=== PATIENT | male | born 1970 | race Caucasian/White ===

== ENCOUNTER 2020-08-17 16:16 | Outpatient (REF) | payer OTHER, SELFPAY | END 2020-08-17 16:17 | disposition home or self-care (01) | LOC: HO.LAB 16:16 | PROVIDERS: Visit Provider Internal Medicine | DX: Z20.828 Contact with and (suspected) exposure to other viral communicable diseases (principal) | CPT/HCPCS: 87635 ==

== ENCOUNTER 2020-09-02 14:16 | Outpatient (REF) | payer OTHER, SELFPAY | END 2020-09-02 14:17 | disposition home or self-care (01) | LOC: HO.LAB 14:16 | PROVIDERS: PCP Nurse Practitioner Family; Visit Provider Internal Medicine | DX: Z20.828 Contact with and (suspected) exposure to other viral communicable diseases (principal) | CPT/HCPCS: C9803; U0003 ==

== ENCOUNTER 2020-09-06 09:31 | Outpatient (REF) | payer OTHER, SELFPAY ==
[2020-09-06 10:24] LABS: MANUAL DIFF FLAG NO
[2020-09-06 10:32] LABS: Basophils Percent Auto 0.3 % (0-2); Eosinophils Absolute Auto 0.1 X10*3/uL (0.0-0.4); Eosinophils Percent Auto 0.7 % (0-4); Hematocrit 49.7 % (42-52); Imm Gran Abs Auto 0.04 X10*3/uL (0.00-0.03); Imm Gran Pct Auto 0.6 % (0.0-0.4); Lymphocytes Absolute Auto 2.8 X10*3/uL (1.2-4.9); Lymphocytes Percent Auto 40.7 % (20-40); Mean Corpuscular HGB Conc 32.2 g/dl (31.0-36.0); Mean Corpuscular Hemoglobin 26.9 pg (27.0-33.0); Mean Corpuscular Volume 83.7 fL (80-98); Mean Platelet Volume 10.7 fL (9.4-12.4); Monocytes Absolute Auto 0.5 X10*3/uL (0.1-1.2); Monocytes Percent Auto 7.2 % (2-11); Neutrophils Absolute Auto 3.5 X10*3/uL (2.0-8.3); Neutrophils Percent Auto 50.5 % (45-73); Platelet Count 231 X10*3/uL (160-400); Red Blood Count 5.94 X10*6/uL (4.60-5.80)
[2020-09-06 10:50] LABS: Anion Gap 12 (12-20); Blood Urea Nitrogen 17 mg/dL (9-16); Carbon Dioxide 27 mmol/L (22-29); Chloride 104 mmol/L (96-108); Cholesterol 128 mg/dL; Estimated Glomerular Filt Rate > 60; Glucose Fasting 97 mg/dL (60-99); HDL Cholesterol 41 mg/dL; LDL Cholesterol Calculated 70 mg/dl; Potassium 4.8 mmol/l (3.3-5.1); Sodium 138 mmol/L (135-145); Triglycerides 88 mg/dL
== END 2020-09-06 09:32 | disposition home or self-care (01) ==
LOC: HO.LAB 09:31
PROVIDERS: Visit Provider Nurse Practitioner Family
DX: E78.00 Pure hypercholesterolemia, unspecified (principal); I10 Essential (primary) hypertension
CPT/HCPCS: 36415; 80048; 80061; 85025

== ENCOUNTER → 2021-10-10 14:40 | Outpatient (REF) | payer OTHER, SELFPAY ==
[2021-10-10 15:00] LABS: MANUAL DIFF FLAG NO
[2021-10-10 15:20] LABS: Basophils Percent Auto 0.3 % (0-2); Eosinophils Percent Auto 0.3 % (0-4); Hematocrit 49.8 % (42.0-52.0); Hemoglobin 16.2 g/dl (14.0-18.0); Imm Gran Abs Auto 0.02 X10*3/uL (0.00-0.03); Imm Gran Pct Auto 0.3 % (0.0-0.4); Lymphocytes Absolute Auto 2.4 X10*3/uL (1.2-4.9); Lymphocytes Percent Auto 38.7 % (20-40); Mean Corpuscular HGB Conc 32.5 g/dl (31.0-36.0); Mean Corpuscular Hemoglobin 26.9 pg (27.0-33.0); Mean Corpuscular Volume 82.7 fL (80.0-98.0); Mean Platelet Volume 10.7 fL (9.4-12.4); Monocytes Absolute Auto 0.4 X10*3/uL (0.1-1.2); Neutrophils Absolute Auto 3.3 x10*3/uL (2.0-8.3); Neutrophils Percent Auto 53.4 % (45-73); Platelet Count 222 X10*3/uL (160-400); Red Blood Count 6.02 X10*6/uL (4.60-5.80); Red Cell Distribution Width 13.4 % (11.0-16.0); White Blood Count 6.1 X10*3/uL (4.8-10.8)
[2021-10-10 15:42] LABS: Alanine Aminotransferase 47 U/L (0-40); Albumin Level 4.5 g/dL (3.5-5.0); Alkaline Phosphatase 96 U/L (39-117); Anion Gap 13 (12-20); Aspartate Amino Transferase 26 U/L (5-37); Bilirubin Total 0.8 mg/dL (0.0-1.0); Blood Urea Nitrogen 16 mg/dL (9-16); Calcium 9.7 mg/dL (8.4-10.2); Carbon Dioxide 25 mmol/L (22-29); Chloride 107 mmol/L (96-108); Cholesterol 209 mg/dL; Estimated Glomerular Filt Rate > 60; Glucose Fasting 95 mg/dL (60-99); HDL Cholesterol 39 mg/dL; LDL Cholesterol Calculated 148 mg/dl; Potassium 4.5 mmol/L (3.3-5.1); Sodium 140 mmol/L (135-145); Total Protein 7.3 g/dL (6.5-8.0); Triglycerides 112 mg/dL
== END ==
LOC: HO.SL 14:40
PROVIDERS: Absent Provider Nurse Practitioner Family; PCP Internal Medicine; Visit Provider Internal Medicine
DX: Z00.00 Encounter for general adult medical examination without abnormal findings (principal); E66.01 Morbid (severe) obesity due to excess calories; I10 Essential (primary) hypertension; E78.00 Pure hypercholesterolemia, unspecified; F31.9 Bipolar disorder, unspecified
CPT/HCPCS: 36415; 80053; 80061; 85025; 95806

== ENCOUNTER 2021-11-19 01:09 | Inpatient (IN) | payer OTHER, SELFPAY ==
[2021-11-19] VITALS (11 sets, daily range): BP systolic 137–172; BP diastolic 72–113; PULSE 76–97; RESP 14–18; TEMP 36.4–36.9; O2SAT 96–98; BMI 35.2
--- NOTE | ~2021-11-19 | CT_ITS ---
EXAMINATION: CT ABDOMEN AND PELVIS WITH CONTRAST CLINICAL INFORMATION: COMPARISON: None TECHNIQUE: Multidetector volumetric images were obtained from the superior aspect of the liver through the pubic symphysis following administration 85 mL of Omnipaque 350 intravenous contrast. Sagittal and coronal reformatted images were obtained on the technologist's workstation. Oral contrast: Yes This CT examination was performed using dose optimization techniques as appropriate, variously including the following: *Automated exposure control *Adjustment of mA and/or kV according to patient size (this includes techniques or standardized protocols for targeted exams where dose is matched to indication/reason for exam; i.e. extremities or head) *Use of iterative reconstruction technique DLP: 1519 mGy-cm FINDINGS: LUNG BASES: The visualized lung bases are unremarkable. LIVER, GALLBLADDER, AND BILIARY TREE: The liver is normal in size and shape. The liver is low in attenuation suggestive of fatty infiltration. No focal hepatic lesion or biliary ductal dilatation is present. The gallbladder is unremarkable with no evidence of radiopaque gallstones, gallbladder wall thickening, or obvious pericholecystic inflammatory changes. PANCREAS: Unremarkable. SPLEEN: Unremarkable. ADRENAL GLANDS: Unremarkable. KIDNEYS AND URETERS: The kidneys are normal in size, shape, and attenuation. No hydronephrosis, hydroureter, or calculi seen. No perinephric stranding. BLADDER: Unremarkable. GASTROINTESTINAL TRACT: The stomach is very dilated and fluid-filled. There are abnormal loops of proximal small bowel/jejunum. This demonstrates marked wall thickening and wall edema and dilatation. There are edematous changes of the small bowel mesentery. There is a small amount of ascites. There is a gradual transition to more normal caliber small bowel without transition zone to suggest mechanical obstruction. Small and large bowel is otherwise unremarkable. The appendix is unremarkable. ABDOMINAL WALL: Left inguinal hernia containing fat. LYMPH NODES: Normal. VASCULAR: There is stranding of the fat in the small bowel mesentery. The SMV appears enlarged. There is an apparent filling defect or under opacification of the distal SMV and SMV splenic vein portal splenic confluence for example coronal reconstructed image 64. Appearance is suggestive of SMV thrombus. The SMA is patent. Vascular structures are otherwise unremarkable. The splenic veins and renal veins are patent. PELVIC VISCERA: Unremarkable. OSSEOUS STRUCTURES: There are degenerative changes of the spine and hip joints. CT/CT abdomen pelvis w con IMPRESSION: Abnormal proximal small bowel/jejunum with wall thickening and wall edema, dilatation, stranding of the small bowel mesentery fat and small amount of ascites. There is a filling defect in the distal SMV/portal splenic confluence suggestive of a thrombus. Bowel changes may be due to ischemia. Dilated fluid-filled stomach. Fatty liver. Fleischner guidelines were followed. Findings will be communicated by the [place] work flow adult daycare coordinator Ruben Oakley.
[2021-11-19 01:30] LABS: Basophils Percent Auto 0.2 % (0-2); Eosinophils Percent Auto 0.2 % (0-4); Hematocrit 47.4 % (42.0-52.0); Hemoglobin 15.8 g/dl (14.0-18.0); Imm Gran Abs Auto 0.04 X10*3/uL (0.00-0.03); Imm Gran Pct Auto 0.4 % (0.0-0.4); Lymphocytes Absolute Auto 2.7 X10*3/uL (1.2-4.9); Lymphocytes Percent Auto 27.7 % (20-40); MANUAL DIFF FLAG NO; Mean Corpuscular HGB Conc 33.3 g/dl (31.0-36.0); Mean Corpuscular Hemoglobin 27.7 pg (27.0-33.0); Mean Corpuscular Volume 83.2 fL (80.0-98.0); Mean Platelet Volume 10.1 fL (9.4-12.4); Monocytes Absolute Auto 0.8 X10*3/uL (0.1-1.2); Monocytes Percent Auto 8.6 % (2-11); Neutrophils Percent Auto 62.9 % (45-73); Platelet Count 204 X10*3/uL (160-400); Red Cell Distribution Width 13.2 % (11.0-16.0); White Blood Count 9.6 X10*3/uL (4.8-10.8)
[2021-11-19 01:45] LABS: COVID-19 Test Negative (Negative); IDNOW Serial# 9DD0AD1C
[2021-11-19 01:48] LABS: Anion Gap 15 (12-20); Blood Urea Nitrogen 17 mg/dL (9-16); Calcium 9.7 mg/dL (8.4-10.2); Carbon Dioxide 28 mmol/L (22-29); Chloride 104 mmol/L (96-108); Creatinine Clr Calc Pharmacy 88.6; Estimated Glomerular Filt Rate 60; Glucose Random 134 mg/dL (60-115); Lipase 35 U/L (8-78); Potassium 4.3 mmol/L (3.3-5.1); Sodium 143 mmol/L (135-145)
--- NOTE | 2021-11-19 05:50 | ED_ITS ---
HPI - Abdominal Pain General Chief Complaint: Abdominal Pain Stated Complaint: abd pain x5 days Time Seen by Provider: 11/19/21 05:04 Source: patient Mode of arrival: ambulatory History of Present Illness HPI narrative: 51-year-old male who presents with history of hypertension and states that for months he has had abdominal discomfort but over the past 5 days it is significantly worsened and he states that when he coughs taken felt all the way from his left shoulder down into his abdomen. He states he has daily bowel movements denies any urinary pain/burning/frequency, denies any fevers, chills, shortness of breath, denies any chest pain/palpitations or unexplained weight loss. Patient does however describe early satiety, stating that when he eats his abdomen becomes much larger and that he requires tea to help ?things go down?. He denies any alcohol or drug use. Related Data Previous Rx's Medication Instructions Recorded atorvastatin 80 mg tablet 80 mg PO DAILY #90 cap 05/09/21 clopidogrel 75 mg tablet 75 mg PO DAILY #90 cap 05/09/21 lisinopril 10 mg tablet 10 mg PO DAILY #90 tab 05/09/21 olanzapine 2.5 mg tablet 2.5 mg PO DAILY #90 cap 05/09/21 sertraline 50 mg tablet 50 mg PO DAILY #90 cap 05/09/21 aspirin 81 mg tablet,delayed 81 mg PO DAILY #90 tab 06/11/21 release Allergies Allergy/AdvReac Type Severity Reaction Status Date / Time No Known Allergies Allergy Verified 11/15/21 15:10 [No Known Allergies*] Review of Systems Review of Systems Pertinent positives and negatives as stated in HPI 10 point review of systems is otherwise negative. Physical Exam Vital Signs: Vital Signs: Last Vital Signs Temp 97.6 F 11/19/21 06:13 Pulse 89 11/19/21 09:38 Resp 15 11/19/21 09:38 BP 153/90 H 11/19/21 09:38 Pulse Ox 97 11/19/21 09:38 BMI result Body Mass Index 35.2 VITAL SIGNS: Reviewed. GENERAL: Well developed, well nourished, in no acute distress. HEAD: Normocephalic/atraumatic EYES: PERRLA, EOMI EARS: Ext canals without abnormality, TMs non-bulging and non-erythematous NOSE: Nares patent bilateral OROPHARYNX: no oral lesions noted, posterior pharynx clear LUNGS: Normal breath sounds. No adventitious sounds or accessory muscle use. SpO2<96> CARDIOVASCULAR: Regular rate and rhythm without noted murmurs, no JVD or lower extremity edema. ABDOMEN: Obese, Soft, diffusely tender, distended with bowel sounds. MUSCULOSKELETAL: No tenderness, deformities, or effusions noted on gross inspection. EXTREMITIES: No cyanosis, clubbing or edema. SKIN: Inspection of the skin reveals no rashes NEUROLOGIC: Alert and oriented x 4. Strength and sensation to light touch were grossly intact x 4. Course Course Course Narrative: 51-year-old male with history and clinical presentation consistent with abdominal distension and pain without fevers or chills and no significant surgical history. Review of all lab work negative for acute findings although there is noted elevation of the alkaline phosphatase and ALT. Review of CT findings consistent with SMV/portal vein thrombosis with significant dilation and stranding around bowel. No mention of perforation. I discussed this case with Dr. Martínez, vascular surgery, who recommends initiating heparin drip, routine consult to General surgery, NPO with bowel rest. I discussed case with inpatient hospitalist who accepts admission. MDM - Abdominal Pain Lab Data Result diagrams: 11/19/21 09:15 11/19/21 01:23 Labs: Lab Results 11/19/21 11/19/21 11/19/21 Range/Units 01:19 01:23 01:23 WBC 9.6 (4.8-10.8) X10*3/uL RBC 5.70 (4.60-5.80) X10*6/uL Hgb 15.8 (14.0-18.0) g/dl Hct 47.4 (42.0-52.0) % MCV 83.2 (80.0-98.0) fL MCH 27.7 (27.0-33.0) pg MCHC 33.3 (31.0-36.0) g/dl RDW 13.2 (11.0-16.0) % Plt Count 204 (160-400) X10*3/uL MPV 10.1 (9.4-12.4) fL Immature Gran % (Auto) 0.4 (0.0-0.4) % Neut % (Auto) 62.9 (45-73) % Lymph % (Auto) 27.7 (20-40) % Stokes % (Auto) 8.6 (2-11) % Eos % (Auto) 0.2 (0-4) % Baso % (Auto) 0.2 (0-2) % Lymph # (Auto) 2.7 (1.2-4.9) X10*3/uL Stokes # (Auto) 0.8 (0.1-1.2) X10*3/uL Eos # (Auto) 0.0 (0.0-0.4) X10*3/uL Baso # (Auto) 0.0 (0.0-0.2) X10*3/uL Abs Immat Gran (auto) 0.04 H (0.00-0.03) X10*3/uL Absolute Neuts (auto) 6.0 (2.0-8.3) x10*3/uL Absolute Nucleated RBC 0.000 (0.0-0.012) X10*3/uL Nucleated RBC % (auto) 0.0 (0.0-0.2) /100WBC PT (9.9-13.0) SEC INR (0.9-1.1) APTT PTT (Heparin Protocol) (53-77.9) SEC D-Dimer High Sensitivty NG/ML Sodium 143 (135-145) mmol/L Potassium 4.3 (3.3-5.1) mmol/L Chloride 104 (96-108) mmol/L Carbon Dioxide 28 (22-29) mmol/L Anion Gap 15 (12-20) BUN 17 H (9-16) mg/dL Creatinine 1.27 (0.5-1.4) mg/dL Estim Creat Clear Calc 88.6 Estimated GFR 60 Random Glucose 134 H (60-115) mg/dL Lactic Acid (0.5-2.0) mmol/L Calcium 9.7 (8.4-10.2) mg/dL Total Bilirubin 0.2 (0.0-1.0) mg/dL Direct Bilirubin 0.2 (0.0-0.5) mg/dL AST 27 (5-37) U/L ALT 45 H (0-40) U/L Alkaline Phosphatase 129 H D (39-117) U/L Troponin I High Sens (<3.5-35.0) ng/L Total Protein 7.5 (6.5-8.0) g/dL Albumin 4.2 (3.5-5.0) g/dL Lipase 35 (8-78) U/L Urine Color Urine Appearance Urine pH (5.0-8.0) Ur Specific [place] (1.005-1.025) Urine Protein (NEG-TRACE) MG/DL Urine Glucose (UA) (NEG) MG/DL Urine Ketones (NEG) MG/DL Urine Blood (NEG) Urine Nitrite (NEG) Ur Leukocyte Esterase (NEG) COVID-19 (QUAN) Negative (Negative) COVID-19 Clin Com See Note 11/19/21 11/19/21 11/19/21 Range/Units 06:49 09:15 09:15 WBC (4.8-10.8) X10*3/uL RBC (4.60-5.80) X10*6/uL Hgb (14.0-18.0) g/dl Hct (42.0-52.0) % MCV (80.0-98.0) fL MCH (27.0-33.0) pg MCHC (31.0-36.0) g/dl RDW (11.0-16.0) % Plt Count (160-400) X10*3/uL MPV (9.4-12.4) fL Immature Gran % (Auto) (0.0-0.4) % Neut % (Auto) (45-73) % Lymph % (Auto) (20-40) % Stokes % (Auto) (2-11) % Eos % (Auto) (0-4) % Baso % (Auto) (0-2) % Lymph # (Auto) (1.2-4.9) X10*3/uL Stokes # (Auto) (0.1-1.2) X10*3/uL Eos # (Auto) (0.0-0.4) X10*3/uL Baso # (Auto) (0.0-0.2) X10*3/uL Abs Immat Gran (auto) (0.00-0.03) X10*3/uL Absolute Neuts (auto) (2.0-8.3) x10*3/uL Absolute Nucleated RBC (0.0-0.012) X10*3/uL Nucleated RBC % (auto) (0.0-0.2) /100WBC PT 12.1 (9.9-13.0) SEC INR 1.1 (0.9-1.1) APTT Cancelled PTT (Heparin Protocol) 31.4 L (53-77.9) SEC D-Dimer High Sensitivty 1824 NG/ML Sodium (135-145) mmol/L Potassium (3.3-5.1) mmol/L Chloride (96-108) mmol/L Carbon Dioxide (22-29) mmol/L Anion Gap (12-20) BUN (9-16) mg/dL Creatinine (0.5-1.4) mg/dL Estim Creat Clear Calc Estimated GFR Random Glucose (60-115) mg/dL Lactic Acid 1.5 (0.5-2.0) mmol/L Calcium (8.4-10.2) mg/dL Total Bilirubin (0.0-1.0) mg/dL Direct Bilirubin (0.0-0.5) mg/dL AST (5-37) U/L ALT (0-40) U/L Alkaline Phosphatase (39-117) U/L Troponin I High Sens (<3.5-35.0) ng/L Total Protein (6.5-8.0) g/dL Albumin (3.5-5.0) g/dL Lipase (8-78) U/L Urine Color YELLOW Urine Appearance CLEAR Urine pH 8.0 (5.0-8.0) Ur Specific [place] 1.015 (1.005-1.025) Urine Protein TRACE (NEG-TRACE) MG/DL Urine Glucose (UA) NEG (NEG) MG/DL Urine Ketones NEG (NEG) MG/DL Urine Blood NEG (NEG) Urine Nitrite NEG (NEG) Ur Leukocyte Esterase NEG (NEG) COVID-19 (QUAN) (Negative) COVID-19 Clin Com 11/19/21 11/19/21 Range/Units 09:15 09:15 WBC 10.4 (4.8-10.8) X10*3/uL RBC 5.80 (4.60-5.80) X10*6/uL Hgb 15.6 (14.0-18.0) g/dl Hct 48.2 (42.0-52.0) % MCV 83.1 (80.0-98.0) fL MCH 26.9 L (27.0-33.0) pg MCHC 32.4 (31.0-36.0) g/dl RDW 13.1 (11.0-16.0) % Plt Count 203 (160-400) X10*3/uL MPV 10.2 (9.4-12.4) fL Immature Gran % (Auto) (0.0-0.4) % Neut % (Auto) (45-73) % Lymph % (Auto) (20-40) % Stokes % (Auto) (2-11) % Eos % (Auto) (0-4) % Baso % (Auto) (0-2) % Lymph # (Auto) (1.2-4.9) X10*3/uL Stokes # (Auto) (0.1-1.2) X10*3/uL Eos # (Auto) (0.0-0.4) X10*3/uL Baso # (Auto) (0.0-0.2) X10*3/uL Abs Immat Gran (auto) (0.00-0.03) X10*3/uL Absolute Neuts (auto) (2.0-8.3) x10*3/uL Absolute Nucleated RBC 0.000 (0.0-0.012) X10*3/uL Nucleated RBC % (auto) 0.0 (0.0-0.2) /100WBC PT (9.9-13.0) SEC INR (0.9-1.1) APTT PTT (Heparin Protocol) (53-77.9) SEC D-Dimer High Sensitivty NG/ML Sodium (135-145) mmol/L Potassium (3.3-5.1) mmol/L Chloride (96-108) mmol/L Carbon Dioxide (22-29) mmol/L Anion Gap (12-20) BUN (9-16) mg/dL Creatinine (0.5-1.4) mg/dL Estim Creat Clear Calc Estimated GFR Random Glucose (60-115) mg/dL Lactic Acid (0.5-2.0) mmol/L Calcium (8.4-10.2) mg/dL Total Bilirubin (0.0-1.0) mg/dL Direct Bilirubin (0.0-0.5) mg/dL AST (5-37) U/L ALT (0-40) U/L Alkaline Phosphatase (39-117) U/L Troponin I High Sens 9.2 (<3.5-35.0) ng/L Total Protein (6.5-8.0) g/dL Albumin (3.5-5.0) g/dL Lipase (8-78) U/L Urine Color Urine Appearance Urine pH (5.0-8.0) Ur Specific Hayes (1.005-1.025) Urine Protein (NEG-TRACE) MG/DL Urine Glucose (UA) (NEG) MG/DL Urine Ketones (NEG) MG/DL Urine Blood (NEG) Urine Nitrite (NEG) Ur Leukocyte Esterase (NEG) COVID-19 (QUAN) (Negative) COVID-19 Clin Com ECG Data Attestation: I personally reviewed and interpreted this ECG as follows: Prior ECG tracings: available for review (07/27/2020) Interpretation: Normal sinus rhythm, HR-84, no STEMI, WA/QRS/QTC are within normal limits. Critical Care Time Critical Care Time Critical Care Time: Yes Total Critical Care Time: 30 Attestation: I personally attest to this time spent taking care of the patient. Discharge Plan Discharge Clinical Impression: HTN (hypertension), Bipolar illness, CAD (coronary artery disease), Superior mesenteric vein thrombosis Patient Disposition: Admitted As Inpatient [facility]LY [facility], [facility] Past Medical History Source: nursing notes reviewed Medical History Bipolar illness Class 2 severe obesity with body mass index (BMI) of 35 to 39.9 with serious comorbidity High cholesterol HTN (hypertension) Surgical History Status post excision of lipoma Family History Family History Father Cancer Mother No problems noted. Family/Other FH: mental illness Mental health disorder Brother No problems noted. Son In good health Daughter In good health Substance use disorder Social History Social History Housing: Apartment Alcohol intake: never Patient Tobacco Use Status: Never used Tobacco e-Cigarette/Vaping Use: Never Used Second Hand Smoke Exposure: No Use of substances other than those prescribed or required for medical reasons: No Advance Directives: No Advance Directives Information Provided: No service: No Current occupational status: disabled Cognitive needs: No Hearing needs: No Vision needs: No
--- NOTE | 2021-11-19 05:51 | ECG_ITS ---
Test Reason : ABD PAIN Blood Pressure : / mmHG Vent. Rate : 084 BPM Atrial Rate : 084 BPM P-R Int : 146 ms QRS Dur : 090 ms QT Int : 344 ms P-R-T Axes : 016 -32 056 degrees QTc Int : 406 ms Normal sinus rhythm Left axis deviation Minimal voltage criteria for LVH, may be normal variant ( R in aVL ) Inferior infarct (cited on or before 06-AUG-2018) Anterior infarct , age undetermined Abnormal ECG When compared with ECG of 27-JUL-2020 21:48, T wave inversion no longer evident in Inferior leads Referred By: Sharita Flood Electronically Signed By:Mike Jon
[2021-11-19 06:07] LABS: Alanine Aminotransferase 45 U/L (0-40); Albumin Level 4.2 g/dL (3.5-5.0); Alkaline Phosphatase 129 U/L (39-117); Aspartate Amino Transferase 27 U/L (5-37); Bilirubin Direct 0.2 mg/dL (0.0-0.5); Bilirubin Total 0.2 mg/dL (0.0-1.0); Total Protein 7.5 g/dL (6.5-8.0)
[2021-11-19 06:58] LABS: Appearance Urine CLEAR; Color Urine YELLOW; Glucose Urine UA NEG (NEG); Leukocyte Esterase Urine NEG (NEG); Nitrite Urine NEG (NEG); Specific Gravity - Urine 1.015 (1.005-1.025); Urine Blood NEG (NEG); Urine Ketones NEG (NEG); Urine Protein TRACE MG/DL (NEG-TRACE)
[2021-11-19] MEDS: iohexoL 350 MG/ML 100 ML INFUS..BTL IV (07:51)
[2021-11-19] MEDS: amLODIPine Besylate 10 MG TABLET PO (08:42)
[2021-11-19 09:23] LABS: Hematocrit 48.2 % (42.0-52.0); Hemoglobin 15.6 g/dl (14.0-18.0); Mean Corpuscular HGB Conc 32.4 g/dl (31.0-36.0); Mean Corpuscular Hemoglobin 26.9 pg (27.0-33.0); Mean Corpuscular Volume 83.1 fL (80.0-98.0); Mean Platelet Volume 10.2 fL (9.4-12.4); Platelet Count 203 X10*3/uL (160-400); Red Cell Distribution Width 13.1 % (11.0-16.0); White Blood Count 10.4 X10*3/uL (4.8-10.8)
[2021-11-19 09:33] LABS: INTERNATIONAL NORM RATIO 1.1 (0.9-1.1); Lactic Acid 1.5 mmol/L (0.5-2.0); Prothrombin Time 12.1 SEC (9.9-13.0)
[2021-11-19 09:35] LABS: D Dimer High Sensitivity 1824 NG/ML
[2021-11-19 09:36] LABS: PTT Heparin Drip 31.4 SEC (53-77.9)
[2021-11-19 09:45] LABS: Troponin-I High Sensitivity 9.2 ng/L (<3.5-35.0)
--- NOTE | 2021-11-19 10:25 | PHA.MEDREC ---
Pharmacy Consult ? Medication Reconciliation Pharmacy has completed the medication reconciliation. pt does not take any medications on a regular basis.
[2021-11-19] MEDS: Heparin Sodium,Porcine 5,000 UNIT/ML VIAL 9200 UNIT IVPUSH (11:01)
[2021-11-19] MEDS: Heparin Sodium,Porcine/1/2NS 25,000 UNIT/250 ML IV.SOLN 20.66 UNIT IVCONT (11:04)
--- NOTE | 2021-11-19 13:31 | P.HPHOSP_ITS ---
History of Present Illness Date of Service: 11/19/21 Chief Complaint: abd pain 51-year-old male with past medical history of coronary artery disease hypertension, obesity, hyperlipidemia, bipolar disorder, presents to the hospital with complaints of abdominal pain. Patient reports diffuse worsening abdominal pain for the past 5 days. Patient reports that the pain is worse with eating even drinking small amount of water. 10/10 constant, keeping him from sleep. non-radiating, distnded abdomen. He denies any nausea or vomiting, reports bowel movements but very small and mostly constipated. Denies having any urinary symptoms. No lower extremity edema. No shortness of breath or chest pain. No weakness numbness or tingling. Vitals reviewed show no significant abnormality except for an elevated blood pr essure, Labs reviewed generally unremarkable but show an increase creatinine of 1.27 with a baseline around 1.07, normal lactic acid. Abdominal CT showedAbnormal proximal small bowel/jejunum with wall thickening and wall edema, dilatation, stranding of the small bowel mesentery fat and small amount of ascites. There is a filling defect in the distal SMV/portal splenic confluence suggestive of a thrombus.? Review of Systems Review of Systems: Yes all other systems are reviewed and are negative [facility] Medical History Bipolar illness Class 2 severe obesity with body mass index (BMI) of 35 to 39.9 with serious comorbidity High cholesterol HTN (hypertension) Family History Father Cancer Mother No problems noted. Family/Other FH: mental illness Mental health disorder Brother No problems noted. Son In good health Daughter In good health Substance use disorder Surgical History Status post excision of lipoma Social History Housing: Apartment Alcohol intake: never Patient Tobacco Use Status: Never used Tobacco e-Cigarette/Vaping Use: Never Used Second Hand Smoke Exposure: No Use of substances other than those prescribed or required for medical reasons: No Advance Directives: No Advance Directives Information Provided: No service: No Current occupational status: disabled Cognitive needs: No Hearing needs: No Vision needs: No Meds Allergies Allergy/AdvReac Type Severity Reaction Status Date / Time No Known Allergies Allergy Verified 11/15/21 15:10 [No Known Allergies*] Active Medications: Current Medications Acetaminophen (Acetaminophen Supp 650 Mg Supp.Rect) 650 mg ND Q6H PRN PRN Reason: Pain, Mild (Pain Scale 1-3) Heparin Sodium (Porcine) (Heparin Sodium,Porcine 5,000 Unit/Ml Vial) 4,600 unit 40 unit/kg (4600 unit) IVPUSH PROTOCOL BOLUS PRN; Protocol PRN Reason: 40 unit/kg - Heparin Protocol Heparin Sodium (Porcine) (Heparin Sodium,Porcine 5,000 Unit/Ml Vial) 9,200 unit 80 unit/kg (9200 unit) IVPUSH PROTOCOL BOLUS PRN; Protocol PRN Reason: 80 unit/kg - Heparin Protocol Heparin Sodium (Porcine) (Heparin Sodium,Porcine 5,000 Unit/Ml Vial) 9,200 unit IVPUSH PROTOCOL BOLUS PRN; Protocol PRN Reason: 80 unit/kg - Heparin Protocol Heparin Sodium/Sodium Chloride () 25,000 unit in 250 mls @ 20.657 mls/hr IVCONT .Q12H7M NELSON; Protocol Last Admin: 11/19/21 11:04 Dose: 18 units/kg/hr, 20.66 mls/hr Documented by: Lactated Ringer's (Lr) 1,000 mls @ 100 mls/hr IVCONT .Q10H [facility] Morphine Sulfate (Morphine Sulfate 4 Mg/Ml Cartridge) 4 mg IVPUSH Q4H PRN; Protocol PRN Reason: Pain, Severe (Pain Scale 7-10) Ondansetron HCl (Ondansetron Hcl 4 Mg/2 Ml Vial) 4 mg IVPUSH Q8H PRN PRN Reason: Nausea and Vomiting Pharmacy Consult (Consult Rx Perform Med Rec) 1 each MISCELLANE ONCE PRN PRN Reason: Consult order Sodium Chloride (0.9 % Sodium Chloride Flush 3 Ml Syringe) 3 ml IVFLUSH QSHIFT [facility] Home Medications Medication Instructions Recorded Confirmed Last Taken Type No Known Home Meds 11/19/21 11/19/21 Unknown History Physical Exam Vital Signs and Narrative: Vital Signs: Last Vital Signs Temp 97.6 F 11/19/21 06:13 Pulse 78 11/19/21 12:04 Resp 14 11/19/21 12:04 BP 158/72 H 11/19/21 12:04 Pulse Ox 97 11/19/21 12:04 BMI result Body Mass Index 35.2 Const: General: cooperative and no acute distress Orientation/consciousness: patient oriented x3 Eyes: General: appearance normal, both eyes and all related structures Pupils: Equal, round and reactive pupils present Resp: Effort & Inspection: normal respiratory effort Auscultation: clear to auscultation bilaterally Cardio: Rate: regular rate Rhythm: regular rhythm GI: Other: obese abdomine, tender to minimal palpation Skin: General skin exam: no rashes or lesions noted Neuro: General: patient oriented x3 Cranial nerves: Yes Equal, round and reactive pupils present Cognition (Neuro): normal cognition Extrem: General: Yes normal to inspection and Yes no pedal edema Results Labs CBC and Chem 7: 11/19/21 09:15 11/19/21 01:23 Labs: Laboratory Results - last 24 hr 11/19/21 11/19/21 11/19/21 01:19 01:23 01:23 MCV 83.2 MCH 27.7 MCHC 33.3 RDW 13.2 Plt Count 204 MPV 10.1 Immature Gran % (Auto) 0.4 Neut % (Auto) 62.9 Lymph % (Auto) 27.7 [place] % (Auto) 8.6 Eos % (Auto) 0.2 Baso % (Auto) 0.2 Lymph # (Auto) 2.7 [place] # (Auto) 0.8 Eos # (Auto) 0.0 Baso # (Auto) 0.0 Abs Immat Gran (auto) 0.04 H Absolute Neuts (auto) 6.0 Absolute Nucleated RBC 0.000 Nucleated RBC % (auto) 0.0 PT INR APTT PTT (Heparin Protocol) D-Dimer High Sensitivty Anion Gap 15 Creatinine 1.27 Estim Creat Clear Calc 88.6 Estimated GFR 60 Random Glucose 134 H Lactic Acid Calcium 9.7 Total Bilirubin 0.2 Direct Bilirubin 0.2 AST 27 ALT 45 H Alkaline Phosphatase 129 H D Troponin I High Sens Total Protein 7.5 Albumin 4.2 Lipase 35 Urine Color Urine Appearance Urine pH Ur Specific [place] Urine Protein Urine Glucose (UA) Urine Ketones Urine Blood Urine Nitrite Ur Leukocyte Esterase COVID-19 (QUAN) Negative COVID-19 Clin Com See Note 11/19/21 11/19/21 11/19/21 06:49 09:15 09:15 MCV MCH MCHC RDW Plt Count MPV Immature Gran % (Auto) Neut % (Auto) Lymph % (Auto) [place] % (Auto) Eos % (Auto) Baso % (Auto) Lymph # (Auto) [place] # (Auto) Eos # (Auto) Baso # (Auto) Abs Immat Gran (auto) Absolute Neuts (auto) Absolute Nucleated RBC Nucleated RBC % (auto) PT 12.1 INR 1.1 APTT Cancelled PTT (Heparin Protocol) 31.4 L D-Dimer High Sensitivty 1824 Anion Gap Creatinine Estim Creat Clear Calc Estimated GFR Random Glucose Lactic Acid 1.5 Calcium Total Bilirubin Direct Bilirubin AST ALT Alkaline Phosphatase Troponin I High Sens Total Protein Albumin Lipase Urine Color YELLOW Urine Appearance CLEAR Urine pH 8.0 Ur Specific [place] 1.015 Urine Protein TRACE Urine Glucose (UA) NEG Urine Ketones NEG Urine Blood NEG Urine Nitrite NEG Ur Leukocyte Esterase NEG COVID-19 (QUAN) COVID-19 [place] 11/19/21 11/19/21 09:15 09:15 MCV 83.1 MCH 26.9 L MCHC 32.4 RDW 13.1 Plt Count 203 MPV 10.2 Immature Gran % (Auto) Neut % (Auto) Lymph % (Auto) [place] % (Auto) Eos % (Auto) Baso % (Auto) Lymph # (Auto) [place] # (Auto) Eos # (Auto) Baso # (Auto) Abs Immat Gran (auto) Absolute Neuts (auto) Absolute Nucleated RBC 0.000 Nucleated RBC % (auto) 0.0 PT INR APTT PTT (Heparin Protocol) D-Dimer High Sensitivty Anion Gap Creatinine Estim Creat Clear Calc Estimated GFR Random Glucose Lactic Acid Calcium Total Bilirubin Direct Bilirubin AST ALT Alkaline Phosphatase Troponin I High Sens 9.2 Total Protein Albumin Lipase Urine Color Urine Appearance Urine pH Ur Specific [place] Urine Protein Urine Glucose (UA) Urine Ketones Urine Blood Urine Nitrite Ur Leukocyte Esterase COVID-19 (QUAN) COVID-19 Clin Com Imaging Radiologist's Impressions: Impressions Abdomen/Pelvis CT 11/19/21 08:04 IMPRESSION: Abnormal proximal small bowel/jejunum with wall thickening and wall edema, dilatation, stranding of the small bowel mesentery fat and small amount of ascites. There is a filling defect in the distal SMV/portal splenic confluence suggestive of a thrombus. Bowel changes may be due to ischemia. Dilated fluid-filled stomach. Fatty liver. Fleischner guidelines were followed. Findings will be communicated by the [place] work flow milking worker Ruben Oakley. Assessment and Plan (1) Superior mesenteric vein thrombosis: Status: Acute This is a 51-year-old male with past medical history of hypertension hyperlipidemia, bipolar disorder, coronary artery disease as well as obesity p resents to the hospital with complaints of abdominal pain found to have superior mesenteric vein thrombosis/portal vein thrombosis # SMV/portal vein thrombosis - no history of arrhythmia/AFib or a flutter - lactic acid normal - vascular surgery consult by ED recommended NPO, bowel rest and heparin GGT, - morphine for pain control - vascular to evaluate patient in a.m. # history of coronary artery disease - no chest pain - not compliant with medications - will need follow-up outpatient with battery container inspector # hypertension - stable - noncompliant with meds - if continues to be hypertensive will consider starting him on p.o. medication while in the ED once above resolves DVT prophylaxis: Heparin ggt Quality Stroke Does the patient have a stroke diagnosis?: No VTE Prior VTE?: No VTE Risk Level:: Medical - moderate - high VTE Device Contraindication: Treatment Not Indicated VTE Drug Contraindication: N/A - Med Ordered
[2021-11-19] MEDS: Lactated Ringers 1,000 ML 100 ML IVCONT (15:05)
[2021-11-19 15:59] LABS: PTT Heparin Drip 152.8 SEC (53-77.9)
[2021-11-19 17:34] LABS: PTT Heparin Drip 62.9 SEC (53-77.9)
[2021-11-19] MEDS: Morphine Sulfate 4 MG/ML CARTRIDGE IVPUSH (20:43)
[2021-11-20 00:36] LABS: PTT Heparin Drip 61.2 SEC (53-77.9)
[2021-11-20] MEDS: Lactated Ringers 1,000 ML 100 ML IVCONT ×3 (03:43→23:29)
[2021-11-20 04:00] VITALS: BP 125/84; PULSE 77; RESP 17; TEMP 36.8; O2SAT 98
[2021-11-20] MEDS: Heparin Sodium,Porcine/1/2NS 25,000 UNIT/250 ML IV.SOLN 16.08 UNIT IVCONT ×2 (04:51→23:23)
[2021-11-20 05:42] LABS: MANUAL DIFF FLAG NO
[2021-11-20 05:46] LABS: Basophils Percent Auto 0.2 % (0-2); Eosinophils Percent Auto 0.3 % (0-4); Hematocrit 45.2 % (42.0-52.0); Hemoglobin 14.5 g/dl (14.0-18.0); Imm Gran Abs Auto 0.03 X10*3/uL (0.00-0.03); Imm Gran Pct Auto 0.3 % (0.0-0.4); Lymphocytes Absolute Auto 2.6 X10*3/uL (1.2-4.9); Lymphocytes Percent Auto 28.3 % (20-40); Mean Corpuscular HGB Conc 32.1 g/dl (31.0-36.0); Mean Corpuscular Hemoglobin 27.2 pg (27.0-33.0); Mean Corpuscular Volume 84.6 fL (80.0-98.0); Mean Platelet Volume 10.4 fL (9.4-12.4); Monocytes Absolute Auto 0.6 X10*3/uL (0.1-1.2); Monocytes Percent Auto 6.9 % (2-11); Neutrophils Absolute Auto 5.8 x10*3/uL (2.0-8.3); Platelet Count 167 X10*3/uL (160-400); Red Blood Count 5.34 X10*6/uL (4.60-5.80); Red Cell Distribution Width 13.1 % (11.0-16.0)
[2021-11-20 05:54] LABS: INTERNATIONAL NORM RATIO 1.1 (0.9-1.1)
[2021-11-20 06:02] LABS: Anion Gap 13 (12-20); Blood Urea Nitrogen 11 mg/dL (9-16); Calcium 9.2 mg/dL (8.4-10.2); Carbon Dioxide 25 mmol/L (22-29); Chloride 104 mmol/L (96-108); Creatinine Clr Calc Pharmacy 127.9; Estimated Glomerular Filt Rate > 60; Glucose Random 103 mg/dL (60-115); Potassium 4.4 mmol/L (3.3-5.1); Sodium 138 mmol/L (135-145)
[2021-11-20] MEDS: Morphine Sulfate 4 MG/ML CARTRIDGE IVPUSH ×4 (07:25→20:48)
[2021-11-20 08:00] VITALS: BP 129/78; PULSE 88; RESP 20; TEMP 36.9; O2SAT 97
--- NOTE | 2021-11-20 08:38 | MHC.CM.PN ---
CM met with Patient at bedside and addressed IMM, providing him with the original and placing a copy on the chart. Patient lives alone in his apartment and he uses no DME to assist with mobility. Patient's goal is to return home and CM has initiated and will follow for dc planning. PCP is Dr.Kartik Porter.
--- NOTE | 2021-11-20 09:48 | MHC.CM.PN ---
CM received a message from [facility] RN that a [facility] Worker,Britany @ [phone], has requested a new referral to [facility] for Med Management; referrals have been made and CM will follow.
--- NOTE | 2021-11-20 11:16 | P.PNIM_ITS ---
Subjective Subjective Date of Service: 11/20/21 Interval History: Complaining of lower abdominal pain no nausea no vomiting, no other acute issues overnight. Review of Systems Review of Systems: Yes all other systems are reviewed and are negative Physical Exam Vital Signs: Vital Signs: Last Vital Signs Temp 98.4 F 11/20/21 08:00 Pulse 88 11/20/21 08:00 Resp 20 11/20/21 08:00 BP 129/78 11/20/21 08:00 Pulse Ox 97 11/20/21 08:00 BMI result Body Mass Index 35.2 Const: Other: General resting comfortably,no acute distress. Neck supple no JVD. CVS regular rate rhythm, Respiratory lungs clear to auscultation, diminished at bases, no respiratory distress, no wheeze, no rhonchi. Gastrointestinal abdomen soft, lower abdominal tenderness with palpation, obese, guarding , no rigidity. Extremities no edema. Neuro nonfocal , speech clear. Skin no rash Objective Data Active Medications Acetaminophen (Acetaminophen Supp 650 Mg Supp.Rect) 650 mg CO Q6H PRN PRN Reason: Pain, Mild (Pain Scale 1-3) Heparin Sodium (Porcine) (Heparin Sodium,Porcine 5,000 Unit/Ml Vial) 4,600 unit 40 unit/kg (4600 unit) IVPUSH PROTOCOL BOLUS PRN; Protocol PRN Reason: 40 unit/kg - Heparin Protocol Heparin Sodium (Porcine) (Heparin Sodium,Porcine 5,000 Unit/Ml Vial) 9,200 unit 80 unit/kg (9200 unit) IVPUSH PROTOCOL BOLUS PRN; Protocol PRN Reason: 80 unit/kg - Heparin Protocol Heparin Sodium (Porcine) (Heparin Sodium,Porcine 5,000 Unit/Ml Vial) 9,200 unit IVPUSH PROTOCOL BOLUS PRN; Protocol PRN Reason: 80 unit/kg - Heparin Protocol Heparin Sodium/Sodium Chloride () 25,000 unit in 250 mls @ 20.657 mls/hr IVCONT .Q12H7M [facility]; Protocol Last Admin: 11/20/21 07:32 Dose: Not Given Documented by: DANTE Non-Admin Reason: IV Running Lactated Ringer's (Lr) 1,000 mls @ 100 mls/hr IVCONT .Q10H [facility] Last Admin: 11/20/21 07:33 Dose: Not Given Documented by: DANTE Non-Admin Reason: IV Running Morphine Sulfate (Morphine Sulfate 4 Mg/Ml Cartridge) 4 mg IVPUSH Q4H PRN; Protocol PRN Reason: Pain, Severe (Pain Scale 7-10) Last Admin: 11/20/21 07:25 Dose: 4 mg Documented by: DANTE Ondansetron HCl (Ondansetron Hcl 4 Mg/2 Ml Vial) 4 mg IVPUSH Q8H PRN PRN Reason: Nausea and Vomiting Pharmacy Consult (Consult Rx Perform Med Rec) 1 each MISCELLANE ONCE PRN PRN Reason: Consult order Sodium Chloride (0.9 % Sodium Chloride Flush 3 Ml Syringe) 3 ml IVFLUSH QSHIFT [facility] Last Admin: 11/20/21 07:31 Dose: Not Given Documented by: DANTE Non-Admin Reason: IV Running Labs CBC & Chem 7: 11/20/21 05:23 11/20/21 05:23 Labs: Laboratory Results - last 24 hr 11/19/21 11/19/21 11/20/21 15:32 17:15 00:20 MCV MCH MCHC RDW Plt Count MPV Immature Gran % (Auto) Neut % (Auto) Lymph % (Auto) [place] % (Auto) Eos % (Auto) Baso % (Auto) Lymph # (Auto) [place] # (Auto) Eos # (Auto) Baso # (Auto) Abs Immat Gran (auto) Absolute Neuts (auto) Absolute Nucleated RBC Nucleated RBC % (auto) PT INR PTT (Heparin Protocol) 152.8 H* D 62.9 D 61.2 Anion Gap Estim Creat Clear Calc Estimated GFR Random Glucose Calcium 11/20/21 11/20/21 11/20/21 05:23 05:23 05:23 MCV 84.6 MCH 27.2 MCHC 32.1 RDW 13.1 Plt Count 167 MPV 10.4 Immature Gran % (Auto) 0.3 Neut % (Auto) 64.0 Lymph % (Auto) 28.3 [place] % (Auto) 6.9 Eos % (Auto) 0.3 Baso % (Auto) 0.2 Lymph # (Auto) 2.6 [place] # (Auto) 0.6 Eos # (Auto) 0.0 Baso # (Auto) 0.0 Abs Immat Gran (auto) 0.03 Absolute Neuts (auto) 5.8 Absolute Nucleated RBC 0.000 Nucleated RBC % (auto) 0.0 PT 13.0 INR 1.1 PTT (Heparin Protocol) Anion Gap 13 Estim Creat Clear Calc 127.9 Estimated GFR > 60 Random Glucose 103 Calcium 9.2 Assessment and Plan (1) Superior mesenteric vein thrombosis: Status: Acute (2) Bipolar illness: Status: Acute (3) HTN (hypertension): Status: Acute (4) High cholesterol: Status: Acute Assessment and Plan: 51-year-old male with past medical history of hypertension hyperlipidemia, bipolar disorder, coronary artery disease as well as obesity presents to the hospital with complaints of abdominal pain found to have superior mesenteric vein thrombosis/portal vein thrombosis # SMV/portal vein thrombosis - no history of arrhythmia/AFib or a flutter, lactic acid normal - case discussed with Dr. Martínez he recommend to continue IV heparin and start oral anticoagulant Will start clear liquid diet and advance as tolerated, when able to take by mouth will start NOAC Continue morphine for pain control, monitor PTT Will discharge home with [facility] service # history of coronary artery disease - no chest pain - not compliant with medications - outpatient follow-up with gravity flow irrigator # hypertension - stable - noncompliant with meds - noted to have elevated blood pressure in the emergency room likely due to pain, current blood pressure is stable continue to follow BP # obesity recommend low-calorie diet DVT prophylaxis: Heparin ggt Quality Stroke Does the patient have a stroke diagnosis?: No VTE Prior VTE?: No VTE Risk Level:: Medical - moderate - high VTE Device Contraindication: Treatment Not Indicated VTE Drug Contraindication: N/A - Med Ordered
[2021-11-20 12:00] VITALS: BP 145/90; PULSE 81; RESP 20; TEMP 37.2
--- NOTE | 2021-11-20 13:33 | P.CONGS_ITS ---
History of Present Illness Consult details Consult date: 11/20/21 Reason for consult: abdominal pain Narrative: 51-year-old gentleman presents for evaluation regarding abdominal pain. This began several days ago and he has had a continuous lower abdominal pain. In general he has been tolerating a diet. He developed this lower abdominal pain over the weekend. He subsequently obtain a CT scan. He was discovered to have SMV thrombosis. He denies any history of alcohol abuse. He has a nondiabetic. When discussing his smoking history he says he is a nonsmok er when asked when he quit he said that is between me in God. He reports no bloody bowel movements. In general his only complaint is of some abdominal bloating and some diffuse discomfort. Review of Systems Review of Systems: Yes all other systems are reviewed and are negative Constitutional: Constitutional: Reports no additional constitutional complaints ENT: Reports Normal hearing present Cardiovascular: Cardiovascular: Denies chest pain, Denies chest pain at rest, Denies chest pain with activity and Denies pedal edema Respiratory: Respiratory: Denies cough Gastrointestinal: Gastrointestinal: Reports abdominal pain and Reports bloating Musculoskeletal: Musculoskeletal: Denies abnormal gait, Denies muscle cramps and Denies radiating pain into limb Integumentary/Breasts: Skin/Breast: Denies skin ulcer and Denies wounds Neurologic: Reports Normal hearing present and Denies abnormal gait Psychiatric: Psychiatric: Reports no additional psychiatric complaints PMFSH Past Medical History Medical History Bipolar illness Class 2 severe obesity with body mass index (BMI) of 35 to 39.9 with serious comorbidity High cholesterol HTN (hypertension) Family History Family History Father Cancer Mother No problems noted. Family/Other FH: mental illness Mental health disorder Brother No problems noted. Son In good health Daughter In good health Substance use disorder Surgical History Surgical History Status post excision of lipoma Social History Social History Household Members: Significant Other Housing: House Do you presently have visiting nurse or other home services: No Alcohol intake: never Patient Tobacco Use Status: Never used Tobacco e-Cigarette/Vaping Use: Never Used Second Hand Smoke Exposure: No service: No Current occupational status: disabled Cognitive needs: No Hearing needs: No Vision needs: No Meds Allergies Allergy/AdvReac Type Severity Reaction Status Date / Time No Known Allergies Allergy Verified 11/15/21 15:10 [No Known Allergies*] Active Medications: Current Medications Acetaminophen (Acetaminophen Supp 650 Mg Supp.Rect) [address] Q6H PRN PRN Reason: Pain, Mild (Pain Scale 1-3) Heparin Sodium (Porcine) (Heparin Sodium,Porcine 5,000 Unit/Ml Vial) 4,600 unit 40 unit/kg (4600 unit) IVPUSH PROTOCOL BOLUS PRN; Protocol PRN Reason: 40 unit/kg - Heparin Protocol Heparin Sodium (Porcine) (Heparin Sodium,Porcine 5,000 Unit/Ml Vial) 9,200 unit 80 unit/kg (9200 unit) IVPUSH PROTOCOL BOLUS PRN; Protocol PRN Reason: 80 unit/kg - Heparin Protocol Heparin Sodium (Porcine) (Heparin Sodium,Porcine 5,000 Unit/Ml Vial) 9,200 unit IVPUSH PROTOCOL BOLUS PRN; Protocol PRN Reason: 80 unit/kg - Heparin Protocol Heparin Sodium/Sodium Chloride () 25,000 unit in 250 mls @ 20.657 mls/hr IVCONT .Q12H7M [facility]; Protocol Last Admin: 11/20/21 07:32 Dose: Not Given Documented by: Lactated Ringer's (Lr) 1,000 mls @ 100 mls/hr IVCONT .Q10H [facility] Last Admin: 11/20/21 07:33 Dose: Not Given Documented by: Morphine Sulfate (Morphine Sulfate 4 Mg/Ml Cartridge) 4 mg IVPUSH Q4H PRN; Protocol PRN Reason: Pain, Severe (Pain Scale 7-10) Last Admin: 11/20/21 11:54 Dose: 4 mg Documented by: Ondansetron HCl (Ondansetron Hcl 4 Mg/2 Ml Vial) 4 mg IVPUSH Q8H PRN PRN Reason: Nausea and Vomiting Pharmacy Consult (Consult Rx Perform Med Rec) 1 each MISCELLANE ONCE PRN PRN Reason: Consult order Sodium Chloride (0.9 % Sodium Chloride Flush 3 Ml Syringe) [facility] Last Admin: 11/20/21 07:31 Dose: Not Given Documented by: Home Medications Medication Instructions Recorded Confirmed Last Taken Type No Known Home Meds 11/19/21 11/19/21 Unknown History Physical Exam Vital Signs: Vital Signs: Last Vital Signs Temp 98.9 F 11/20/21 12:00 Pulse 81 11/20/21 12:00 Resp 20 11/20/21 12:00 BP 145/90 H 11/20/21 12:00 Pulse Ox 97 11/20/21 08:00 BMI result Body Mass Index 35.2 Const: General: cooperative, healthy appearing and comfortable Orientation/consciousness: oriented to person, oriented to place and oriented to time HENMT: Head: Yes normal to inspection Neck: Neck: Yes normal visual inspection Carotids: no bruits Chest: Chest palpation & inspection: normal inspection of the chest Resp: Effort & Inspection: normal respiratory effort and able to speak in complete sentences Auscultation: clear to auscultation bilaterally, no crackles, no rales, no rhonchi and no wheezes Cardio: Rate: regular rate Rhythm: regular rhythm Heart sounds: S1 normal heart sound present and S2 normal heart sound present Bruits: no carotid bruits Peripheral pulses: Peripheral pulses 2+ throughout GI: Inspection: Yes normal to inspection Palpation (GI): Firmness to palpation present (GI), no guarding and No Rebound tenderness present Auscultation: normal bowel sounds Skin: Wounds: no wounds Hair: normal Neuro: General: oriented to person, oriented to place and oriented to time Cranial nerves: Yes CN's II-XII intact bilaterally and Yes Normal hearing present Cognition (Neuro): normal cognition Motor exam (neuro): 5/5 motor strength present throughout Extrem: Other: venous exam: No significant superficial varicosities or spider telangiectasias, minimal edema General: No clubbing, No cyanosis and No edema Psych: Appearance: grossly normal Mental Status: mental status grossly normal Speech and movement: Normal speech and movement present Results Labs Result diagrams: 11/20/21 05:23 11/20/21 05:23 Labs: Abnormal lab results 11/19/21 Range/Units 15:32 PTT (Heparin Protocol) 152.8 H* D (53-77.9) SEC Short CBC 11/20/21 Range/Units 05:23 WBC 9.0 (4.8-10.8) X10*3/uL Hgb 14.5 (14.0-18.0) g/dl Hct 45.2 (42.0-52.0) % Plt Count 167 (160-400) X10*3/uL BMP 11/20/21 05:23 Sodium 138 Potassium 4.4 Chloride 104 Carbon Dioxide 25 BUN 11 Creatinine 0.88 Calcium 9.2 Urine 11/19/21 Range/Units 06:49 Urine Color YELLOW Urine Appearance CLEAR Urine pH 8.0 (5.0-8.0) Ur Specific [place] 1.015 (1.005-1.025) Urine Protein TRACE (NEG-TRACE) MG/DL Urine Glucose (UA) NEG (NEG) MG/DL All other labs normal. Assessment and Plan (1) Superior mesenteric vein thrombosis: Status: Acute In short patient has superior mesenteric vein thrombosis. Unclear etiology of this. Denies any family history thrombosis. In general appears to be doing relatively well. He is being maintained on a heparin drip. I would advance his diet slowly. If he is tolerating a regular diet would switch him over to p.o. anticoagulant and subsequently discharged him. Upon discharge he may benefit from a hematology in [facility] [place] [facility] evaluation as an outpatient. Thank you for allowing us to assist in his care. If there are any questions or concerns please do not hesitate to contact us. Procedures Date of Service Date of Service: 11/20/21
--- NOTE | 2021-11-20 14:32 | CA_ITS ---
Transthoracic Echocardiogram Patient (Last, First, Middle): Yomi Ponce E Gender: Male Date of : 1970 Age: 51 Procedure Date: 11/20/2021 Procedure Type: Transthoracic Echocardiogram Location: S3W Height: 180.34 cm Weight: 114.76 kg BSA: 2.33 m2 Heart Rate: bpm BP: 125 / 84 mmHg Emr Trainer: DUONG Nava MD: Cinthia Julian MD Production Expediter: Glen Brewer MD Symptoms: portal thrombus Study Quality: Fair ECG Rhythm: Sinus Conclusions: - 1. Normal LV systolic function with moderate LVH with LVEF of 60-65% with grade 1 diastolic dysfunction 2. Normal cardiac valvular Doppler 3. Normal RV systolic pressure 4. No pericardial effusion Findings Left Ventricle Normal left ventricular size and systolic function. There is moderately increased left ventricular wall thickness. The visually estimated ejection fraction is between 60-65%. Spectral Doppler is indicative of an impaired relaxation filling pattern. E/E prime ratio is <8, consistent with normal filling pressures. Wall Motion Rest Echo Findings The basal inferior and basal inferolateral segments are akinetic. All other scored wall segments showed normal motion. Right Ventricle Normal right ventricular cavity size and systolic function. Atria The left atrium is likely dilated. Interatrial shunt cannot be excluded. The right atrium is normal in size. Aortic Valve Normal aortic valve structure and function. There is no aortic valve stenosis. There is no aortic valve regurgitation. Mitral Valve Normal mitral valve structure and function. There is mild mitral annular calcification. There is trace mitral valve regurgitation. There is no mitral valve stenosis. Pulmonic Valve The pulmonic valve was not well visualized. Tricuspid Valve Likely normal tricuspid valve structure and function. There is trace tricuspid valve regurgitation. The right ventricular systolic pressure is normal. The right ventricular systolic pressure is 11 mmHg. Normal right atrial pressure. There is no evidence of pulmonary hypertension. Great Vessels All visible segments of the aorta are normal in size. The pulmonary artery was not well visualized. Venous The inferior vena cava is normal in size and collapses greater than 50% with inspiration. Pericardium/Pleural There is no evidence of pericardial effusion. Prior Study Comparison Changes noted compared to prior study dated: 03/04/2019. LVH is not as prominent Measurements 2D Linear Measurements IVSd: 1.48 0.6-0.9/0.6-1.0 cm LVIDd: 5.24 3.9-5.3/4.2-5.9 cm LVIDd Index: 2.25 2.4-3.2/2.2-3.1 cm/m2 LVIDs: 3.89 2.0-3.6 cm LVPWd: 1.22 0.7-1.1 cm Ao Root: 3.60 2.1-3.5 cm LA Diam: 4.30 2.7-3.8/3.0-4.0 cm LAIDs Index: 1.85 1.5-2.3 cm/m2 LV Mass: 370.96 67-162/88-224 g LV Mass Index: 159.21 43-95/49-115 g/m2 LVOT Diam: 2.10 3.0+(-)1.3 cm 2D Systolic Function EF 4C: 65.00 >55% EF 2C: 63.80 >55% EF BiP: 64.30 >55% Mitral Valve MV Pk E: 0.90 MV PK A: 1.11 MV Decel Time: 204.00 E/A: 0.80 E'Lateral: 7.40 E'Medial: 6.42 E/E' Med: 14.00 E/E' Lat: 12.10 PHT: 60.00 MVA PHT: 3.67 Decel [place]: 4.39 Aortic Valve AoV Pk Elmer: 1.31 AoV Mn Elmer: 0.96 AoV VTI: 0.24 AoV Pk Grad: 7.00 Aov Mn Grad: 4.00 MARTELL Cont.VTI: 2.56 LVOT LVOT Pk Elmer: 0.95 LVOT Mn Elmer: 0.67 LVOT VTI: 0.18 LVOT Pk Grad: 4.00 LVOT Mn Grad: 2.00 LVOT Diam: 2.10 LVOT Area: 3.46 Diastolic Function MV Pk E: 0.90 MV Pk A: 1.11 E/A: 0.80 E'Medial: 6.42 E/E' Med: 14.00 E' Laterial: 7.40 E/E' Lat: 12.10 Right Ventricle TAPSE (mm): 2.19 TVS' [place]: 13.50 Tricuspid Valve TR Pk Elmer: 1.38 TR Pk Grad: 8.00 RA Press: 3.00 RVSP: 11.00 Great Vessels Aorta Ao Root-2D: 3.60 2.0-3.7 cm Ao Asc: 3.60 2.1-3.4 cm Ao Arch: 3.20 Updated in Other Vendor System with Status of Final Glen Brewer MD electronically signed on 11/20/2021 4:40:13 PM with status of Final
[2021-11-20 15:26] VITALS: BP 124/85; PULSE 75; RESP 18; TEMP 36.9; O2SAT 96
[2021-11-20 16:09] VITALS: RESP 18
[2021-11-20 19:58] VITALS: BP 126/91; PULSE 76; RESP 18; TEMP 36.6; O2SAT 97
[2021-11-21] VITALS (10 sets, daily range): BP systolic 131–167; BP diastolic 82–93; PULSE 53–87; RESP 16–18; TEMP 36.6–37.1; O2SAT 96–98
[2021-11-21] MEDS: Morphine Sulfate 4 MG/ML CARTRIDGE IVPUSH ×5 (01:08→20:57)
--- NOTE | 2021-11-21 08:41 | P.PNVS_ITS ---
Subjective Subjective Date of Service: 11/21/21 Patient reports: no new complaints and feels better Interval history: 51-year-old gentleman with abdominal pain. Reports that he did tolerate some clears yesterday. He was able to usually takedown broth and warm liquids. He reports intermittent abdominal pain but not severe. He is doing relatively well. At the time of my exam he was relatively comfortable up in a chair. He now is for routine postprocedure follow-up. Physical Exam Vital Signs: Vital Signs: Last Vital Signs Temp 98.8 F 11/21/21 07:27 Pulse 86 11/21/21 07:27 Resp 18 11/21/21 07:27 BP 146/90 H 11/21/21 07:27 Pulse Ox 98 11/21/21 07:27 BMI result Body Mass Index 35.2 Const: General: cooperative, healthy appearing and no acute distress Orientation/consciousness: oriented to person, oriented to place and oriented to time HENMT: Head: Yes normal to inspection Neck: Carotids: no bruits Chest: Chest palpation & inspection: normal inspection of the chest Resp: Effort & Inspection: normal respiratory effort and able to speak in complete sentences Auscultation: clear to auscultation bilaterally Cardio: Rate: regular rate Heart sounds: S1 normal heart sound present and S2 normal heart sound present GI: Inspection: Yes normal to inspection Skin: General skin exam: no rashes or lesions noted Wounds: no wounds Neuro: General: oriented to person, oriented to place, oriented to time and CN's II-XI intact bilaterally Extrem: General: Yes normal to inspection, Yes full ROM and Yes no clubbing, cyanosis or edema Psych: Appearance: grossly normal and well kempt Speech and movement: Normal speech and movement present Affect: normal affect Progress Note: A&P Assessment and plan (1) Superior mesenteric vein thrombosis: Status: Acute Assessment and Plan: Doing well. Tolerating liquid p.o.. Advance as tolerated. If stable would transition to oral anticoagulants. Stable from my perspective. We will monitor with you. Thank you for allowing us to participate in his care. Fall Risk Details Current Medications: Current Medications Acetaminophen (Acetaminophen Supp 650 Mg Supp.Rect) 650 mg [place] Q6H PRN PRN Reason: Pain, Mild (Pain Scale 1-3) Heparin Sodium (Porcine) (Heparin Sodium,Porcine 5,000 Unit/Ml Vial) 4,600 unit 40 unit/kg (4600 unit) IVPUSH PROTOCOL BOLUS PRN; Protocol PRN Reason: 40 unit/kg - Heparin Protocol Heparin Sodium (Porcine) (Heparin Sodium,Porcine 5,000 Unit/Ml Vial) 9,200 unit 80 unit/kg (9200 unit) IVPUSH PROTOCOL BOLUS PRN; Protocol PRN Reason: 80 unit/kg - Heparin Protocol Heparin Sodium (Porcine) (Heparin Sodium,Porcine 5,000 Unit/Ml Vial) 9,200 unit IVPUSH PROTOCOL BOLUS PRN; Protocol PRN Reason: 80 unit/kg - Heparin Protocol Heparin Sodium/Sodium Chloride () 25,000 unit in 250 mls @ 20.657 mls/hr IVCONT .Q12H7M [facility]; Protocol Last Admin: 11/20/21 23:23 Dose: 14.01 units/kg/hr, 16.08 mls/hr Documented by: Lactated Ringer's (Lr) 1,000 mls @ 100 mls/hr IVCONT .Q10H [facility] Last Admin: 11/20/21 23:29 Dose: 100 mls/hr Documented by: Morphine Sulfate (Morphine Sulfate 4 Mg/Ml Cartridge) 4 mg IVPUSH Q4H PRN; Protocol PRN Reason: Pain, Severe (Pain Scale 7-10) Last Admin: 11/21/21 07:18 Dose: 4 mg Documented by: Ondansetron HCl (Ondansetron Hcl 4 Mg/2 Ml Vial) 4 mg IVPUSH Q8H PRN PRN Reason: Nausea and Vomiting Pharmacy Consult (Consult Rx Perform Med Rec) 1 each MISCELLANE ONCE PRN PRN Reason: Consult order Sodium Chloride (0.9 % Sodium Chloride Flush 3 Ml Syringe) [address] [facility] Last Admin: 11/21/21 07:08 Dose: Not Given Documented by: Time Spent With Patient Time: Total time spent is greater than 50% in coordination of care (as documented) at patient's floor/unit and/or counseling patient: Time with patient: 15 - 24 minutes Procedures Date of Service Date of Service: 11/21/21 Quality Stroke Does the patient have a stroke diagnosis?: No VTE Prior VTE?: No VTE Risk Level:: Medical - moderate - high VTE Device Contraindication: Treatment Not Indicated VTE Drug Contraindication: N/A - Med Ordered
[2021-11-21] MEDS: Heparin Sodium,Porcine 5,000 UNIT/ML VIAL 4600 UNIT IVPUSH (09:11)
[2021-11-21] MEDS: Lactated Ringers 1,000 ML 100 ML IVCONT (09:35)
[2021-11-21] MEDS: Heparin Sodium,Porcine/1/2NS 25,000 UNIT/250 ML IV.SOLN 18.37 UNIT IVCONT (14:10)
--- NOTE | 2021-11-21 14:55 | P.PNIM_ITS ---
Subjective Subjective Date of Service: 11/21/21 Interval History: Complaining of lower abdominal pain, tolerating diet no nausea, no vomiting, no diarrhea, has been ambulating in hallways, no acute events overnight. Review of Systems Review of Systems: Yes all other systems are reviewed and are negative Physical Exam Vital Signs: Vital Signs: Last Vital Signs Temp 98.3 F 11/21/21 11:10 Pulse 82 11/21/21 11:10 Resp 17 11/21/21 11:34 BP 167/93 H 11/21/21 11:10 Pulse Ox 98 11/21/21 11:10 BMI result Body Mass Index 35.2 Const: Other: General resting comfortably,no acute distress.? Neck? supple no JVD. CVS? regular rate rhythm, Respiratory lungs clear to auscultation, diminished at bases, no respiratory distress, no wheeze, no rhonchi. Gastrointestinal abdomen soft, no abdominal tenderness with palpation, obese,?no guarding , no rigidity. Extremities no edema. Neuro nonfocal , speech clear. Skin no rash Objective Data Active Medications Acetaminophen (Acetaminophen Supp 650 Mg Supp.Rect) 650 mg [place] Q6H PRN PRN Reason: Pain, Mild (Pain Scale 1-3) Heparin Sodium (Porcine) (Heparin Sodium,Porcine 5,000 Unit/Ml Vial) 4,600 unit 40 unit/kg (4600 unit) IVPUSH PROTOCOL BOLUS PRN; Protocol PRN Reason: 40 unit/kg - Heparin Protocol Last Admin: 11/21/21 09:11 Dose: 4,600 unit Documented by: ORVILLE Heparin Sodium (Porcine) (Heparin Sodium,Porcine 5,000 Unit/Ml Vial) 9,200 unit 80 unit/kg (9200 unit) IVPUSH PROTOCOL BOLUS PRN; Protocol PRN Reason: 80 unit/kg - Heparin Protocol Heparin Sodium (Porcine) (Heparin Sodium,Porcine 5,000 Unit/Ml Vial) 9,200 unit IVPUSH PROTOCOL BOLUS PRN; Protocol PRN Reason: 80 unit/kg - Heparin Protocol Heparin Sodium/Sodium Chloride () 25,000 unit in 250 mls @ 20.657 mls/hr IVCONT .Q12H7M [facility]; Protocol Last Admin: 11/21/21 14:10 Dose: 16.01 units/kg/hr, 18.37 mls/hr Documented by: HO.COTEMA Cosigned by: OMAR Morphine Sulfate (Morphine Sulfate 4 Mg/Ml Cartridge) 4 mg IVPUSH Q4H PRN; Protocol PRN Reason: Pain, Severe (Pain Scale 7-10) Last Admin: 11/21/21 11:34 Dose: 4 mg Documented by: ORVILLE Ondansetron HCl (Ondansetron Hcl 4 Mg/2 Ml Vial) 4 mg IVPUSH Q8H PRN PRN Reason: Nausea and Vomiting Pharmacy Consult (Consult Rx Perform Med Rec) 1 each MISCELLANE ONCE PRN PRN Reason: Consult order Sodium Chloride (0.9 % Sodium Chloride Flush 3 Ml Syringe) 3 ml IVFLUSH QSHIFT NELSON Last Admin: 11/21/21 14:12 Dose: Not Given Documented by: ORVILLE Non-Admin Reason: IV Running Labs CBC & Chem 7: 11/20/21 05:23 11/20/21 05:23 Labs: Laboratory Results - last 24 hr 11/21/21 08:17 PTT (Heparin Protocol) 44.0 L D Assessment and Plan (1) Superior mesenteric vein thrombosis: Status: Acute (2) Bipolar illness: Status: Acute (3) HTN (hypertension): Status: Acute (4) High cholesterol: Status: Acute Assessment and Plan: 51-year-old male with past medical history of hypertension hyperlipidemia, bipolar disorder, coronary artery disease as well as obesity presents to the hospital with complaints of abdominal pain found to have superior mesenteric vein thrombosis/portal vein thrombosis # SMV/portal vein thrombosis - no history of arrhythmia/AFib or a flutter, lactic acid normal Complaining of abdominal pain although no tenderness on palpation tolerating diet, will advance diet to full liquid - case discussed with Dr. 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
[2021-11-21] MEDS: Apixaban 5 MG TABLET 10 MG PO (20:55)
[2021-11-21] MEDS: 0.9 % Sodium Chloride Flush 3 ML SYRINGE IVFLUSH (21:01)
[2021-11-22 03:20] VITALS: BP 139/89; PULSE 83; RESP 18; TEMP 36.7; O2SAT 97
[2021-11-22] MEDS: Morphine Sulfate 4 MG/ML CARTRIDGE IVPUSH ×3 (03:34→20:28)
[2021-11-22 08:00] VITALS: BP 129/85; PULSE 81; RESP 18; TEMP 36.2; O2SAT 98
[2021-11-22] MEDS: Apixaban 5 MG TABLET 10 MG PO ×2 (09:24→20:27)
[2021-11-22] MEDS: 0.9 % Sodium Chloride Flush 3 ML SYRINGE IVFLUSH ×3 (09:24→20:28)
[2021-11-22 12:00] VITALS: BP 117/67; PULSE 97; RESP 20; TEMP 36.2; O2SAT 98
--- NOTE | 2021-11-22 13:30 | P.PNIM_ITS ---
Subjective Subjective Date of Service: 11/22/21 Interval History: complaining of abdominal pain, passing flatus no bowel movement yet, denies nausea vomiting, unable to describe if pain is worse after eating low residue diet. no acute events of fever chills or shortness of breath overnight . Review of Systems Review of Systems: Yes all other systems are reviewed and are negative Physical Exam Verdana 4l Vital Signs: Verdana 4d Verdana 4d Vital Signs: Verdana 4d Verdana 4Bd Last Vital Signs Verdana 4d Wood Milling Machine Operator New 4d Wood Milling Machine Operator New 4d Temp 97.2 F 11/22/21 12:00 Wood Milling Machine Operator New 4d Pulse 97 11/22/21 12:00 Wood Milling Machine Operator New 4d Resp 20 11/22/21 12:00 BP 117/67 11/22/21 12:00 Pulse Ox 98 11/22/21 12:00 BMI result Body Mass Index 35.2 General resting comfortably,no acute distress.? Neck? supple no JVD. CVS? regular rate rhythm, Respiratory lungs clear to auscultation, diminished at bases, no respiratory distress, no wheeze, no rhonchi. Gastrointestinal abdomen soft, Mild lower abdominal tenderness with palpation, obese,?no guarding , no rigidity. Extremities no edema. Neuro nonfocal , speech clear. Skin no rash Objective Data Active Medications Acetaminophen (Acetaminophen 325 Mg Tablet) 650 mg PO Q6H PRN PRN Reason: Pain, Mild (Pain Scale 1-3) Apixaban (Apixaban 5 Mg Tablet) 10 mg PO BID [facility] Stop: 11/28/21 09:01 Last Admin: 11/22/21 09:24 Dose: 10 mg Documented by: ANNE Morphine Sulfate (Morphine Sulfate 4 Mg/Ml Cartridge) 4 mg IVPUSH Q6H PRN; Protocol PRN Reason: Pain, Severe (Pain Scale 7-10) Ondansetron HCl (Ondansetron Hcl 4 Mg/2 Ml Vial) 4 mg IVPUSH Q8H PRN PRN Reason: Nausea and Vomiting Pharmacy Consult (Consult Rx Perform Med Rec) 1 each MISCELLANE ONCE PRN PRN Reason: Consult order Sodium Chloride (0.9 % Sodium Chloride Flush 3 Ml Syringe) [address] [facility] Last Admin: 11/22/21 09:24 Dose: 3 ml Documented by: HO.WILLISK Labs CBC & Chem 7: 11/20/21 05:23 11/20/21 05:23 Assessment and Plan (1) Superior mesenteric vein thrombosis: Status: Acute (2) Bipolar illness: Status: Acute (3) HTN (hypertension): Status: Acute (4) High cholesterol: Status: Acute Plan 51-year-old male with past medical history of hypertension hyperlipidemia, bipolar disorder, coronary artery disease as well as obesity presents to the hospital with complaints of abdominal pain found to have superior mesenteric vein thrombosis/portal vein thrombosis # SMV/portal vein thrombosis - no history of arrhythmia/AFib or a flutter, lactic acid normal Complaining of lower abdominal pain , passing flatus, no bowel movement, no nausea no vomiting,although tolerating diet,if pain continues will change back to full liquid diet - case discussed with Dr. Martínez he recommend to follow clinical course if patient has a normal bowel movement then he can be discharged, he recommend no further imaging studies s/p heparin, continue Eliquis 10 mg b.i.d. 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
[2021-11-22] MEDS: Milk of Magnesia 30 ML ORAL.SUSP PO (13:48)
[2021-11-22 15:12] VITALS: BP 126/75; PULSE 90; RESP 16; TEMP 36.2; O2SAT 96
--- NOTE | 2021-11-22 15:34 | MHC.CM.PN ---
CM MET W/PT PER HIS REQUEST ASKING TO COMPLETE A HCP, PT NAMED HIS S.O. NATHAN GREY [phone] HIS HEALTH CARE AGENT W/NO ALTERNATE AT THIS TIME, PT GIVEN EDUCATIONAL INFORMATION, ORIGINAL AND 2 COPIES, COPY UPLOADED TO Copier How To AND PLACED IN CHART. PT HAS HAD NO BM AT TIME OF THIS NOTE, ONCE BOWEL FX RETURNS PT IS OKAYED FOR D/C. D/C PLAN: HOME W/[facility] FOR MED MANAGEMENT, PT'S S.O. FOR TRANSPORT
[2021-11-22 19:14] VITALS: BP 147/80; PULSE 75; RESP 18; TEMP 36.7; O2SAT 98
[2021-11-22] MEDS: polyethylene glycoL 3350 17 GM POWD.PACK PO (20:27)
[2021-11-23] VITALS: BP 138/86; PULSE 83; RESP 18; TEMP 36.3; O2SAT 99
[2021-11-23] MEDS: Morphine Sulfate 4 MG/ML CARTRIDGE IVPUSH (03:56)
[2021-11-23 03:57] VITALS: BP 126/83; PULSE 94; RESP 18; TEMP 36.4; O2SAT 99
[2021-11-23 07:16] VITALS: BP 147/84; PULSE 80; RESP 18; TEMP 36.3; O2SAT 100
[2021-11-23] MEDS: Apixaban 5 MG TABLET 10 MG PO (09:09)
[2021-11-23] MEDS: 0.9 % Sodium Chloride Flush 3 ML SYRINGE IVFLUSH (09:10)
[2021-11-23] MEDS: polyethylene glycoL 3350 17 GM POWD.PACK PO (09:11)
[2021-11-23] MEDS: Milk of Magnesia 30 ML ORAL.SUSP PO (10:50)
[2021-11-23 11:35] VITALS: BP 140/88; PULSE 74; RESP 18; TEMP 36.4; O2SAT 98
--- NOTE | 2021-11-23 12:10 | MHC.CM.PN ---
PT DISCHARGING HOME TODAY W/[facility] FOR MED MANAGEMENT, [facility] [place] 2:[place]PM
--- NOTE | 2021-11-23 12:29 | P.DS_ITS ---
DS: Providers Provider Date of Service: 11/23/21 Date of admission: 11/19/21 13:28 Primary care physician: Unknown Physician Consults: 11/19/21 13:27 Consult to Vascular Surgery Routine Consulting Provider: Jovani Martínez Reason for consultation: SMV /portal vein thrombus Has provider been notified: No DS: Diagnosis Discharge Diagnosis (1) Superior mesenteric vein thrombosis: Status: Acute (2) Bipolar illness: Status: Acute (3) HTN (hypertension): Status: Acute (4) High cholesterol: Status: Acute DS: Summary Hospital Course Hospital Course: Chief Complaint: abd pain 51-year-old male with past medical history of coronary artery disease hypertension, obesity, hyperlipidemia, bipolar disorder, presents to the hospital with complaints of abdominal pain.? Patient reports diffuse worsening abdominal pain for the past 5 days.? Patient reports that the pain is worse with eating even drinking small amount of water. 10/10 constant, keeping him from sleep. non-radiating, distnded abdomen.? He denies any nausea or vomiting, reports bowel movements but very small and mostly constipated.? Denies having any urinary symptoms.? No lower extremity edema.? No shortness of breath or chest pain.? No weakness numbness or tingling. Vitals reviewed show no significant abnormality except for an elevated blood pressure, Labs reviewed generally unremarkable but show an increase creatinine of 1.27 with a baseline around 1.07, normal lactic acid.? Abdominal CT showedAbnormal proximal small bowel/jejunum with wall thickening and wall edema, dilatation, stranding of the small bowel mesentery fat and small amount of ascites. There is a filling defect in the distal SMV/portal splenic confluence suggestive of a thrombus.? Hospital course 51-year-old male with past medical history of hypertension hyperlipidemia, bipolar disorder, coronary artery disease as well as obesity presents to the hospital with complaints of abdominal pain found to have superior mesenteric vein thrombosis/portal vein thrombosis, with no prior history of arrhythmia/AFib or flutter, lactic acid normal, patient treated with IV heparin drip subsequently seen by Dr. Martínez from vascular surgery he recommend no surgical intervention, therefore will transition to Eliquis 10 mg b.i.d. for total 7 days followed by 5 mg by mouth b.i.d., patient is tolerating low residue diet, abdominal pain has improved, he had a bowel movement, his recommended to take Tylenol for pain control and MiraLax for constipation he has been discharged home with VNA services for medication management. ? In regard to history of coronary artery disease and hypertension patient is not on home medication he has recommended close outpatient follow-up with Cardiology. Time Spent with Patient Time attestation: Total time spent providing and/or coordinating discharge services: Discharge coordination time: Greater than 30 minutes Quality: Stroke Does the patient have a stroke diagnosis?: No Physical Exam Verdana 4l Vital Signs: Verdana 4d Verdana 4d Vital Signs: Verdana 4d Verdana 4Bd Last Vital Signs Verdana 4d Child And Family Counselor New 4d Child And Family Counselor New 4d Temp 97.5 F 11/23/21 11:35 Child And Family Counselor New 4d Pulse 74 11/23/21 11:35 Child And Family Counselor New 4d Resp 18 11/23/21 11:35 BP 140/88 H 11/23/21 11:35 Pulse Ox 98 11/23/21 11:35 BMI result Body Mass Index 35.2 Const: Other: General resting comfortably,no acute distress.? Neck? supple no JVD. CVS? regular rate rhythm, Respiratory lungs clear to auscultation, no respiratory distress, no wheeze, no rhonchi. Gastrointestinal abdomen soft, no abdominal tenderness ,obese,?no guarding , no rigidity. Extremities no edema. Neuro nonfocal , speech clear. Skin no rash Discharge Plan Discharge Patient Disposition: Home Health Service Discharge Diagnosis: superior mesenteric vein thrombosis portal vein thrombosis abdominal pain Referrals: [facility] [Outside] - 1 Day (JAIL, PLEASE CALL [phone] IF YOU HAVE NOT HEARD FROM A NURSE BY NOON THE DAY AFTER YOU ARE DISCHARGE. ) Physician,Unknown J [Primary Care Provider] - 1 Week Discharge Medications: New Eliquis 5 mg tablet 5 mg PO BID Qty: 90 0RF Rx Instructions: Take Eliquis 10 mg (two 5 mg tablets) twice daily for 4 more days then Take Eliquis 5 mg 1 tablet twice daily acetaminophen 325 mg Tablet 650 mg PO Q6H PRN (Reason: Pain, Mild (Pain Scale 1-3)) Qty: 30 0RF polyethylene glycol 3350 17 gram Powder In Packet 17 g PO DAILY Qty: 30 0RF Discharge Orders: Discharge Order (Routine); Ordered 11/23/21 Ordered By: Temi Samano Diet: low fat, low cholesterol Activity on Discharge: As tolerated Stand Alone Forms: Patient Portal Discharge page Care Plan Goals: portal vein and superior mesenteric vein thrombosis, abdominal pain likely due to bowel ischemia improved, follow low residue diet take Eliquis 10 mg twice daily followed by Eliquis 5 mg by mouth twice daily, drink fluids ambulate use Tylenol for pain It is important for you to take Eliquis twice daily as recommended Health Concerns: Hypertension / coronary artery disease/ hyperlipidemia / bipolar disorder, not on home medication, strongly recommend to follow up with primary care physician Plan of Treatment: outpatient follow-up with primary care physician and with vascular surgery Dr. Martínez in next 1-2 weeks call to make an appointment with Dr. Martínez Assessment: per discharge summary
[2021-11-23] MEDS: Acetaminophen 325 MG TABLET 650 MG PO (13:41)
== END 2021-11-23 14:30 | disposition home health service (06) | DRG 441 ==
LOC: HO.ED 09:31 → HO.EDOVER 14:14 → HO.S3 16:24
PROVIDERS: Admitting Provider Internal Medicine; Emergency Provider Student in an Organized Health Care Education/Training Program; Visit Provider Hospitalist
DX: I81 Portal vein thrombosis (principal); K55.059 Acute (reversible) ischemia of intestine, part and extent unspecified; I25.10 Atherosclerotic heart disease of native coronary artery without angina pectoris; I10 Essential (primary) hypertension; F31.9 Bipolar disorder, unspecified; E66.9 Obesity, unspecified; Z68.35 Body mass index [BMI] 35.0-35.9, adult; E78.5 Hyperlipidemia, unspecified; Z91.14 Patient's other noncompliance with medication regimen; Z20.822 Contact with and (suspected) exposure to COVID-19; Z79.899 Other long term (current) drug therapy
CPT/HCPCS: 36415; 74177; 80048; 80076; 81003; 83605; 83690; 84484; 85025; 85027; 85379; 85610; 85730; 87635; 93005; 93306; 96365; 96366; 96375; 99285; J2270; Q9967

== ENCOUNTER → 2021-12-07 13:50 | Outpatient (BNVA) | payer OTHER, SELFPAY | PROVIDERS: PCP Internal Medicine; Visit Provider Surgery Vascular Surgery | DX: K55.069 Acute infarction of intestine, part and extent unspecified (principal) | CPT/HCPCS: 99212 ==

== ENCOUNTER 2022-01-07 19:20 | Emergency (ER) | payer OTHER, SELFPAY ==
--- NOTE | ~2022-01-07 | XR_ITS ---
EXAMINATION: XR ABDOMEN KUB CLINICAL INDICATION: Abdominal pain. Constipation. COMPARISON: None TECHNIQUE: Frontal views of the abdomen. FINDINGS: Stool and air seen throughout colon to the rectum. No significant small bowel dilatation. No obstructive changes. No acute bony abnormality. Probable bone island overlying the left iliac crest. XR/XR KUB IMPRESSION: Unremarkable bowel gas pattern.
[2022-01-07 19:42] VITALS: BP 142/82; PULSE 77; RESP 20; TEMP 36.8; O2SAT 98; BMI 33.5
--- NOTE | 2022-01-07 20:37 | ED_ITS ---
HPI - Abdominal Pain General Chief Complaint: Abdominal Pain Stated Complaint: ABD PAIN,CONSTIPATION Source: patient Mode of arrival: ambulatory Limitations: no limitations History of Present Illness HPI narrative: 51-year-old male presents with lower abdominal pain that started earlier today. States to be constipated and has a history of a blood clot and is on anticoagulation. MD elicited complaint: abdominal pain Pertinent past history: constipation Onset (ago): hour(s) (Twelve) Pain Consistency: constant Location: LLQ Severity: moderate Pain scale (0-10): 6 Quality: aching and fullness Radiation: none Migration to: no migration Exacerbating factors: movement Relieving factors: nothing Associated symptoms: denies other symptoms Related Data Previous Rx's Medication Instructions Recorded acetaminophen 325 mg tablet 650 mg PO Q6H PRN #30 tab 11/23/21 polyethylene glycol 3350 17 gram 17 g PO DAILY #30 ea 11/23/21 oral powder packet apixaban 5 mg tablet (Eliquis) 5 mg PO BID #90 tab 01/02/22 polyethylene glycol 3350 17 17 g PO BID PRN #850 g 01/07/22 gram/dose oral powder (Miralax) Allergies Allergy/AdvReac Type Severity Reaction Status Date / Time No Known Allergies Allergy Verified 12/07/21 13:53 [No Known Allergies*] Review of Systems Review of Systems Constitutional: No Fever, No Chills ENT/Mouth: No Ear Pain, No Hoarseness, No sore throat Eyes: No Eye Pain, No Swelling, No Redness, No Foreign Body Cardiovascular: No Chest Pain, No SOB Respiratory: No Cough, No Dyspnea Gastrointestinal: No Nausea, No Vomiting, No Diarrhea, positive abdominal Pain, positive constipation Genitourinary: No Dysuria, No Hematuria Musculoskeletal: No joint pain, No Myalgias, No Joint Swelling Skin: No Skin lacerations, No rash Neuro: No Weakness, No Numbness, No Paresthesias, No Loss of Consciousness, No Dizziness, No Headache Psych: No Anxiety/Panic, No Depression Heme/Lymph: no easy bruising, no Lymphadenopathy Endocrine: No Polyuria, No Polydipsia Yes all other systems are reviewed and are negative [facility] Past Medical History Attestation statement: The following information was validated with the patient. Source: old records reviewed Medical History Bipolar illness CAD (coronary artery disease) Class 2 severe obesity with body mass index (BMI) of 35 to 39.9 with serious co morbidity High cholesterol HTN (hypertension) Surgical History Status post excision of lipoma Family History Family History Father Cancer Mother No problems noted. Family/Other FH: mental illness Mental health disorder Brother No problems noted. Son In good health Daughter In good health Substance use disorder Social History Social History Household Members: Significant Other Housing: House Do you presently have visiting nurse or other home services: No Alcohol intake: never Patient Tobacco Use Status: Never used Tobacco e-Cigarette/Vaping Use: Never Used Second Hand Smoke Exposure: No Advance Directives: No Advance Directives Information Provided: Yes service: No Current occupational status: disabled Cognitive needs: No Hearing needs: No Vision needs: No Physical Exam ED Vital Signs: Vital Signs - 24 hr 01/07/22 19:42 01/07/22 21:03 01/07/22 23:48 Temperature 98.3 F 98.4 F 98.4 F Pulse Rate 77 82 80 Respiratory Rate 20 18 18 Blood Pressure 142/82 H 140/85 H 136/72 Pulse Oximetry 98 96 98 BMI result Body Mass Index 33.5 Appearance: Alert. Oriented X3. No acute distress. Eyes: Pupils equal, round and reactive to light. ENT: Pharynx normal. Neck: Normal inspection. Neck supple. CVS: Normal heart rate and rhythm. Pulses normal. Respiratory: No respiratory distress. Breath sounds normal. Abdomen: Soft and nontender. Obese. Skin: Skin warm and dry. Normal skin color. Normal skin turgor. Extremities: No lower extremity edema. Gait well-balanced will coordinate. Neuro: No motor deficit. No sensory deficit. Cranial nerves 2-12 intact. Course Course Course Narrative: 51-year-old male presents with a few hours of abdominal pain and constipation. Patient is afebrile, appears nontoxic, vital signs are stable and within normal limits. Physical exam is negative for acute findings. No abdominal tenderness, rebound or rigidity. Will order KUB. KUB shows some moderate stool burden. Will order Fleet. Fleet ineffective. Order for soapsuds enema. Patient produce large bowel movement. Plan of care is to discharge home, patient was encouraged to take the MiraLax twice a day. Pain is 2/10 from 10. Patient verbalized understanding of and agrees to plan of care to discharge home. Verbalized understanding of signs and symptoms indicating need for emergent intervention MDM - Abdominal Pain Differential Diagnosis Differential diagnosis: Likely abdominal pain and constipation Medical Records Attestation: I reviewed the patient's medical records. Lab Data Attestation: I reviewed the patient's lab results. Result diagrams: 01/07/22 21:09 01/07/22 21:09 Labs: Lab Results 01/07/22 01/07/22 01/07/22 Range/Units 21:09 21:09 21:09 WBC 8.6 (4.8-10.8) X10*3/uL RBC 5.59 (4.60-5.80) X10*6/uL Hgb 15.0 (14.0-18.0) g/dl Hct 46.9 (42.0-52.0) % MCV 83.9 (80.0-98.0) fL MCH 26.8 L (27.0-33.0) pg MCHC 32.0 (31.0-36.0) g/dl RDW 14.0 (11.0-16.0) % Plt Count 169 (160-400) X10*3/uL MPV 11.1 (9.4-12.4) fL Immature Gran % (Auto) 0.3 (0.0-0.4) % Neut % (Auto) 88.6 H (45-73) % Lymph % (Auto) 6.6 L (20-40) % Victoria % (Auto) 4.3 (2-11) % Eos % (Auto) 0.1 (0-4) % Baso % (Auto) 0.1 (0-2) % Lymph # (Auto) 0.6 L (1.2-4.9) X10*3/uL Victoria # (Auto) 0.4 (0.1-1.2) X10*3/uL Eos # (Auto) 0.0 (0.0-0.4) X10*3/uL Baso # (Auto) 0.0 (0.0-0.2) X10*3/uL Abs Immat Gran (auto) 0.03 (0.00-0.03) X10*3/uL Absolute Neuts (auto) 7.6 (2.0-8.3) x10*3/uL Absolute Nucleated RBC 0.000 (0.0-0.012) X10*3/uL Nucleated RBC % (auto) 0.0 (0.0-0.2) /100WBC PT 14.0 H (9.9-13.0) SEC INR 1.2 H (0.9-1.1) Sodium (135-145) mmol/L Potassium (3.3-5.1) mmol/L Chloride (96-108) mmol/L Carbon Dioxide (22-29) mmol/L Anion Gap (12-20) BUN (9-16) mg/dL Creatinine (0.5-1.4) mg/dL Estim Creat Clear Calc Estimated GFR Random Glucose (60-115) mg/dL Calcium (8.4-10.2) mg/dL Total Bilirubin 0.6 (0.0-1.0) mg/dL Direct Bilirubin 0.3 (0.0-0.5) mg/dL AST 26 (5-37) U/L ALT 47 H (0-40) U/L Alkaline Phosphatase 102 D (39-117) U/L Total Protein 6.7 (6.5-8.0) g/dL Albumin 4.0 (3.5-5.0) g/dL Lipase 26 (8-78) U/L Urine Color Urine Appearance Urine pH (5.0-8.0) Ur Specific [place] (1.005-1.025) Urine Protein (NEG-TRACE) MG/DL Urine Glucose (UA) (NEG) MG/DL Urine Ketones (NEG) MG/DL Urine Blood (NEG) Urine Nitrite (NEG) Ur Leukocyte Esterase (NEG) 01/07/22 01/07/22 Range/Units 21:09 21:09 WBC (4.8-10.8) X10*3/uL RBC (4.60-5.80) X10*6/uL Hgb (14.0-18.0) g/dl Hct (42.0-52.0) % MCV (80.0-98.0) fL MCH (27.0-33.0) pg MCHC (31.0-36.0) g/dl RDW (11.0-16.0) % Plt Count (160-400) X10*3/uL MPV (9.4-12.4) fL Immature Gran % (Auto) (0.0-0.4) % Neut % (Auto) (45-73) % Lymph % (Auto) (20-40) % Victoria % (Auto) (2-11) % Eos % (Auto) (0-4) % Baso % (Auto) (0-2) % Lymph # (Auto) (1.2-4.9) X10*3/uL Victoria # (Auto) (0.1-1.2) X10*3/uL Eos # (Auto) (0.0-0.4) X10*3/uL Baso # (Auto) (0.0-0.2) X10*3/uL Abs Immat Gran (auto) (0.00-0.03) X10*3/uL Absolute Neuts (auto) (2.0-8.3) x10*3/uL Absolute Nucleated RBC (0.0-0.012) X10*3/uL Nucleated RBC % (auto) (0.0-0.2) /100WBC PT (9.9-13.0) SEC INR (0.9-1.1) Sodium 139 (135-145) mmol/L Potassium 4.3 (3.3-5.1) mmol/L Chloride 106 (96-108) mmol/L Carbon Dioxide 24 (22-29) mmol/L Anion Gap 13 (12-20) BUN 17 H D (9-16) mg/dL Creatinine 0.97 (0.5-1.4) mg/dL Estim Creat Clear Calc 113.0 Estimated GFR > 60 Random Glucose 120 H (60-115) mg/dL Calcium 9.2 (8.4-10.2) mg/dL Total Bilirubin 0.6 (0.0-1.0) mg/dL Direct Bilirubin (0.0-0.5) mg/dL AST 24 (5-37) U/L ALT 47 H (0-40) U/L Alkaline Phosphatase 100 (39-117) U/L Total Protein 6.7 (6.5-8.0) g/dL Albumin 4.0 (3.5-5.0) g/dL Lipase (8-78) U/L Urine Color YELLOW Urine Appearance CLEAR Urine pH 6.0 (5.0-8.0) Ur Specific [place] >= 1.030 H (1.005-1.025) Urine Protein NEG (NEG-TRACE) MG/DL Urine Glucose (UA) NEG (NEG) MG/DL Urine Ketones NEG (NEG) MG/DL Urine Blood NEG (NEG) Urine Nitrite NEG (NEG) Ur Leukocyte Esterase NEG (NEG) Imaging Data kub: Attestation: I personally reviewed and interpreted this imaging study as follows: Radiologist's impression: EXAMINATION: XR ABDOMEN KUB CLINICAL INDICATION: Abdominal pain. Constipation.? COMPARISON: None? TECHNIQUE: Frontal views of the abdomen. FINDINGS: Stool and air seen throughout colon to the rectum. No significant small bowel dilatation. No obstructive changes. No acute bony abnormality. Probable bone island overlying the left iliac crest. XR/XR KUB IMPRESSION: Unremarkable bowel gas pattern. ? Discharge Plan Discharge Clinical Impression: Abdominal pain, Constipation Patient Disposition: Home, Self-Care Instructions: Constipation (ED), Abdominal Pain (ED) Additional Instructions: You were evaluated for abdominal pain with reports constipation. We gave you a soapsuds enema with large results. Please use MiraLax daily. Follow-up with primary care physician as you may need a gastroenterology referral for constipation. Thank you for choosing this emergency department for evaluation. Please follow-up with primary care physician as needed. Return to the emergency department for any new, concerning, or worsening symptoms. Prescriptions: New polyethylene glycol 3350 [Miralax] 17 gram/dose powder 17 g PO BID PRN (Reason: constipation) Qty: 850 0RF No Action Eliquis 5 mg tablet 5 mg PO BID Qty: 90 1RF Rx Instructions: Take Eliquis 10 mg (two 5 mg tablets) twice daily for 4 more days then Take Eliquis 5 mg 1 tablet twice daily acetaminophen 325 mg Tablet 650 mg PO Q6H PRN (Reason: Pain, Mild (Pain Scale 1-3)) Qty: 30 0RF polyethylene glycol 3350 17 gram Powder In Packet 17 g PO DAILY Qty: 30 0RF Interventions: ED Discharge Assessment Last Done: 01/07/22 23:47 Discharge Date/Time: 01/07/22 23:49
[2022-01-07 21:03] VITALS: BP 140/85; PULSE 82; RESP 18; TEMP 36.9; O2SAT 96
[2022-01-07 21:18] LABS: MANUAL DIFF FLAG NO
[2022-01-07 21:20] LABS: Appearance Urine CLEAR; Basophils Percent Auto 0.1 % (0-2); Color Urine YELLOW; Eosinophils Percent Auto 0.1 % (0-4); Glucose Urine UA NEG (NEG); Hematocrit 46.9 % (42.0-52.0); Imm Gran Abs Auto 0.03 X10*3/uL (0.00-0.03); Imm Gran Pct Auto 0.3 % (0.0-0.4); Leukocyte Esterase Urine NEG (NEG); Lymphocytes Absolute Auto 0.6 X10*3/uL (1.2-4.9); Lymphocytes Percent Auto 6.6 % (20-40); Mean Corpuscular Hemoglobin 26.8 pg (27.0-33.0); Mean Corpuscular Volume 83.9 fL (80.0-98.0); Mean Platelet Volume 11.1 fL (9.4-12.4); Monocytes Absolute Auto 0.4 X10*3/uL (0.1-1.2); Monocytes Percent Auto 4.3 % (2-11); Neutrophils Absolute Auto 7.6 x10*3/uL (2.0-8.3); Neutrophils Percent Auto 88.6 % (45-73); Nitrite Urine NEG (NEG); Platelet Count 169 X10*3/uL (160-400); Red Blood Count 5.59 X10*6/uL (4.60-5.80); Specific Gravity - Urine >= 1.030 (1.005-1.025); Urine Blood NEG (NEG); Urine Ketones NEG (NEG); Urine Protein NEG (NEG-TRACE); White Blood Count 8.6 X10*3/uL (4.8-10.8)
[2022-01-07 21:27] LABS: INTERNATIONAL NORM RATIO 1.2 (0.9-1.1)
[2022-01-07 21:36] LABS: Alanine Aminotransferase 47 U/L (0-40); Alkaline Phosphatase 100 U/L (39-117); Anion Gap 13 (12-20); Aspartate Amino Transferase 24 U/L (5-37); Bilirubin Total 0.6 mg/dL (0.0-1.0); Blood Urea Nitrogen 17 mg/dL (9-16); Calcium 9.2 mg/dL (8.4-10.2); Carbon Dioxide 24 mmol/L (22-29); Chloride 106 mmol/L (96-108); Estimated Glomerular Filt Rate > 60; Glucose Random 120 mg/dL (60-115); Potassium 4.3 mmol/L (3.3-5.1); Sodium 139 mmol/L (135-145); Total Protein 6.7 g/dL (6.5-8.0)
[2022-01-07] MEDS: Sodium Phosphate,Mono-Dibasic 133 ML ENEMA PR (21:40)
[2022-01-07 21:46] LABS: Alanine Aminotransferase 47 U/L (0-40); Alkaline Phosphatase 102 U/L (39-117); Aspartate Amino Transferase 26 U/L (5-37); Bilirubin Direct 0.3 mg/dL (0.0-0.5); Bilirubin Total 0.6 mg/dL (0.0-1.0); Lipase 26 U/L (8-78); Total Protein 6.7 g/dL (6.5-8.0)
--- NOTE | 2022-01-07 23:08 | PC.NURSE ---
Pt received fleet enema, reports having small marble sized BM. Per [employer] orders pt received soap suds enema at this time and tolerated well. Will continue to monitor.
[2022-01-07 23:48] VITALS: BP 136/72; PULSE 80; RESP 18; TEMP 36.9; O2SAT 98
== END 2022-01-07 23:49 | disposition home or self-care (01) ==
PROVIDERS: Nurse Practitioner Family; Emergency Provider Emergency Medicine Emergency Medical Services
DX: K59.00 Constipation, unspecified (principal); R10.32 Left lower quadrant pain; Z79.899 Other long term (current) drug therapy
CPT/HCPCS: 36415; 74018; 80053; 80076; 81003; 82248; 83690; 85025; 85610; 99284

== ENCOUNTER → 2022-02-20 13:49 | Outpatient (BNVA) | payer OTHER, SELFPAY | PROVIDERS: PCP Internal Medicine; Referring Provider Internal Medicine; Visit Provider Physician Assistant | DX: Z12.11 Encounter for screening for malignant neoplasm of colon (principal); Z79.01 Long term (current) use of anticoagulants; Z78.9 Other specified health status | CPT/HCPCS: 99202 ==

== ENCOUNTER 2022-03-12 08:47 | Outpatient (REF) | payer OTHER, SELFPAY ==
--- NOTE | ~2022-03-12 | CT_ITS ---
EXAMINATION: CT ANGIOGRAM ABDOMEN AND PELVIS CLINICAL INFORMATION: Acute infarction of intestine. COMPARISON: CT abdomen 04/19/2022. TECHNIQUE: Multiple axial images were obtained through the abdomen and pelvis following the administration of 80 mL of Omnipaque 350 intravenous contrast. 3D POSTPROCESSING: Multiple 3-D angiographic images were processed from the initial data set by the instrument technologist at the modality workstation under concurrent physician supervision. This CT examination was performed using dose optimization techniques as appropriate, variously including the following: *Automated exposure control *Adjustment of mA and/or kV according to patient size (this includes techniques or standardized protocols for targeted exams where dose is matched to indication/reason for exam; i.e. extremities or head) *Use of iterative reconstruction technique DLP: 346 mGy-cm FINDINGS: The abdominal aorta is normal in caliber. No significant atherosclerotic disease. The celiac artery is patent. The superior mesenteric artery is patent. The inferior mesenteric artery is patent. The single right renal artery is patent. The single left renal artery is patent. The exam was performed in the arterial phase. The portal vein is not evaluable for intraluminal thrombus. The previously seen stranding around the portal vein has resolved and the vein appears normal in caliber. There are prominent collateral vessels in the greater omentum which raises the possibility of persistent thrombosis or stenosis of the portal vein. The lung bases are clear. The liver is normal in the arterial phase. Gallbladder is normal. The spleen is normal. The adrenal glands and kidneys are unremarkable. The urinary bladder is decompressed. The prostate is mildly enlarged measuring 4.9 x 4.2 cm. The stomach is unremarkable. The small bowel is normal in caliber. No evidence of obstruction. The appendix is normal. There is mild diverticulosis of the colon. No adenopathy degenerative changes are seen in the spine, most severe at L5-S1. No suspicious osseous lesions. CT/CT angio abdomen pelvis IMPRESSION: The exam was performed in the arterial phase which limits evaluation of the portal vein. Cannot exclude intraluminal thrombus or stenosis. There are prominent collateral vessels in the greater omentum which raises the possibility of persistent thrombus or stenosis in the portal vein. The spleen is not enlarged. Consider further evaluation with MRI of the abdomen without and with contrast and/or duplex abdominal ultrasound. The abdominal aorta and visceral arteries appear normal.
[2022-03-12 09:40] LABS: Blood Urea Nitrogen 14 mg/dL (9-16); Estimated Glomerular Filt Rate > 60
[2022-03-12] MEDS: iohexoL 350 MG/ML 100 ML INFUS..BTL 80 ML IV (10:15)
== END 2022-03-12 08:48 | disposition home or self-care (01) ==
LOC: HO.CT 08:47
PROVIDERS: Visit Provider Surgery Vascular Surgery
DX: K55.069 Acute infarction of intestine, part and extent unspecified (principal)
CPT/HCPCS: 36415; 74174; 82565; 84520; Q9967

== ENCOUNTER → 2022-03-20 10:52 | Outpatient (BNVA) | payer OTHER, SELFPAY | PROVIDERS: PCP Family Medicine; Visit Provider Surgery Vascular Surgery | DX: K55.069 Acute infarction of intestine, part and extent unspecified (principal) | CPT/HCPCS: 99212 ==

== ENCOUNTER → 2022-07-17 08:23 | Outpatient (BNVA) | payer OTHER, SELFPAY | PROVIDERS: PCP Internal Medicine; Referring Provider Internal Medicine; Visit Provider Internal Medicine | DX: R74.01 Elevation of levels of liver transaminase levels (principal); K55.069 Acute infarction of intestine, part and extent unspecified; F19.11 Other psychoactive substance abuse, in remission | CPT/HCPCS: 99212 ==

== ENCOUNTER 2022-08-07 11:30 | Outpatient (REF) | payer OTHER, SELFPAY ==
[2022-08-07 12:46] LABS: Estimated Average Glucose 108 mg/dL; Hemoglobin A1C 151.7393 umol/L; Hemoglobin A1c % 5.4 %
[2022-08-07 12:51] LABS: Alanine Aminotransferase 37 U/L (0-40); Albumin Level 4.4 g/dL (3.5-5.0); Alkaline Phosphatase 98 U/L (39-117); Aspartate Amino Transferase 22 U/L (5-37); Bilirubin Direct 0.2 mg/dL (0.0-0.5); Bilirubin Total 0.5 mg/dL (0.0-1.0); Cholesterol 159 mg/dL; HDL Cholesterol 47 mg/dL; LDL Cholesterol Calculated 96 mg/dl; Total Protein 7.1 g/dL (6.5-8.0); Triglycerides 81 mg/dL
[2022-08-08 04:40] LABS: Hepatitis A Antibody IgG REACTIVE (Nonreactive); ~Hepatitis A Antibody IgG 11.66 S/CO (0.00-0.99)
[2022-08-08 04:47] LABS: HBS Num1 2.05 mIU/mL (0-7.99); HBc Num1 0.06 S/CO (0.00-0.79); HBsAGNum1 0.19 S/CO (0.00-0.99); Hepatitis B Core Antibody Nonreactive (Nonreactive); Hepatitis B Surface Antigen Negative (Negative); ~HepC Num1 0.06 S/CO (0.00-0.79); ~Hepatitis B Surface Antibody NONREACTIVE (Nonreactive); ~Hepatitis C Antibody Nonreactive (Nonreactive)
[2022-08-10 00:07] LABS: TS Negative Control Passed; TS Panel A 0; TS Panel B 0; TS Positive Control Passed; TSpotTB Negative (Negative)
== END 2022-08-07 11:31 | disposition home or self-care (01) ==
LOC: HO.LAB 11:30
PROVIDERS: Internal Medicine; PCP Internal Medicine; Visit Provider Internal Medicine
DX: Z11.9 Encounter for screening for infectious and parasitic diseases, unspecified (principal); E78.00 Pure hypercholesterolemia, unspecified; R74.01 Elevation of levels of liver transaminase levels; F19.11 Other psychoactive substance abuse, in remission
CPT/HCPCS: 36415; 80061; 80076; 83036; 86481; 86704; 86706; 86708; 86803; 87340

== ENCOUNTER → 2022-08-28 08:05 | Outpatient (BNVA) | payer OTHER, SELFPAY | PROVIDERS: PCP Internal Medicine; Visit Provider Nurse Practitioner Family | DX: G47.30 Sleep apnea, unspecified (principal); R06.83 Snoring; R40.0 Somnolence; E66.01 Morbid (severe) obesity due to excess calories; Z68.36 Body mass index [BMI] 36.0-36.9, adult | CPT/HCPCS: 99202 ==

== ENCOUNTER → 2022-10-02 10:00 | Outpatient (REF) | payer OTHER, SELFPAY | LOC: HO.SL 10:00 | PROVIDERS: PCP Internal Medicine; Visit Provider Nurse Practitioner Family | DX: G47.33 Obstructive sleep apnea (adult) (pediatric) (principal); R06.83 Snoring; R40.0 Somnolence | CPT/HCPCS: 95806 ==

== ENCOUNTER 2023-04-19 09:52 | Outpatient (REF) | payer OTHER, SELFPAY ==
[2023-04-22 13:09] LABS: TS Negative Control Passed; TS Panel A 0; TS Panel B 1; TS Positive Control Passed; TSpotTB Negative (Negative)
== END 2023-04-19 09:53 | disposition home or self-care (01) ==
LOC: HO.LAB 09:52
PROVIDERS: PCP Internal Medicine; Visit Provider Internal Medicine
DX: Z11.1 Encounter for screening for respiratory tuberculosis (principal)
CPT/HCPCS: 36415; 86481

== ENCOUNTER 2023-07-23 14:44 | Outpatient (AMB) | payer OTHER, SELFPAY ==
[2023-07-23 14:47] VITALS: BP 122/86; PULSE 74; O2SAT 100; BMI 37.7
--- NOTE | 2023-07-23 14:47 | A.OFFPC_ITS ---
Vital Signs 07/23/23 14:47 Height 5 ft 10 in Weight 263 lb BMI 37.7 BP 122/86 Blood Pressure Location Lt brachial Position Sitting Pulse 74 Pulse Source Pulse Oximeter Temp Source Skin Pulse Oximetry (%) 100 Oxygen Delivery Method Room Air Intake Visit Reasons: PE Intake Note: Patient is here today for a physical. Allergies No Known Allergies [No Known Allergies*] Allergy (Verified 07/23/23 14:59) Medication List - Last Reconciled 07/23/23 by OPAL Orellana acetaminophen 650 mg (2 x 325 mg) PO Q6H PRN apixaban (Eliquis) 5 mg PO BID aspirin 81 mg PO DAILY atorvastatin 80 mg PO DAILY docusate sodium 100 mg PO DAILY olanzapine 2.5 mg PO DAILY polyethylene glycol 3350 (Miralax) 17 grams PO BID PRN sertraline 50 mg PO DAILY Tobacco use date assessed: 07/23/23 Dental Screening Dental Screen Date: 07/23/23 Did you have a dental visit in the last 12 months?: No Did you have a dental problem in the last 6 months where you did not have access to dental care?: No HPI PE HPI Details Patient is a 53-year-old male who presents today for physical exam. Patient of Dr. Porter. Medical history significant for obesity, history of superior mesenteric vein thrombosis-patient reports that he has stop taking Eliquis long time ago-he has referral to see Hematology-will follow-up on this, poor historian, noncompliance, hypercholesterolemia, and history of nicotine dependence-patient reports that he quit couple months ago-will refer for low- dose chest CT scan. We also discussed patient's need for colon cancer screening. Patient denies shortness of breath or chest pain. Reports intermittent dizziness sensation. Up-to-date with immunizations. Patient is due for blood work. Will refer for eye exam. Discussed patient's need for colon cancer screening. [facility] Medical History CAD (coronary artery disease) Class 2 severe obesity with body mass index (BMI) of 35 to 39.9 with serious comorbidity Bipolar illness High cholesterol HTN (hypertension) Surgical History Hx of heart artery stent Status post excision of lipoma Family History Father Cancer Mother No problems noted. Family/Other FH: mental illness Mental health disorder Brother No problems noted. Son In good health Daughter In good health Substance use disorder Social History Household Members: Significant Other Housing: House Do you presently have visiting nurse or other home services: No Alcohol intake: never Patient Tobacco Use Status: Never used Tobacco e-Cigarette/Vaping Use: Never Used Second Hand Smoke Exposure: No service: No Current occupational status: disabled Cognitive needs: No Hearing needs: No Vision needs: No Questionnaire PHQ-9 Over the last 2 weeks, how often have you been bothered by any of the following problems? 1. Little interest or pleasure in doing things: several days 2. Feeling down, depressed, or hopeless: several days 3. Trouble falling or staying asleep, or sleeping too much: not at all 4. Feeling tired or having little energy: not at all 5. Poor appetite or overeating: more than half the days (over eating ) 6. Feeling bad about yourself - or that you are a failure or have let yourself or your family down: several days 7. Trouble concentrating on things, such as reading the newspaper or watching television: nearly every day 8. Moving or speaking so slowly that other people could have noticed. Or the opposite - being so fidgety or restless that you have been moving around a lot more than usual: not at all 9. Thoughts that you would be better off or of hurting yourself in some way: not at all Total score: 8 Depression Screening Interpretation: Negative 31824 - PHQ-9 Billing: Yes Source: Developed by Drs. Blair Mercado, Melissa Driscoll, Jackson Heart and colleagues, with an educational bill from [employer]. Thrive Questionnaire Date Thrive assessed: 07/23/23 I am a: Patient What is your living situation today?: I have a steady place to live Within the past 12 months, did the food you bought not last and you didn't have the money to get more?: Never true Within the past 12 months, did you worry whether your food would run out before you got money to buy more?: Never true Do you have trouble paying for medicines?: No Do you have trouble getting transportation to medical appointments?: No Do you have trouble paying your heating and electricity bill?: No Do you have trouble taking care of your child, family member or friend?: No Do you have trouble with day-to-day activities such as bathing, preparing meals, shopping, managing finances, etc.?: No Are you currently unemployed and looking for a job?: No Are you interested in more education?: No Currently or been in a relationship where the following occur: no concerns reported AUDIT C Alcohol Use Questionnaire (AUDIT-C) 1. How often do you have a drink containing alcohol?: Never Total Score: 0 Score Reviewed/Action Taken: No TANO-7 AMB Questionnaire TANO-7 Date TANO - 7 assessed: 07/23/23 Feeling nervous, anxious, or on edge: 0 = Not at all Not being able to stop or control worryin = Not at all Worrying too much about different things: 0 = Not at all Trouble relaxin = Not at all Being so restless that it is hard to sit still: 0 = Not at all Becoming easily annoyed or irritable: 0 = Not at all Feeling afraid as if something awful might happen: 0 = Not at all Total TANO-7 score (0-4 normal; 5-9 mild; 10-14 moderate; 15-21 severe): 0 Source: Developed by Drs. Blair Mercado, Melissa Driscoll, Jackson [employer] and colleagues, with an educational bill from [employer]. TANO-7 Assessment Billing ATNO-7 Assessment Tool: TANO-7 Assessment 77496 Review of Systems Const Denies body aches, Denies chills, Denies fever(s) and Denies headache(s) Eyes Denies change in vision ENT Reports dizziness (Intermittent), Denies otalgia, Denies headache(s), Denies nasal discharge, Denies sinus pain and Denies sore throat Card Denies chest pain, Denies edema, Denies lightheadedness and Denies dyspnea Resp Denies cough, Denies dyspnea and Denies wheezing GI Denies constipation, Denies diarrhea, Denies nausea and Denies vomiting Denies dysuria Musc Denies myalgias Skin/Breast Denies rash Neuro Reports dizziness (Intermittent) and Denies headache(s) Aller/Immun Denies wheezing Physical exam (Primary Care) Vital Signs: Last Vital Signs Pulse 74 07/23/23 14:47 BP 122/86 07/23/23 14:47 Pulse Ox 100 07/23/23 14:47 Oxygen Delivery Method Room Air 07/23/23 14:47 BMI result Body Mass Index 37.7 Tobacco/Smoking Status: Tobacco use Status Tobacco use date assessed 07/23/23 07/23/23 14:49 Patient Tobacco Use Status Never used Tobacco 07/23/23 14:49 e-Cigarette/Vaping Use Never Used 07/23/23 14:49 PHQ-9: PHQ-9 Score PHQ-9: Total score 8 07/23/23 14:58 Depression Screening Interpretation: Negative Thrive Assessment: Date of Thrive Assessment Date Thrive assessed 07/23/23 07/23/23 14:49 Currently or been in a relationship where the following occur: no concerns reported Const General: cooperative and no acute distress Orientation/consciousness: patient oriented x3 HENMT Head: Yes normocephalic and Yes atraumatic Ears: TM's normal bilaterally Face and sinus: Yes sinuses nontender Mouth: oropharynx normal and moist mucous membranes Throat: Yes posterior oropharynx normal Eyes General: appearance normal, both eyes and all related structures Pupils: Equal, round and reactive pupils present EOM: EOMs intact bilaterally Neck Neck: Yes normal visual inspection, Yes full ROM and Yes no lymphadenopathy Thyroid: Thyroid normal Resp Effort & Inspection: normal respiratory effort and able to speak in complete sentences Auscultation: clear to auscultation bilaterally, no crackles, no rales, no rhonchi and no wheezes Cardio Rate: regular rate Rhythm: regular rhythm Heart sounds: S1 normal heart sound present, S2 normal heart sound present and no murmurs GI Palpation (GI): Soft to palpation, not firm, nontender, no guarding, not rigid and no hepatosplenomegaly Auscultation: normal bowel sounds Skin General skin exam: no rashes or lesions noted Neuro General: patient oriented x3 Cranial nerves: Yes Equal, round and reactive pupils present Gait exam (Neuro): Normal gait present Extrem General: Yes full ROM and No edema Assessment and Plan Assessment & Plan (1) History of nicotine dependence: Code(s): Z87.891 - Personal history of nicotine dependence Plan: Will refer for low-dose chest CT scan (2) Screening for prostate cancer: Code(s): Z12.5 - Encounter for screening for malignant neoplasm of prostate (3) Eye exam, routine: Code(s): Z01.00 - Encounter for examination of eyes and vision without abnormal findings (4) Screening for colon cancer: Code(s): Z12.11 - Encounter for screening for malignant neoplasm of colon (5) Hypercholesterolemia: Code(s): E78.00 - Pure hypercholesterolemia, unspecified Plan: Continue atorvastatin Low-cholesterol diet and weight loss (6) Superior mesenteric vein thrombosis: Code(s): K55.069 - Acute infarction of intestine, part and extent unspecified Plan: Will follow-up on hematology referral Patient reports his stopped taking Eliquis long time ago (7) Annual physical exam: Code(s): Z00.00 - Encounter for general adult medical examination without abnormal findings (8) Class 2 severe obesity with body mass index (BMI) of 35 to 39.9 with serious comorbidity: Code(s): E66.01 - Morbid (severe) obesity due to excess calories Plan: Healthy food choices and exercise as tolerated (9) Bipolar illness: Code(s): F31.9 - Bipolar disorder, unspecified Plan: Continue current treatment Continue to follow-up with counseling Plan Follow-up with PCP in 4 months or sooner as needed Orders: Orders Lipid Panel Today E78.00 - Pure hypercholesterolemia, unspecified Complete Blood Count Auto Diff Today E78.00 - Pure hypercholesterolemia, unspecified Prostate Specific Antigen Today Z12.5 - Encounter for screening for malignant neoplasm of prostate TSH reflex Free T4 Today E78.00 - Pure hypercholesterolemia, unspecified Comprehensive [place]. Panel Fast Today E78.00 - Pure hypercholesterolemia, unspecified Referrals Gastroenterology Referral Z12.11 - Encounter for screening for malignant neoplasm of colon Ophthalmology Referral Z01.00 - Encounter for examination of eyes and vision without abnormal findings Thoracic Surgery Referral Z87.891 - Personal history of nicotine dependence Medications: Refilled sertraline 50 mg PO DAILY 90 tabs 1RF olanzapine 2.5 mg PO DAILY 90 tabs 1RF Coding Level of Care Code Est Pt Prev Care 40-64y(50371) Diagnoses History of nicotine dependence Z87.891 Screening for prostate cancer Z12.5 Eye exam, routine Z01.00 Screening for colon cancer Z12.11 Hypercholesterolemia E78.00 Superior mesenteric vein thrombosis K55.069 Annual physical exam Z00.00 Class 2 severe obesity with body mass index (BMI) of 35 to 39.9 with serious comorbidity E66.01 Bipolar illness F31.9 Additional Codes TANO-7 Assessment Billing - TANO-7 Assessment Tool: TANO-7 Assessment [id number] ([id number])
== END 2023-07-23 15:17 | disposition home or self-care (01) ==
PROVIDERS: PCP Internal Medicine; Visit Provider Nurse Practitioner Family
DX: Z00.00 Encounter for general adult medical examination without abnormal findings (principal); Z87.891 Personal history of nicotine dependence; E66.01 Morbid (severe) obesity due to excess calories; Z68.37 Body mass index [BMI] 37.0-37.9, adult; K55.069 Acute infarction of intestine, part and extent unspecified; F31.9 Bipolar disorder, unspecified; E78.00 Pure hypercholesterolemia, unspecified
CPT/HCPCS: 99396

== ENCOUNTER 2024-03-11 15:06 | Outpatient (AMB) | payer OTHER, SELFPAY ==
--- NOTE | 2024-03-11 15:07 | A.OFFPC_ITS ---
Vital Signs 03/11/24 15:10 Height 5 ft 10 in Weight 264 lb BMI 37.9 BP 130/84 Blood Pressure Location Lt brachial Position Sitting Pulse 77 Pulse Source Pulse Oximeter Pulse Oximetry (%) 97 Oxygen Delivery Method Room Air Intake Visit Reasons: Transfer of care from [facility] Note: Patient is here to follow up on JAME from [facility] Informatics Consultant Required: No Administrative Technician: Not Required per policy Accompanied by: Self / Same As Patient Allergies No Known Allergies [No Known Allergies*] Allergy (Verified 03/11/24 16:20) Medication List - Last Reconciled 03/11/24 by Ray Porter MD acetaminophen 650 mg (2 x 325 mg) PO Q6H PRN apixaban (Eliquis) 5 mg PO BID aspirin 81 mg PO DAILY atorvastatin 80 mg PO DAILY docusate sodium 100 mg PO DAILY olanzapine 2.5 mg PO DAILY polyethylene glycol 3350 (Miralax) 17 grams PO BID PRN sertraline 50 mg PO DAILY Tobacco use date assessed: 03/11/24 Dental Screening Dental Screen Date: 03/11/24 Did you have a dental visit in the last 12 months?: Yes Did you have a dental problem in the last 6 months where you did not have access to dental care?: No Was dental information given to patient?: Patient has dentist [facility] Transfer of care from [facility] HPI Details 53 yr old presents to the office to disc uss his medical issues. I am assuming his care as his provider has left the practice. Patient would like his prescriptions for mental health/anxiety filled. Patient has bipolar illness for which he is on Olanzapine and Zoloft. He does not have a psychiatrist currently, has a therapist. He comes to the office alone. Does not know his medications. He lives alone in an apt. He has no services. Has a learning disablility and cannot read or write. Does not drive. Goes to the grocery and cooks for himself. Able to handle his own finances, but does not write a check. Patient is not sure if he is taking his anticoagulants. He was diagnosed with Mesentric Vein Thrombosis. According to the medication list, he should be on Apixaban. He cannot recall if he is taking medications [facility] Medical History CAD (coronary artery disease) Class 2 severe obesity with body mass index (BMI) of 35 to 39.9 with serious comorbidity Bipolar illness High cholesterol HTN (hypertension) Surgical History Hx of heart artery stent Status post excision of lipoma Family History Father Cancer Mother No problems noted. Family/Other FH: mental illness Mental health disorder Brother No problems noted. Son In good health Daughter In good health Substance use disorder Social History Household Members: Significant Other Housing: House Do you presently have visiting nurse or other home services: No Alcohol intake: never Patient Tobacco Use Status: Never used Tobacco e-Cigarette/Vaping Use: Never Used Second Hand Smoke Exposure: No service: No Current occupational status: disabled Cognitive needs: No Hearing needs: No Vision needs: No Questionnaire PHQ-9 Over the last 2 weeks, how often have you been bothered by any of the following problems? 1. Little interest or pleasure in doing things: several days 2. Feeling down, depressed, or hopeless: more than half the days 3. Trouble falling or staying asleep, or sleeping too much: more than half the days 4. Feeling tired or having little energy: not at all 5. Poor appetite or overeating: more than half the days 6. Feeling bad about yourself - or that you are a failure or have let yourself or your family down: not at all 7. Trouble concentrating on things, such as reading the newspaper or watching television: not at all 8. Moving or speaking so slowly that other people could have noticed. Or the opposite - being so fidgety or restless that you have been moving around a lot more than usual: not at all 9. Thoughts that you would be better off or of hurting yourself in some way: not at all Total score: 7 Depression Screening Interpretation: Positive Depression Screening Done: Yes Source: Developed by Drs. Blair Mercado, Melissa Driscoll, Jackson Heart and colleagues, with an educational bill from [employer]. Thrive Questionnaire Date Thrive assessed: 03/11/24 I am a: Patient What is your living situation today?: I have a steady place to live Within the past 12 months, did the food you bought not last and you didn't have the money to get more?: Never true Within the past 12 months, did you worry whether your food would run out before you got money to buy more?: Never true Do you have trouble paying for medicines?: No Do you have trouble getting transportation to medical appointments?: No Do you have trouble paying your heating and electricity bill?: No Do you have trouble taking care of your child, family member or friend?: No Do you have trouble with day-to-day activities such as bathing, preparing meals, shopping, managing finances, etc.?: No Are you currently unemployed and looking for a job?: No Are you interested in more education?: No Currently or been in a relationship where the following occur: no concerns reported THRIVE Score: 0 AUDIT C Alcohol Use Questionnaire (AUDIT-C) 1. How often do you have a drink containing alcohol?: Never Total Score: 0 TANO-7 AMB Questionnaire TANO-7 Date TANO - 7 assessed: 03/11/24 Feeling nervous, anxious, or on edge: 2 = More than half the days Not being able to stop or control worryin = More than half the days Worrying too much about different things: 2 = More than half the days Trouble relaxin = Nearly every day Being so restless that it is hard to sit still: 3 = Nearly every day Becoming easily annoyed or irritable: 2 = More than half the days Feeling afraid as if something awful might happen: 3 = Nearly every day Total TANO-7 score (0-4 normal; 5-9 mild; 10-14 moderate; 15-21 severe): 17 Source: Developed by Drs. Blair Mercado, Melissa Driscoll, [employer] and colleagues, with an educational bill from [employer]. Physical exam (Primary Care) Vital Signs: Last Vital Signs Pulse 77 03/11/24 15:10 BP 130/84 03/11/24 15:10 Pulse Ox 97 03/11/24 15:10 Oxygen Delivery Method Room Air 03/11/24 15:10 Care Plan Goal for BP management: BP in range. BMI result Body Mass Index 37.9 BMI Assessment/Plan discussion: High (One pound per week weight loss suggested.) BMI High, discussed plan: lifestyle, weight reduction, dietary and physical activity Tobacco/Smoking Status: Tobacco use Status Tobacco use date assessed 03/11/24 03/11/24 15:21 Patient Tobacco Use Status Never used Tobacco 03/11/24 15:21 e-Cigarette/Vaping Use Never Used 03/11/24 15:21 PHQ-9: PHQ-9 Score PHQ-9: Total score 7 03/11/24 15:21 Depression Screening Interpretation: Positive Thrive Assessment: Date of Thrive Assessment Date Thrive assessed 03/11/24 03/11/24 15:21 Currently or been in a relationship where the following occur: no concerns reported Const General: cooperative and healthy appearing Nutritional Appearance: well nourished Orientation/consciousness: patient oriented x3 Limitations: no limitations HENMT Head: Yes normal to inspection Eyes General: appearance normal, both eyes and all related structures Neck Neck: Yes normal visual inspection Chest Chest palpation & inspection: normal palpation of entire chest wall Resp Effort & Inspection: normal respiratory effort Neuro General: patient oriented x3 Assessment and Plan Assessment & Plan (1) Class 2 severe obesity with body mass index (BMI) of 35 to 39.9 with serious comorbidity: Code(s): E66.01 - Morbid (severe) obesity due to excess calories (2) Superior mesenteric vein thrombosis: Code(s): K55.069 - Acute infarction of intestine, part and extent unspecified Plan: Note from Vascular surgeon from 2021 revd. He had stopped Eliquis then and it w as not suggested to restart. Patient reports he has had no symptoms. As of now, his Eliquis has been stopped. A discussion will be had with household manager to determine if patient needs to be resume his anticoagulation. A formal consult will be placed if necessary. (3) Bipolar illness: Code(s): F31.9 - Bipolar disorder, unspecified Plan: His medications will be restarted. Orders: Orders Basic Metabolic Panel Today E66.01 - Morbid (severe) obesity due to excess calories, K55.069 - Acute infarction of intestine, part and extent unspecified Complete Blood Count no Diff Today E66.01 - Morbid (severe) obesity due to excess calories, K55.069 - Acute infarction of intestine, part and extent unspecified Lipid Panel Today E66.01 - Morbid (severe) obesity due to excess calories, K55.069 - Acute infarction of intestine, part and extent unspecified Liver Panel Today E66.01 - Morbid (severe) obesity due to excess calories, K55.069 - Acute infarction of intestine, part and extent unspecified Thyroid Stimulating Hormone Today E66.01 - Morbid (severe) obesity due to excess calories, K55.069 - Acute infarction of intestine, part and extent unspecified UA and rflx microscopic Today E66.01 - Morbid (severe) obesity due to excess calories, K55.069 - Acute infarction of intestine, part and extent unspecified T Spot TB Today Z11.9 - Encounter for screening for infectious and parasitic diseases, unspecified Referrals Podiatry Referral 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 Medications: Refilled sertraline 50 mg PO DAILY 90 tabs 1RF polyethylene glycol 3350 (Miralax) 17 grams PO BID PRN 850 grams 2RF constipation olanzapine 2.5 mg PO DAILY 90 tabs 1RF apixaban (Eliquis) Take Eliquis 10 mg (two 5 mg tablets) twice daily for 4 more days then Take Eliquis 5 mg 1 tablet twice daily 5 mg PO BID 90 tabs 1RF acetaminophen 650 mg (2 x 325 mg) PO Q6H PRN 30 tabs 0RF Pain, Mild (Pain Scale 1-3) atorvastatin 80 mg PO DAILY 90 tabs 1RF aspirin 81 mg PO DAILY 90 tabs 0RF docusate sodium 100 mg PO DAILY 30 tabs 0RF Coding Level of Care Code Est Pt Level 4 (20283) Diagnoses Class 2 severe obesity with body mass index (BMI) of 35 to 39.9 with serious comorbidity E66.01 Superior mesenteric vein thrombosis K55.069 Bipolar illness F31.9
[2024-03-11 15:10] VITALS: BP 130/84; PULSE 77; O2SAT 97; BMI 37.9
== END 2024-03-11 15:44 | disposition home or self-care (01) ==
PROVIDERS: PCP Nurse Practitioner Family; Visit Provider Internal Medicine
DX: K55.069 Acute infarction of intestine, part and extent unspecified (principal); E66.01 Morbid (severe) obesity due to excess calories; F31.9 Bipolar disorder, unspecified; Z68.37 Body mass index [BMI] 37.0-37.9, adult
CPT/HCPCS: 99214

== ENCOUNTER 2024-03-11 15:50 | Outpatient (REF) | payer OTHER, SELFPAY ==
[2024-03-11 16:16] LABS: Hematocrit 49.4 % (42.0-52.0); Hemoglobin 16.4 g/dl (14.0-18.0); Mean Corpuscular HGB Conc 33.2 g/dl (31.0-36.0); Mean Corpuscular Hemoglobin 27.3 pg (27.0-33.0); Mean Corpuscular Volume 82.3 fL (80.0-98.0); Mean Platelet Volume 10.4 fL (9.4-12.4); Platelet Count 208 X10*3/uL (160-400); Red Cell Distribution Width 13.5 % (11.0-16.0); White Blood Count 7.6 X10*3/uL (4.8-10.8)
[2024-03-11 17:44] LABS: Alanine Aminotransferase 37 U/L (0-40); Albumin Level 4.3 g/dL (3.5-5.0); Alkaline Phosphatase 113 U/L (39-117); Anion Gap 14 (12-20); Aspartate Amino Transferase 26 U/L (5-37); Bilirubin Direct 0.1 mg/dL (0.0-0.5); Bilirubin Total 0.4 mg/dL (0.0-1.0); Blood Urea Nitrogen 17 mg/dL (9-16); Calcium 9.7 mg/dL (8.4-10.2); Carbon Dioxide 27 mmol/L (22-29); Chloride 106 mmol/L (96-108); Cholesterol 192 mg/dL (<200); Estimated Glomerular Filt Rate > 60; Glucose Random 79 mg/dL (60-115); HDL Cholesterol 45 mg/dL (>40); LDL Cholesterol Calculated 88 mg/dL (<100); Potassium 4.3 mmol/L (3.3-5.1); Sodium 143 mmol/L (135-145); Total Protein 7.4 g/dL (6.5-8.0); Triglycerides 297 mg/dL (<150)
[2024-03-11 17:51] LABS: Appearance Urine Clear; Color Urine Yellow; Glucose Urine UA Negative (Negative); Leukocyte Esterase Urine Negative (Negative); Nitrite Urine Negative (Negative); PH 5.5 (5.0-9.0); Urine Blood Negative (Negative); Urine Ketones Trace mg/dL (Negative); Urine Protein Negative (Neg-Trace)
[2024-03-11 17:58] LABS: Thyroid Stimulating Hormone 1.44 uIU/mL (0.32-4.0)
[2024-03-14 07:24] LABS: TS Negative Control Passed; TS Panel A 0; TS Panel B 0; TS Positive Control Passed; TSpotTB Negative (Negative)
== END 2024-03-11 15:51 | disposition home or self-care (01) ==
LOC: HO.LAB 15:50
PROVIDERS: PCP Internal Medicine; Visit Provider Internal Medicine
DX: E66.01 Morbid (severe) obesity due to excess calories (principal); K55.069 Acute infarction of intestine, part and extent unspecified; Z11.9 Encounter for screening for infectious and parasitic diseases, unspecified
CPT/HCPCS: 36415; 80048; 80061; 80076; 81003; 84443; 85027; 86481

== ENCOUNTER 2024-06-25 13:56 | Outpatient (AMB) | payer OTHER, SELFPAY ==
--- NOTE | 2024-06-25 13:58 | A.OFFPC_ITS ---
Vital Signs 06/25/24 13:59 Height 5 ft 10 in Weight 269 lb 4 oz BMI 38.6 BP 120/76 Blood Pressure Location Lt brachial Position Sitting Pulse 79 Pulse Source Pulse Oximeter Pulse Oximetry (%) 96 Oxygen Delivery Method Room Air Intake Visit Reasons: 3mth f/u Intake Note: Patient is here to follow up on Hypercholesterolemia, Sleep Apnea. Complaint of right back of leg pain on going for a month, complaint of abdominal pain on and off. Implementation Advisor Required: No [employer]worker [employer]: Present Accompanied by: Spouse Allergies No Known Allergies [No Known Allergies*] Allergy (Verified 06/25/24 15:02) Medication List - Last Reconciled 06/25/24 by Ray Porter MD acetaminophen 650 mg (2 x 325 mg) PO Q6H PRN apixaban (Eliquis) 5 mg PO BID aspirin 81 mg PO DAILY atorvastatin 80 mg PO DAILY docusate sodium 100 mg PO DAILY olanzapine 2.5 mg PO DAILY polyethylene glycol 3350 (Miralax) 17 grams PO BID PRN sertraline 50 mg PO DAILY Tobacco use date assessed: 06/25/24 Dental Screening Dental Screen Date: 03/11/24 HPI 3mth f/u HPI Details 54-year-old male presents to the office to discuss his chronic medical conditions. For the 1st time today he is accompanied by his . They live in separate apartments. Patient admits that he can not read. He stopped taking all his mental health medications. He stopped taking his anticoagulants. He feels that there is no need for those medications anymore. He now agrees to get a screening colonoscopy done. Patient is complaining of twinges of pain in his lower abdomen and right hip. The last for a few minutes at a time and subside. No associated nausea or vom iting. Able to function and do activities of daily living. Agrees now to get routine blood work done. [facility] Medical History CAD (coronary artery disease) Class 2 severe obesity with body mass index (BMI) of 35 to 39.9 with serious comorbidity Bipolar illness High cholesterol HTN (hypertension) Surgical History Hx of heart artery stent Status post excision of lipoma Family History Father Cancer Mother No problems noted. Family/Other FH: mental illness Mental health disorder Brother No problems noted. Son In good health Daughter In good health Substance use disorder Social History Household Members: Significant Other Housing: House Do you presently have visiting nurse or other home services: No Alcohol intake: never Patient Tobacco Use Status: Never used Tobacco e-Cigarette/Vaping Use: Never Used Second Hand Smoke Exposure: No service: No Current occupational status: disabled Cognitive needs: No Hearing needs: No Vision needs: No Questionnaire Thrive Questionnaire Date Thrive assessed: 03/11/24 TANO-7 AMB Questionnaire TANO-7 Date TANO - 7 assessed: 03/11/24 Source: Developed by Drs. Blair Mercado, Melissa Driscoll, [facility] and colleagues, with an educational bill from [employer]. Physical exam (Primary Care) Vital Signs: Last Vital Signs Pulse 79 06/25/24 13:59 BP 120/76 06/25/24 13:59 Pulse Ox 96 06/25/24 13:59 Oxygen Delivery Method Room Air 06/25/24 13:59 BMI result Body Mass Index 38.6 Tobacco/Smoking Status: Tobacco use Status Tobacco use date assessed 06/25/24 06/25/24 14:04 Patient Tobacco Use Status Never used Tobacco 06/25/24 14:04 e-Cigarette/Vaping Use Never Used 06/25/24 14:04 Thrive Assessment: Date of Thrive Assessment Date Thrive assessed 03/11/24 06/25/24 14:04 Const General: cooperative and healthy appearing Nutritional Appearance: well nourished Orientation/consciousness: patient oriented x3 Limitations: no limitations HENMT Head: Yes normal to inspection Eyes General: appearance normal, both eyes and all related structures Neck Neck: Yes normal visual inspection Chest Chest palpation & inspection: normal palpation of entire chest wall Resp Effort & Inspection: normal respiratory effort Neuro General: patient oriented x3 Assessment and Plan Assessment & Plan (1) Hypercholesterolemia: Code(s): E78.00 - Pure hypercholesterolemia, unspecified Plan: Patient was encouraged to get fasting blood work done. (2) Bipolar illness: Code(s): F31.9 - Bipolar disorder, unspecified Plan: I encouraged him to restart medications. Counseled on the dangers of not taking medications. (3) Superior mesenteric vein thrombosis: Code(s): K55.069 - Acute infarction of intestine, part and extent unspecified Plan: He has stopped taking anticoagulants. An appointment with machine cutter will be requested to determine if he can discontinue these anticoagulants permanently. (4) Right hip pain: Code(s): M25.551 - Pain in right hip Plan: Physical therapy appointment will be ordered. Orders: Orders Complete Blood Count no Diff Today E78.00 - Pure hypercholesterolemia, unspecified Liver Panel Today E78.00 - Pure hypercholesterolemia, unspecified Basic Metabolic Panel Today E78.00 - Pure hypercholesterolemia, unspecified Lipid Panel Today E78.00 - Pure hypercholesterolemia, unspecified UA and rflx microscopic Today E78.00 - Pure hypercholesterolemia, unspecified Thyroid Stimulating Hormone Today E78.00 - Pure hypercholesterolemia, unspecified Referrals Gastroenterology Referral Z12.11 - Encounter for screening for malignant neoplasm of colon Coding Level of Care Code Est Pt Level 4 (47712) Complex EM visit Add On G2211 Diagnoses Hypercholesterolemia E78.00 Bipolar illness F31.9 Superior mesenteric vein thrombosis K55.069 Right hip pain M25.551
[2024-06-25 13:59] VITALS: BP 120/76; PULSE 79; O2SAT 96; BMI 38.6
== END 2024-06-25 14:41 | disposition home or self-care (01) ==
PROVIDERS: PCP Internal Medicine; Visit Provider Internal Medicine
DX: E78.00 Pure hypercholesterolemia, unspecified (principal); F31.9 Bipolar disorder, unspecified; K55.069 Acute infarction of intestine, part and extent unspecified; M25.551 Pain in right hip
CPT/HCPCS: 99214; G2211

== ENCOUNTER 2024-09-14 14:32 | Outpatient (AMB) | payer OTHER, SELFPAY ==
[2024-09-14 14:33] VITALS: BP 138/88; PULSE 74; O2SAT 96; BMI 39.3
--- NOTE | 2024-09-14 14:33 | MHC.PC.OV ---
Vital Signs 09/14/24 14:33 Height 5 ft 10 in Weight 274 lb BMI 39.3 BP 138/88 Blood Pressure Location Lt brachial Position Sitting Pulse 74 Pulse Source Pulse Oximeter Pulse Oximetry (%) 96 Oxygen Delivery Method Room Air Intake Visit Reasons: 3 month f/u Correspondence Analyst Required: No Allergies No Known Allergies [No Known Allergies*] Allergy (Verified 09/24/24 17:13) Medication List - Last Reconciled 09/24/24 by Ray Porter MD acetaminophen 650 mg (2 x 325 mg) PO Q6H PRN apixaban (Eliquis) 5 mg PO BID aspirin 81 mg PO DAILY atorvastatin 80 mg PO DAILY docusate sodium 100 mg PO DAILY olanzapine 2.5 mg PO DAILY polyethylene glycol 3350 (Miralax) 17 grams PO BID PRN sertraline 50 mg PO DAILY Tobacco use date assessed: 06/25/24 Dental Screening Dental Screen Date: 03/11/24 HPI 3 month f/u HPI Details 54-year-old male presents to the office for a follow-up visit. Patient is complaining of discomfort over his right knee. Pain is worse on sitting and is relieved on standing or walking. No history of recent fall or injury. Patient would like to see a psychiatrist to restart his medications for bipolar illness. He has not been taking the medications for the past few months. He only has a therapist. Patient was on olanzapine and sertraline.. Patient believes he is beginning to feel anxious. He is also requesting an EKG to assess his heart. At times he gets nonspecific chest pains. No shortness a breath or palpitations. [facility] Medical History CAD (coronary artery disease) Class 2 severe obesity with body mass index (BMI) of 35 to 39.9 with serious comorbidity Bipolar illness High cholesterol HTN (hypertension) Surgical History Hx of heart artery stent Status post excision of lipoma Family History Father Cancer Mother No problems noted. Family/Other FH: mental illness Mental health disorder Brother No problems noted. Son In good health Daughter In good health Substance use disorder Social History Household Members: Significant Other Housing: House Do you presently have visiting nurse or other home services: No Alcohol intake: never Patient Tobacco Use Status: Never used Tobacco e-Cigarette/Vaping Use: Never Used Second Hand Smoke Exposure: No service: No Current occupational status: disabled Cognitive needs: No Hearing needs: No Vision needs: No Questionnaire Thrive Questionnaire Date Thrive assessed: 03/11/24 AUDIT C Alcohol Use Questionnaire (AUDIT-C) 1. How often do you have a drink containing alcohol?: Never 3. How often do you have six or more drinks on one occasion?: Never Total Score: 0 TANO-7 AMB Questionnaire TANO-7 Date TANO - 7 assessed: 03/11/24 Source: Developed by Drs. Blair Mercado, Melissa Driscoll, [facility] and colleagues, with an educational bill from [employer]. Physical exam (Primary Care) Vital Signs: Last Vital Signs Pulse 74 09/14/24 14:33 BP 138/88 09/14/24 14:33 Pulse Ox 96 09/14/24 14:33 Oxygen Delivery Method Room Air 09/14/24 14:33 BMI result Body Mass Index 39.3 BMI Assessment/Plan discussion: High Tobacco/Smoking Status: Tobacco use Status Tobacco use date assessed 06/25/24 09/14/24 14:34 Patient Tobacco Use Status Never used Tobacco 09/14/24 14:34 e-Cigarette/Vaping Use Never Used 09/14/24 14:34 Thrive Assessment: Date of Thrive Assessment Date Thrive assessed 03/11/24 09/14/24 14:34 Const General: cooperative and healthy appearing Nutritional Appearance: well nourished Orientation/consciousness: patient oriented x3 Limitations: no limitations HENMT Head: Yes normal to inspection Eyes General: appearance normal, both eyes and all related structures Neck Neck: Yes normal visual inspection Chest Chest palpation & inspection: normal palpation of entire chest wall Resp Effort & Inspection: normal respiratory effort Neuro General: patient oriented x3 Office Procedures EKG Details: Normal sinus rhythm. 60276-Hfmxqrwtmccfjhhsn, Complete Coding Level of Care Code Est Pt Level 4 (28683) Complex EM visit Add On G2211 Diagnoses Chest pain R07.9 Bipolar illness F31.9 Knee sprain S83.90XA Hypercholesterolemia E78.00 Superior mesenteric vein thrombosis K55.069 Class 2 severe obesity with body mass index (BMI) of 35 to 39.9 with serious comorbidity E66.01 CPT Codes EKG - CPT: 89461-Zvnalbgpuhpkafiok, Complete ([id number]) Assessment & Plan Assessment & Plan (1) Chest pain: Code(s): R07.9 - Chest pain, unspecified Plan: EKG has been ordered and reviewed. (2) Bipolar illness: Code(s): F31.9 - Bipolar disorder, unspecified Category: Medical Plan: Olanzapine and Seroquel have been restarted. An appointment with the psychiatrist has been requested. (3) Knee sprain: Code(s): S83.90XA - Sprain of unspecified site of unspecified knee, initial encounter Plan: Left knee pain is probably minor. Reassurance. (4) Hypercholesterolemia: Code(s): E78.00 - Pure hypercholesterolemia, unspecified Category: Medical Plan: Continue the statins. Patient has been told to get blood work time on multiple occasions. (5) Superior mesenteric vein thrombosis: Code(s): K55.069 - Acute infarction of intestine, part and extent unspecified Category: Medical Plan: Patient has stopped all oral anticoagulation. He did not see the player development executive as requested. (6) Class 2 severe obesity with body mass index (BMI) of 35 to 39.9 with serious comorbidity: Code(s): E66.01 - Morbid (severe) obesity due to excess calories Category: Medical Plan: Counseling on the importance of diet and exercise done Orders: Orders AMB EKG-In Office 09/14/24 R07.9 - Chest pain, unspecified Referrals Psychiatry Outpatient Consultation Service F31.9 - Bipolar disorder, unspecified Medications: Refilled sertraline 50 mg PO DAILY 90 tabs 1RF olanzapine 2.5 mg PO DAILY 90 tabs 1RF atorvastatin 80 mg PO DAILY 90 tabs 1RF
== END 2024-09-14 16:03 | disposition home or self-care (01) ==
PROVIDERS: PCP Internal Medicine; Visit Provider Internal Medicine
DX: R07.9 Chest pain, unspecified (principal); F31.9 Bipolar disorder, unspecified; K55.069 Acute infarction of intestine, part and extent unspecified; E66.01 Morbid (severe) obesity due to excess calories; S83.91XA Sprain of unspecified site of right knee, initial encounter; E78.00 Pure hypercholesterolemia, unspecified; Z68.39 Body mass index [BMI] 39.0-39.9, adult

== ENCOUNTER → 2024-09-14 14:32 | Outpatient (BNVA) | payer OTHER, SELFPAY | PROVIDERS: PCP Internal Medicine; Visit Provider Internal Medicine | DX: R07.9 Chest pain, unspecified (principal); F31.9 Bipolar disorder, unspecified; S83.90XA Sprain of unspecified site of unspecified knee, initial encounter; E78.00 Pure hypercholesterolemia, unspecified; K55.069 Acute infarction of intestine, part and extent unspecified; E66.01 Morbid (severe) obesity due to excess calories; Z68.39 Body mass index [BMI] 39.0-39.9, adult; Z71.3 Dietary counseling and surveillance | CPT/HCPCS: 93005; 99212 ==

== ENCOUNTER 2024-12-24 15:21 | Outpatient (AMB) | payer OTHER, SELFPAY ==
[2024-12-24 16:10] VITALS: BP 158/100; PULSE 76; TEMP 36.8; O2SAT 99; BMI 39.3
--- NOTE | 2024-12-24 16:10 | A.OFFPC_ITS ---
Vital Signs 12/24/24 16:10 Height 5 ft 10 in Weight 274 lb 2 oz BMI 39.3 BP 158/100 H Blood Pressure Location Lt brachial Position Sitting Pulse 76 Pulse Source Pulse Oximeter Temp 98.2 F Temp Source Temporal Artery Scan Pulse Oximetry (%) 99 Oxygen Delivery Method Room Air Intake Visit Reasons: 3mth f/u Paraffin Machine Operator Required: No Accompanied by: Self / Same As Patient Allergies No Known Allergies [No Known Allergies*] Allergy (Verified 12/25/24 18:44) Medication List - Last Reconciled 12/25/24 by Ray Porter MD acetaminophen 650 mg (2 x 325 mg) PO Q6H PRN apixaban (Eliquis) 5 mg PO BID aspirin 81 mg PO DAILY atorvastatin 80 mg PO DAILY docusate sodium 100 mg PO DAILY olanzapine 2.5 mg PO DAILY polyethylene glycol 3350 (Miralax) 17 grams PO BID PRN sertraline 50 mg PO DAILY Tobacco use date assessed: 12/24/24 Dental Screening Dental Screen Date: 12/24/24 Did you have a dental visit in the last 12 months?: Yes Did you have a dental problem in the last 6 months where you did not have access to dental care?: No Was dental information given to patient?: Patient has dentist HPI 3mth f/u HPI Details 54 yr old male presents to the office to discuss his medical conditions. Reports no new symptoms. Very silent. Alone in the room. Mumbles that he is compliant with medications REPLACED BY [facility] Medical History (Updated 12/25/24 @ 18:51 by Ray Porter MD) CAD (coronary artery disease) Class 2 severe obesity with body mass index (BMI) of 35 to 39.9 with serious comorbidity Bipolar illness High cholesterol HTN (hypertension) Surgical History Hx of heart artery stent Status post excision of lipoma Family History Father Cancer Mother No problems noted. Family/Other FH: mental illness Mental health disorder Brother No problems noted. Son In good health Daughter In good health Substance use disorder Social History Household Members: Significant Other Housing: House Do you presently have visiting nurse or other home services: No Alcohol intake: never Patient Tobacco Use Status: Never used Tobacco e-Cigarette/Vaping Use: Never Used Second Hand Smoke Exposure: No service: No Current occupational status: disabled Cognitive needs: No Hearing needs: No Vision needs: No Questionnaire PHQ-9 Over the last 2 weeks, how often have you been bothered by any of the following problems? 1. Little interest or pleasure in doing things: nearly every day 2. Feeling down, depressed, or hopeless: more than half the days 3. Trouble falling or staying asleep, or sleeping too much: not at all 4. Feeling tired or having little energy: not at all 5. Poor appetite or overeating: nearly every day 6. Feeling bad about yourself - or that you are a failure or have let yourself or your family down: not at all 7. Trouble concentrating on things, such as reading the newspaper or watching television: more than half the days 8. Moving or speaking so slowly that other people could have noticed. Or the opposite - being so fidgety or restless that you have been moving around a lot more than usual: nearly every day 9. Thoughts that you would be better off or of hurting yourself in some way: not at all Total score: 13 40125 - PHQ-9 Billing: Yes Source: Developed by Drs. Blair Mercado, Melissa Driscoll, Jackson [employer] and colleagues, with an educational bill from [employer]. Thrive Questionnaire Date Thrive assessed: 12/24/24 I am a: Patient What is your living situation today?: I have a steady place to live Within the past 12 months, did the food you bought not last and you didn't have the money to get more?: Never true Within the past 12 months, did you worry whether your food would run out before you got money to buy more?: Never true Do you have trouble paying for medicines?: No Do you have trouble getting transportation to medical appointments?: No Do you have trouble paying your heating and electricity bill?: No Do you have trouble taking care of your child, family member or friend?: No Do you have trouble with day-to-day activities such as bathing, preparing meals, shopping, managing finances, etc.?: No Are you currently unemployed and looking for a job?: No Are you interested in more education?: No Please select the resources that you would like help with: None Currently or been in a relationship where the following occur: No concerns reported THRIVE Score: 0 AUDIT C Alcohol Use Questionnaire (AUDIT-C) 1. How often do you have a drink containing alcohol?: Never 3. How often do you have six or more drinks on one occasion?: Never Total Score: 0 TANO-7 AMB Questionnaire TANO-7 Date TANO - 7 assessed: 12/24/24 Feeling nervous, anxious, or on edge: 2 = More than half the days Not being able to stop or control worryin = Nearly every day Worrying too much about different things: 3 = Nearly every day Trouble relaxin = More than half the days Being so restless that it is hard to sit still: 3 = Nearly every day Becoming easily annoyed or irritable: 2 = More than half the days Feeling afraid as if something awful might happen: 0 = Not at all Total TANO-7 score (0-4 normal; 5-9 mild; 10-14 moderate; 15-21 severe): 15 Source: Developed by Drs. Blair Mercado, Melissa Driscoll, [employer] and colleagues, with an educational bill from [employer]. TANO-7 Assessment Billing TANO-7 Assessment Tool: TANO-7 Assessment 58845 Physical exam (Primary Care) Vital Signs: Last Vital Signs Temp 98.2 F 12/24/24 16:10 Pulse 76 12/24/24 16:10 BP 158/100 H 12/24/24 16:10 Pulse Ox 99 12/24/24 16:10 Oxygen Delivery Method Room Air 12/24/24 16:10 BMI result Body Mass Index 39.3 Tobacco/Smoking Status: Tobacco use Status Tobacco use date assessed 12/24/24 12/24/24 16:19 Patient Tobacco Use Status Never used Tobacco 12/24/24 16:19 e-Cigarette/Vaping Use Never Used 12/24/24 16:19 PHQ-9: PHQ-9 Score PHQ-9: Total score 13 12/24/24 16:19 Thrive Assessment: Date of Thrive Assessment Date Thrive assessed 12/24/24 12/24/24 16:19 Currently or been in a relationship where the following occur: No concerns reported Const General: cooperative and healthy appearing Nutritional Appearance: well nourished Orientation/consciousness: patient oriented x3 Limitations: no limitations HENMT Head: Yes normal to inspection Eyes General: appearance normal, both eyes and all related structures Neck Neck: Yes normal visual inspection Chest Chest palpation & inspection: normal palpation of entire chest wall Resp Effort & Inspection: normal respiratory effort Neuro General: patient oriented x3 Coding Level of Care Code Est Pt Level 3 (11236) Complex EM visit Add On G2211 Diagnoses Poor historian Z78.9 Essential hypertension I10 Additional Codes TANO-7 Assessment Billing - TANO-7 Assessment Tool: TANO-7 Assessment 08794 ([id number]) PHQ-9 - 55005 - PHQ-9 Billing: Yes ([id number]) Assessment & Plan Assessment & Plan (1) Poor historian: Comment: Difficult to get accurate history Code(s): Z78.9 - Other specified health status Category: Medical Plan: As above (2) HTN (hypertension): Code(s): I10 - Essential (primary) hypertension Category: Medical Plan: Informed patient that his BP is elevated. He got up and said he will be more compliant with meds and left
--- OUTSIDE RECORDS SUMMARY | 2024-12-24 18:41 | XMS_ITS | Clinical Summary ---
Author Organization [employer] Address [address] [facility] [address] [place] [address] Care Team Providers Care Single Pass Soil Stabilizer Operator Name Role Phone Unavailable Primary Care Provider Unavailabl e Encounters Date Type Department Care Team Description 10/23/2024 Patient Outreach [facility] [address] [place], [place] [id number] Mohinder Vazquez Recovery Supports 10/15/2024 Patient Outreach [facility] MEDICINE [address] [place] [address] Mohinder Vazquez Recovery Supports 10/07/2024 9:00 AM EST Office Visit [facility] [address] [place] [address] Sánchez Nash MD Substance use disorder (Primary Dx) 10/07/2024 Travel from Last 3 Months Social History Tobacco Use Types Packs/Day Years Used Date Smoking Tobacco: Never Assessed Sex and Gender Information Value Date Recorded Sex Assigned at Male 11/01/2023 12:12 PM EST Legal Sex Male 8:14 AM EDT Gender Identity Male 11/01/2023 12:12 PM EST Sexual Orientation Straight 11/01/2023 12 :12 PM EST Plan of Treatment Health Maintenance Due Date Last Done Comments CT Colonography 1970 Colonoscopy 1970 Colorectal Cancer Screening 1970 Depression Screening 1970 FIT DNA/Cologuard 1970 FIT 1970 FOBT 1970 HIV Screening 1970 Lipid Panel 1970 SDOH Screening 1970 Sigmoidoscopy 1970 Alcohol/Substance Use Screening 1982 Tobacco Screening 1982 Hepatitis C Screening 1988 DTaP/Tdap/Td Vaccines (1 - Tdap) 1989 Hepatitis B Vaccines (1 of 3 - 19+ 3-dose series) 1989 Pneumococcal Vaccine: 50+ Ye ars (1 of 1 - PCV) 2020 Zoster Vaccines (1 of 2) 2020 COVID-19 Vaccine (1 - 2023-2 5 season) 2024 Influenza Vaccine (#1) 2024 RSV Patients and Pa tients Aged 60 years or older (1 - 1-dose 75+ series) 2045 HIB Vaccines Aged Out No longer eligi ble based on patient's age to complete this topic HPV Vaccines Aged Out No longer eligi ble based on patient's age to complete this topic Hepatitis A Vaccines Aged Out No long er eligible based on patient's age to complete this topic IPV Vaccines Aged Out No longer eligi ble based on patient's age to complete this topic Meningococcal Vaccine Aged Out No navid jodee eligible based on patient's age to complete this topic Pneumococcal Vaccine: Pediat rics (0 to 5 Years) and At-Risk Patients (6 to 49) Years) Aged Out No longer eligible b ased on patient's age to complete this topic RSV under 20 months Aged Out No longe r eligible based on patient's age to complete this topic Rotavirus Vaccines Aged Out No longer eligible based on patient's age to complete this topic Insurance [facility]
--- OUTSIDE RECORDS SUMMARY | 2024-12-24 18:41 | XMS_ITS ---
Author Organization [facility] Address [address] [facility] [place] [address] Care Team Providers Care Roentgenologist Name Role Phone Ray Porter Primary Care Provider Sweta Aguilera Unavailable [phone] Riki Mehta [phone] Encounters Encounter Location Date Provider Diagnosis [address] [address] 11/26/2024 Riki Mehta Plan Of Treatment No Information Progress Notes * CAREY, Yomi EDOB:1970 (54 yo M)Acc No.[id number]:11/26/2024 Progress Notes Patient:?Yomi CAREY Provider:?Riki Mehta D.P.M. :1970???Age:54 Y???Sex:Male John e:11/26/2024 Address:[address] [id number] Pcp:Ray Porter Subjective: * Chief Complaints: * ??? * Medical History:? Objective: * Vitals:? Assessment: Plan: * Treatment: * Images: * The named appointment provid er may or may not be the originator of this progress note, and it is not deemed complete until electronically signed by the appointment provider. Sign off status: Pending * Provider:?Riki Mehta D.P.M. Date:?10/30 Generated for Romulo eden/Tucker/eTransmitting on:?12/24/2024 06:41 PM EST
--- OUTSIDE RECORDS SUMMARY | 2024-12-24 18:41 | XMS_ITS ---
Author Organization [facility] Address [address] [place] [address] Care Team Providers Care Pulp Screen Operator Name Role Phone Ray Porter Primary Care Provider [phone] Sweta Aguilera Unavailable [phone] Riki Mehta [phone] Encounters Encounter Location Date Provider Diagnosis [address] [address] 10/20/2024 Riki Mehta Plan Of Treatment No Information Progress Notes * Yomi CAREY EDOB:1970 (54 yo M)Acc No.[id number]:10/20/2024 Progress Notes Patient:?Yomi CAREY Provider:?Riki Mehta D.P.M. :1970???Age:54 Y???Sex:Male John e:10/20/2024 Address[address], [place] Pcp:Ray Porter Subjective: * Chief Complaints: * ??? * Medical History:? Objective: * Vitals:? Assessment: Plan: * Treatment: * Images: * The named appointment provid er may or may not be the originator of this progress note, and it is not deemed complete until electronically signed by the appointment provider. Sign off status: Pending * Provider:?Riki Mehta D.P.M. Date:?09/28 Generated for Romulo eden/Tucker/eTransmitting on:?12/24/2024 06:41 PM EST
--- OUTSIDE RECORDS SUMMARY | 2024-12-24 18:42 | XMS_ITS | Patient Health Record ---
Author Organization [facility] Address [address] [place] [address] Care Team Providers Care Pipeline Superintendent Division Name Role Phone Ray Porter Primary Care Provider Sweta Aguilera Unavailable [phone] Riki Mehta Unavailable [phone] Reason For Referral No Information Encounters Encounter Location Date Provider Diagnosis [address] [address] 06/12/[address] [address] 10/01/2024 Sweta Aguilera [address] [address] 10/12/[address] [address] 11/18/2024 Sweta Aguilera Plan Of Treatment No Information Insurance Providers Payer Name Payer Address Payer Phone Subscriber Number Group Number Insured Name Patient Relationship to Insured Coverage Start Date Coverage End Date [facility] [employer] Claims [address] [place] [id number] Yomi Ponce Self - patient is the insured
--- OUTSIDE RECORDS SUMMARY | 2024-12-24 18:42 | XMS_ITS ---
Author Organization [facility] Address [address] [place] [address] Care Team Providers Care Casting Machine Adjuster Name Role Phone CharlotteRay Primary Care Provider Sweta Aguilera [phone] REASON FOR VISIT CX PHYSICIAN PRACTICE COORDINATOR appt 11/24 Encounters Encounter Location Date Provider [facility] [address] [facility] [place] [address] 11/18/2024 Sweta Aguilera Plan Of Treatment No Information Progress Notes * Yomi PONCE EDOB:1970 (54 yo M)Acc No.[id number]:11/18/2024 Patient:?Yomi PONCE :1970???Age:54 Y???Sex:Male Address:[address] [place], [address] * true * Date:? Generated for Stephaniei karey/Tucker/eTransmitting on:?12/24/2024 06:41 PM EST
== END 2024-12-24 16:30 | disposition home or self-care (01) ==
PROVIDERS: PCP Internal Medicine; Visit Provider Internal Medicine
DX: Z78.9 Other specified health status (principal); I10 Essential (primary) hypertension

== ENCOUNTER → 2024-12-24 15:21 | Outpatient (BNVA) | payer OTHER, SELFPAY | PROVIDERS: PCP Internal Medicine; Visit Provider Internal Medicine | DX: I10 Essential (primary) hypertension (principal); Z78.9 Other specified health status | CPT/HCPCS: 96127; 99212 ==

== ENCOUNTER 2025-03-25 14:46 | Outpatient (AMB) | payer OTHER, SELFPAY ==
--- OUTSIDE RECORDS SUMMARY | 2025-03-25 14:50 | XMS_ITS | Clinical Summary ---
Author Organization [employer] Address [address] [facility] [address] [place] [address] Care Team Providers Care Director Clinical Information Services Name Role Phone Unavailable Primary Care Provider Unavailabl e Encounters Date Type Department Care Team Description 02/22/2025 Patient Outreach [address] [address] Lamin Mabry Recovery Supports 02/12/2025 Patient Outreach [facility] [address] [place] [address] Alex Barreto Recovery Supports 01/22/2025 Patient Outreach [address] [phone] Alex Barreto Recovery Supports from Last 3 Months Social History Tobacco [...] Panel 1970 SDOH Screening 1970 Sigmoidoscopy 1970 Disability Screening 1970 Alcohol/Substance Use Screening 1982 Tobacco Screening 1982 Hepatitis C Screening 1988 DTaP/Tdap/Td Vaccines (1 - Tdap) 1989 Hepatitis B Vaccines (1 of 3 - 19+ 3-dose series) 1989 Pneumococcal Vaccine: 50+ Ye ars (1 of 1 - PCV) 2020 Zoster Vaccines (1 of 2) 2020 COVID-19 Vaccine (2023-2 5 season) 2024 Influenza Vaccine (#1) 2024 [...] patient's age to complete this topic Meningococcal B Vaccine Aged Out No l onger eligible based on patient's age to complete this topic Meningococcal Vaccine Aged Out No navid jodee eligible based on patient's age to complete this topic RSV under 20 months Aged Out No longe r eligible based on patient's age to complete this topic Rotavirus Vaccines Aged Out No longer eligible based on patient's age to complete this topic Insurance [facility] < 65 [place] [id number] [facility]
[2025-03-25 14:52] VITALS: BP 122/86; PULSE 72; O2SAT 96; BMI 39.7
--- NOTE | 2025-03-25 14:52 | MHC.PC.OV ---
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 Accompanied by: Self / Same As Patient Allergies No Known Allergies [No Known Allergies*] Allergy (Verified 03/25/25 15:06) Medication List - Last Reconciled 03/25/25 by Shruti Hess PA-C acetaminophen 650 mg (2 x 325 mg) PO Q6H PRN apixaban (Eliquis) 5 mg PO BID aspirin 81 mg PO DAILY atorvastatin 80 mg PO DAILY docusate sodium 100 mg PO DAILY olanzapine 2.5 mg PO DAILY polyethylene glycol 3350 (Miralax) 17 grams PO BID PRN sertraline 50 mg PO DAILY Tobacco use date assessed: 03/25/25 Dental Screening Dental Screen Date: 03/25/25 Did you have a dental visit in the last 12 months?: No Did you have a dental problem in the last 6 months where you did not have access to dental care?: No Was dental information given to patient?: No HPI 3 MONTH F/U HPI Details The patient is a 54-year-old with a past medical history significant for myocardial infarction status post stented twice, hypertension, obesity, hypercholesterolemia, bipolar illness, sleep apnea who is presenting to the primary care clinic with chest pain and a follow-up for chronic conditions. Patient is currently prescribed Eliquis 5 mg b.i.d., aspirin, atorvastatin although reports he has not taken these medications in quite some time and requesting refill at this time. The chest pain started 2-4 days ago, with a sensation of tightness on the left side of the chest. The pain is accompanied by fatigue and right arm pain, rated 2-3 out of 10 in severity. The patient denies dizziness, headaches, vision changes, numbness, nausea, vomiting, jaw pain, or shortness of breath. The patient has a history of myocardial infarctions and stent placement, with non-adherence to medications including Eliquis. Social History - Denies use of tobacco, alcohol, or recreational drugs. - Reports increased anger and stress. - Has experienced some weight gain and is planning to reduce it. - Reports living in [place], with occasional absences. - Has a history of transportation issues impacting medical appointments. [facility] Medical History (Updated 03/25/25 @ 15:44 by Shruti Hess PA-C) Depression Anxiety History of NV (myocardial infarction) Chest pain Intermittent chest pain CAD (coronary artery disease) Class 2 severe obesity with body mass index (BMI) of 35 to 39.9 with serious comorbidity Bipolar illness High cholesterol HTN (hypertension) Surgical History Hx of heart artery stent Status post excision of lipoma Family History Father Cancer Mother No problems noted. Family/Other FH: mental illness Mental health disorder Brother No problems noted. Son In good health Daughter In good health Substance use disorder Social History Household Members: Significant Other Housing: House Do you presently have visiting nurse or other home services: No Alcohol intake: never Patient Tobacco Use Status: Never used Tobacco e-Cigarette/Vaping Use: Never Used Second Hand Smoke Exposure: No service: No Current occupational status: disabled Cognitive needs: No Hearing needs: No Vision needs: No Questionnaire PHQ-9 Over the last 2 weeks, how often have you been bothered by any of the following problems? 1. Little interest or pleasure in doing things: nearly every day 2. Feeling down, depressed, or hopeless: more than half the days 3. Trouble falling or staying asleep, or sleeping too much: not at all 4. Feeling tired or having little energy: not at all 5. Poor appetite or overeating: nearly every day 6. Feeling bad about yourself - or that you are a failure or have let yourself or your family down: not at all 7. Trouble concentrating on things, such as reading the newspaper or watching television: more than half the days 8. Moving or speaking so slowly that other people could have noticed. Or the opposite - being so fidgety or restless that you have been moving around a lot more than usual: nearly every day 9. Thoughts that you would be better off or of hurting yourself in some way: not at all Total score: 13 Depression Screening Interpretation: Positive Depression Screening Follow-up: Existing condition and In treatment Depression Screening Done: Yes 20619 - PHQ-9 Billing: Yes Source: Developed by Drs. Blair Mercado, Melissa Driscoll, Jackson Heart and colleagues, with an educational bill from [employer]. Thrive Questionnaire Date Thrive assessed: 03/25/25 I am a: Patient What is your living situation today?: I have a steady place to live Within the past 12 months, did the food you bought not last and you didn't have the money to get more?: Never true Within the past 12 months, did you worry whether your food would run out before you got money to buy more?: Never true Do you have trouble paying for medicines?: No Do you have trouble getting transportation to medical appointments?: No Do you have trouble paying your heating and electricity bill?: No Do you have trouble taking care of your child, family member or friend?: No Do you have trouble with day-to-day activities such as bathing, preparing meals, shopping, managing finances, etc.?: No Are you currently unemployed and looking for a job?: No Are you interested in more education?: No Please select the resources that you would like help with: None Currently or been in a relationship where the following occur: No concerns reported THRIVE Score: 0 AUDIT C Alcohol Use Questionnaire (AUDIT-C) 1. How often do you have a drink containing alcohol?: Never 3. How often do you have six or more drinks on one occasion?: Never Total Score: 0 Score Reviewed/Action Taken: No TANO-7 AMB Questionnaire TANO-7 Date TANO - 7 assessed: 03/25/25 Feeling nervous, anxious, or on edge: 2 = More than half the days Not being able to stop or control worryin = Nearly every day Worrying too much about different things: 3 = Nearly every day Trouble relaxin = More than half the days Being so restless that it is hard to sit still: 3 = Nearly every day Becoming easily annoyed or irritable: 2 = More than half the days Feeling afraid as if something awful might happen: 0 = Not at all Total TANO-7 score (0-4 normal; 5-9 mild; 10-14 moderate; 15-21 severe): 15 Source: Developed by Drs. Blair Mercado, Melissa Driscoll, [employer] and colleagues, with an educational bill from [employer]. TANO-7 Assessment Billing TANO-7 Assessment Tool: TANO-7 Assessment 01766 Review of Systems Const Details: - Cardiovascular: Reports chest pain, right arm pain, and fatigue. Denies shortness of breath, leg swelling. - Neurological: Denies dizziness or changes in vision, but reports chronic dizziness when laughing. - Gastrointestinal: Denies nausea, vomiting, and abdominal pain. - Musculoskeletal: Reports right arm pain. - Psychiatric: Reports increased anger and stress. Physical exam (Primary Care) Vital Signs: Last Vital Signs Pulse 72 03/25/25 14:52 BP 122/86 03/25/25 14:52 Pulse Ox 96 03/25/25 14:52 Oxygen Delivery Method Room Air 03/25/25 14:52 Care Plan Goal for BP management: <140/90 at Goal BMI result Body Mass Index 39.7 BMI Assessment/Plan discussion: High BMI High, discussed plan: lifestyle, weight reduction, dietary, physical activity and alcohol moderation Tobacco/Smoking Status: Tobacco use Status Tobacco use date assessed 03/25/25 03/25/25 15:04 Patient Tobacco Use Status Never used Tobacco 03/25/25 15:04 e-Cigarette/Vaping Use Never Used 03/25/25 15:04 PHQ-9: PHQ-9 Score PHQ-9: Total score 13 03/25/25 15:06 Depression Screening Interpretation: Positive Depression Screening Follow-up: Existing condition and In treatment Thrive Assessment: Date of Thrive Assessment Date Thrive assessed 03/25/25 03/25/25 15:04 Currently or been in a relationship where the following occur: No concerns reported Const Other: Appearance: Alert. Oriented X3. No acute distress. Head: Normal external exam. Normocephalic. Atraumatic. Eyes: Pupils are equal, round, and reactive to light. Extraocular movements intact. Conjunctiva and sclera normal. Eyelids normal. Ears: External auditory canal normal. Tympanic membranes normal. Throat: Pharynx normal. Uvula midline. Moist mucous membranes. Neck: Normal inspection. Neck supple. Full range of motion. No adenopathy. Thyroid Normal. No meningeal signs. No neck mass noted. Cardiovascular: Abnormal heart rate and rhythm. Heart sound includes a murmur. No pacemaker. History of 2 MIs and stents placed. Pulses normal throughout. Respiratory: No respiratory distress. Painless inspiration. Breath sounds normal. No wheezes/rales/rhonchi noted. Chest nontender. No accessory muscle usage noted or decreased air movement noted. Abdomen: Soft and nontender. Bowel sounds normal in all 4 quadrants. No distention noted. No organomegaly noted. No visible injury noted. Back: No costovertebral angle tenderness. Full range of motion noted. Skin: Skin warm and dry. Normal skin color. Normal skin turgor. No rashes/lesions/lacerations noted. Extremities: No lower extremity edema. Extremities exhibit normal range of motion. Extremities nontender. Neuro: Oriented X 3. No motor deficit. No sensory deficit. Reflexes normal. Office Procedures EKG Details: EKG sinus rhythm with inverted T-waves in leads I, aVL and V6. Reviewed with Dr. Pisano concern for ischemia. sent to ED [id number]-[id number], Complete Results Reviewed Results Reviewed: - EKG: Abnormal findings noted; further evaluation recommended. Coding Level of Care Code Est Pt Level 4 (46227) Complex EM visit Add On G2211 Diagnoses Chest pain R07.9 History of NV (myocardial infarction) I25.2 Essential hypertension I10 Hypercholesterolemia E78.00 Bipolar illness F31.9 Anxiety F41.9 Depression F32.A Screening for colon cancer Z12.11 CPT Codes EKG - CPT: 88316-[id number], Complete ([id number]) Additional Codes TANO-7 Assessment Billing - TANO-7 Assessment Tool: TANO-7 Assessment 84084 ([id number]) PHQ-9 - 37489 - PHQ-9 Billing: Yes ([id number]) Assessment & Plan Assessment & Plan (1) Chest pain: Code(s): R07.9 - Chest pain, unspecified Category: Medical Plan: An urgent referral to the emergency department was made for chest pain evaluation due to abnormal EKG findings and history of myocardial infarction. Patient declined EMS. Patient will be walking over with staff member at bedside and . Report given to Valencia BAIG at triage. (2) History of NV (myocardial infarction): Comment: s/p stented x 2 Code(s): I25.2 - Old myocardial infarction Category: Medical Plan: The patient has a history of myocardial infarction and needs regular follow-up. Medication adherence was discussed. Due to active chest pain, abnormal EKG patient was referred to the emergency department at this time. Will continue to monitor. (3) HTN (hypertension): Code(s): I10 - Essential (primary) hypertension Category: Medical Plan: The patient is advised to monitor blood pressure. Initiation of antihypertensive medication may be considered if blood pressure remains elevated. (4) Hypercholesterolemia: Code(s): E78.00 - Pure hypercholesterolemia, unspecified Category: Medical Plan: Patient instructed to restart atorvastatin 80 mg at bedtime. Condition is chronic and stable continue to monitor (5) Bipolar illness: Code(s): F31.9 - Bipolar disorder, unspecified Category: Medical Plan: The patient is advised to adhere to alprazolam and sertraline to manage symptoms of bipolar disorder. Medication adherence was emphasized. Condition is chronic and stable will continue to monitor. (6) Anxiety: Code(s): F41.9 - Anxiety disorder, unspecified Category: Medical Plan: Management with alprazolam and sertraline for anxiety continues. Medication adherence was stressed due to increased stress levels. Condition is chronic and stable continue to monitor. (7) Depression: Code(s): F32.A - Depression, unspecified Category: Medical Plan: Management with alprazolam and sertraline for anxiety continues. Medication adherence was stressed due to increased stress levels. Condition is chronic and stable continue to monitor (8) Screening for colon cancer: Code(s): Z12.11 - Encounter for screening for malignant neoplasm of colon Category: Medical Plan: Will refer to GI for colon cancer screening. Plan Plan Patient was informed and verbally consented to the use of an ambient scribe for clinic note documentation during this visit. 1. Bipolar Disorder The patient is advised to adhere to alprazolam and sertraline to manage symptoms of bipolar disorder. Medication adherence was emphasized. 2. Anxiety Management with alprazolam and sertraline for anxiety continues. Medication adherence was stressed due to increased stress levels. 3. Depression The patient should continue sertraline for depression management and adhere to medication to manage symptoms effectively. 4. Hypertension The patient is advised to monitor blood pressure. Initiation of antihypertensive medication may be considered if blood pressure remains elevated. 5. Chest Pain An urgent referral to the emergency department was made for chest pain evaluation due to abnormal EKG findings and history of myocardial infarction. 6. History Of Myocardial Infarction The patient has a history of myocardial infarction and needs regular follow-up. Medication adherence was discussed. 7. History Of Stent Placement Adherence to prescribed medications post-stent placement is essential to prevent complications. I discussed with the patient the abnormal EKG findings and the potential risk of cardiac events, given his history of myocardial infarction and stent placement. The urgency of visiting the emergency department for further evaluation was emphasized, and the patient agreed to go, although he declined ambulance transport. We reviewed the importance of medication adherence, particularly for managing his chronic cardiac conditions and preventing further cardiac events. I provided education on the necessity of consistent use of Eliquis, atorvastatin, and aspirin. The patient was advised to continue taking alprazolam and sertraline for anxiety and depression. I discussed monitoring blood pressure and the possibility of starting antihypertensive therapy if needed. We also reviewed the need for a colonoscopy screening, and a referral to a media production manager was planned. I offered to reschedule the psychiatry appointment due to transportation issues. Orders: Orders AMB EKG-In Office Today R07.9 - Chest pain, unspecified Referrals Gastroenterology Referral Z12.11 - Encounter for screening for malignant neoplasm of colon Medications: Changed From apixaban (Eliquis) Take Eliquis 10 mg (two 5 mg tablets) twice daily for 4 more days then Take Eliquis 5 mg 1 tablet twice daily 5 mg PO BID 90 tabs 1RF To apixaban (Eliquis) Take Eliquis 10 mg (two 5 mg tablets) twice daily for 4 more days then Take Eliquis 5 mg 1 tablet twice daily 5 mg PO BID 90 days 180 tabs 1RF Refilled sertraline 50 mg PO DAILY 90 tabs 1RF olanzapine 2.5 mg PO DAILY 90 tabs 1RF aspirin 81 mg PO DAILY 90 tabs 1RF atorvastatin 80 mg PO DAILY 90 tabs 1RF Patient Instructions: - Go to the emergency room immediately for chest pain evaluation. - Restart and take Eliquis as prescribed to prevent blood clots. - Continue taking your prescribed alprazolam and sertraline for anxiety and depression. - Monitor your blood pressure regularly. - Expect a call for a colonoscopy appointment. - Contact the psychiatry office to reschedule your missed appointment.
== END 2025-03-25 15:47 | disposition short-term general hospital (02) ==
LOC: HO.HMCH 14:47
PROVIDERS: PCP Internal Medicine; Visit Provider Physician Assistant Medical
DX: R07.9 Chest pain, unspecified (principal); F31.9 Bipolar disorder, unspecified; I25.2 Old myocardial infarction; I10 Essential (primary) hypertension; E78.00 Pure hypercholesterolemia, unspecified; F41.9 Anxiety disorder, unspecified; F32.A Depression, unspecified; Z12.11 Encounter for screening for malignant neoplasm of colon

== ENCOUNTER → 2025-03-25 14:46 | Outpatient (BNVA) | payer OTHER, SELFPAY | PROVIDERS: PCP Internal Medicine; Visit Provider Physician Assistant Medical ==

== ENCOUNTER 2025-03-25 15:37 | Emergency (ER) | payer OTHER, SELFPAY ==
--- NOTE | ~2025-03-25 | XR_ITS ---
EXAMINATION: XR CHEST CLINICAL INFORMATION: CP COMPARISON: Chest x-ray 07/27/2020 TECHNIQUE: Frontal view of the chest was obtained. FINDINGS: The lungs are expanded without any acute pneumonic process. There is no pleural effusion or pneumothorax. The heart size and poor vascularity is normal. There is mild spondylosis throughout dorsal spine. XR/XR chest 1V IMPRESSION: Unremarkable chest exam. No major change from 07/27/2020. Electronically signed by: Leno Leigh MD 03/25/2025 04:49 PM EDT
--- NOTE | 2025-03-25 15:39 | ECG_ITS ---
Test Reason : CHEST PAIN Blood Pressure : */* mmHG Vent. Rate : 72 BPM Atrial Rate : 72 BPM P-R Int : 164 ms QRS Dur : 98 ms QT Int : 378 ms P-R-T Axes : -9 -24 48 degrees QTcB Int : 413 ms Normal sinus rhythm Moderate voltage criteria for LVH, may be normal variant ( R in aVL , [place] product ) Inferior infarct (cited on or before 06-Aug-2018) Possible Anterior infarct (cited on or before 19-Nov-2021) Abnormal ECG When compared with ECG of 19-Nov-2021 05:54, No significant change was found Referred By: Generic ED Physician Electronically Signed By: NING FLORES MD
[2025-03-25 15:48] VITALS: BP 142/92; PULSE 71; RESP 18; TEMP 36.6; O2SAT 95; BMI 38.5
--- NOTE | 2025-03-25 15:49 | ED_ITS ---
HPI - Chest Pain General Chief Complaint: Chest Pain Stated Complaint: Chest pain, abnormal EKG Time Seen by Provider: 03/25/25 15:49 Source: patient and family Mode of arrival: ambulatory Limitations: no limitations History of Present Illness ED Provider: HPI narrative: 54-year-old with a past medical history significant for myocardial infarction status post stented twice, hypertension, obesity, hypercholesterolemia, bipolar illness, sleep apnea was sent in from PCP's office for concern of ACS, patient reports that he has had ongoing midsternal chest pain sometimes radiating to his right arm, this has been constant not related to any physical activity and present are all times. He states he is supposed to be on multiple medications and ever since he has had an MT 15 years ago when he was not [place] he has not taken any medications including blood thinners, he is on blood thinners for or mental clots. He states that this point he is really interested in restarting his medications and so he went to see his PCP today and PCP noted that he may have T-wave inversion in lateral leads and septal leads and he was sent into the ER. MD complaint: chest pain Pertinent past history: coronary artery disease and prior MT Related Data Previous Rx's ?Medication ?Instructions ?Recorded acetaminophen 325 mg tablet 650 mg (2 x 325 mg) PO Q6H PRN 03/11/24 Pain, Mild (Pain Scale 1-3) #30 tabs docusate sodium 100 mg tablet 100 mg PO DAILY #30 tabs 03/11/24 polyethylene glycol 3350 17 17 g PO BID PRN constipation #850 03/11/24 gram/dose oral powder (Miralax) grams apixaban 5 mg tablet (Eliquis) 5 mg PO BID 90 days #180 tabs 03/25/25 aspirin 81 mg tablet,delayed 81 mg PO DAILY #90 tabs 03/25/25 release atorvastatin 80 mg tablet 80 mg PO DAILY #90 tabs 03/25/25 olanzapine 2.5 mg tablet 2.5 mg PO DAILY #90 tabs 03/25/25 sertraline 50 mg tablet 50 mg PO DAILY #90 tabs 03/25/25 Allergies Allergy/AdvReac Type Severity Reaction Status Date / Time No Known Allergies Allergy Verified 03/25/25 15:50 [No Known Allergies*] Review of Systems 2 Constitutional: Constitutional: Reports as per HPI [facility] Past Medical History Medical History (Updated 03/25/25 @ 19:20 by Carl Tejeda DO) Depression Anxiety History of [place] (myocardial infarction) Chest pain Intermittent chest pain CAD (coronary artery disease) Class 2 severe obesity with body mass index (BMI) of 35 to 39.9 with serious comorbidity Bipolar illness High cholesterol HTN (hypertension) Surgical History Hx of heart artery stent Status post excision of lipoma Family History Family History Father Cancer Mother No problems noted. Family/Other FH: mental illness Mental health disorder Brother No problems noted. Son In good health Daughter In good health Substance use disorder Social History Social History Household Members: Significant Other Housing: House Do you presently have visiting nurse or other home services: No Alcohol intake: never Patient Tobacco Use Status: Never used Tobacco Smoked in Last 30 Days: No e-Cigarette/Vaping Use: Never Used Second Hand Smoke Exposure: No Use of substances other than those prescribed or required for medical reasons: No Advance Directives: No Advance Directives Information Provided: No service: No Current occupational status: disabled Cognitive needs: No Hearing needs: No Vision needs: No Physical Exam 2 Vital Signs: Vital Signs: Last Vital Signs Temp 97.6 F 03/25/25 19:36 Pulse 65 03/25/25 19:36 Resp 16 03/25/25 19:36 BP 139/91 H 03/25/25 19:36 Pulse Ox 97 03/25/25 19:36 O2 Del Method Room Air 03/25/25 19:36 BMI result Body Mass Index 38.5 Const: Other: ? Gen: Overall well-appearing patient ? HEENT: PERRLA, EOMI, MMM, ? Neck: Supple, no LAD ? CV: RRR, no obvious murmurs appreciated ? Resp: No wheezing rales rhonchi no stridor moving air well ? Abd: Bowel sounds are present, no tenderness no rebound no rigidity ? MSK: FROM, strength 5/5 all extremities, no lower extremity edema ? Skin: Warm, dry, intact, ? Neuro: Alert and oriented x3, moving upper and lower extremities symmetrically, no obvious facial asymmetry noted Course Course Course Narrative: This is an RME: Additional HPI, ROS, PE not included below will be deferred to primary provider. RME assessment and note performed by: Shonna Conrad PA-C 54-year-old male with medical history of HTN, prior MT, HLD, sleep apnea, presents to the emergency department due to 2 days of worsening chest pain. States that chest pain trauma so the back and down the left arm. EKG ordered in triage revealed changes from prior. Is not currently taking his Eliquis. Medical Decision Making Medical Decision Making MDM Narrative: As far as ECG changes that were concerning to internal medicine team, he has no EKG changes to suspect underlying ACS, he may have minimal T-wave inversion in aVL and maybe in lead 1, but he has pronounced R-waves and with these reciprocal changes it actually not significantly pronounced as more consistent with LVH and when I looked at his prior ECG in our system there is a similar finding, his V1 V2 leads did not show any ischemic changes or ST depression no ST-elevation, his pain sounds atypical as well, he has had this ongoing constant not related to any activity but just also always present for the past 5 days, we will work him up for ACS, PE, chest x-ray to evaluate for pneumothorax this is unlikely but a consideration, unlikely aortic dissection, has had no forceful vomiting to suspect Boerhaave syndrome, after medical workup is complete patient will follow up with PCP and PCP recommendations he reports he is going to start taking his medications on regular basis. He is nonsmoker nondrinker no drug use at this time. Has had prior history of that. Differential Diagnosis Differential Diagnoses: The differential diagnosis associated with the presentation includes ACS, pneumothorax, aortic dissection, PE, Boerhaave syndrome Lab Data [facility] Lab Attestation statement: I reviewed the patient's lab results. 03/25/25 16:29 03/25/25 16:29 Labs: Lab Results 03/25/25 03/25/25 Range/Units 16:29 19:15 WBC 6.8 (4.8-10.8) X10*3/uL RBC 5.79 (4.60-5.80) X10*6/uL Hgb 15.8 (14.0-18.0) g/dl Hct 47.7 (42.0-52.0) % MCV 82.4 (80.0-98.0) fL MCH 27.3 (27.0-33.0) pg MCHC 33.1 (31.0-36.0) g/dl RDW 14.0 (11.0-16.0) % Plt Count 177 (160-400) X10*3/uL MPV 10.1 (9.4-12.4) fL Immature Gran % (Auto) 0.3 (0.0-0.4) % Neut % (Auto) 50.8 (45-73) % Lymph % (Auto) 41.3 H (20-40) % Bay % (Auto) 7.1 (2-11) % Eos % (Auto) 0.4 (0-4) % Baso % (Auto) 0.1 (0-2) % Lymph # (Auto) 2.8 (1.2-4.9) X10*3/uL Bay # (Auto) 0.5 (0.1-1.2) X10*3/uL Eos # (Auto) 0.0 (0.0-0.4) X10*3/uL Baso # (Auto) 0.0 (0.0-0.2) X10*3/uL Abs Immat Gran (auto) 0.02 (0.00-0.03) X10*3/uL Absolute Neuts (auto) 3.4 (2.0-8.3) x10*3/uL Absolute Nucleated RBC 0.000 (0.0-0.012) X10*3/uL Nucleated RBC % (auto) 0.0 (0.0-0.2) /100WBC PT 11.0 (10.9-12.4) SEC INR 1.0 (0.9-1.1) APTT 27.3 (26.0-36.8) SEC D-Dimer High Sensitivty < 150 NG/ML Sodium 142 (135-145) mmol/L Potassium 5.0 (3.3-5.1) mmol/L Chloride 108 (96-108) mmol/L Carbon Dioxide 26 (22-29) mmol/L Anion Gap 13 (12-20) BUN 14 (9-16) mg/dL Creatinine 0.96 (0.5-1.4) mg/dL Estim Creat Clear Calc 118.4 Estimated GFR > 60 Random Glucose 90 (60-115) mg/dL Calcium 9.5 (8.4-10.2) mg/dL Magnesium 1.9 (1.6-2.6) mg/dL Total Bilirubin 0.7 (0.0-1.0) mg/dL Direct Bilirubin 0.1 (0.0-0.5) mg/dL AST 46 H (5-37) U/L ALT 48 H (0-40) U/L Alkaline Phosphatase 99 (39-117) U/L Troponin I High Sens 6.4 9.3 (<3.5-35.0) ng/L Total Protein 7.7 (6.5-8.0) g/dL Albumin 4.4 (3.5-5.0) g/dL Lipase 17 (8-78) U/L Influenza Type A (PCR) NEGATIVE (Negative) Influenza Type B (PCR) NEGATIVE (Negative) RSV RNA Qual (PCR) NEGATIVE (Negative) SARS-CoV-2 RNA (RT-PCR) NEGATIVE (Negative) Independent Interpretation I performed an independent interpretation of an: EKG (72 , just compared to prior, LVH no ST-T elevation or depression my independent interpretation) Independent Historian Clinical information obtained from an independent historian. History obtained from or confirmed by: Spouse External Record Review External record reviewed: Primary care record Tests considered The following testing was considered but not selected: CTA Chronic Conditions Patient?s care impacted by: Hypertension Discharge Plan Discharge Clinical Impression: Chest pain, precordial, Hx of medication noncompliance Patient Disposition: Home, Self-Care Additional Instructions: Diagnosis and Initial Evaluation: You have been evaluated in the Emergency Department (ED) for chest pain. Based on your clinical assessment, electrocardiogram (ECG), and high-sensitivity cardiac troponin (hs-cTn) levels, you have been classified as low-risk for acute coronary syndrome (ACS) and myocardial infarction (MT). This means that your likelihood of having a heart attack or other serious heart condition in the next 30 days is very low. I have also obtain special blood work as discussed to make sure you do not have any blood clots, that blood work has been unremarkable, your chest x-ray reassuring, please make sure to take your medications regular basis, your EKG had changes consistent with left ventricular hypertrophy that is not a new EKG finding for you, follow up with the PCP. Follow-Up Care: ? Primary Care Provider (PCP) or Nailing Machine Feeder: It is important to follow up with your primary care provider or long wall shear operator within the next 14 to 30 days. This follow-up is crucial to ensure that any underlying conditions are managed appropriately and to discuss any further testing that may be needed. ? Notification: If you have an established PCP or long wall shear operator, they have been notified of your ED visit to facilitate continuity of care. Self-Care and Monitoring: ? Medications: Continue taking any prescribed medications as directed. If you have been given new medications, ensure you understand how and when to take them. ? Activity: Resume normal activities as tolerated. Avoid strenuous activities until you have discussed them with your healthcare provider. ? Diet: Maintain a heart-healthy diet, low in saturated fats, cholesterol, and sodium. Red Flags: Seek immediate medical attention if you experience any of the following: ? New or worsening chest pain ? Shortness of breath ? Dizziness or fainting ? Pain radiating to your arm, neck, or jaw ? Sweating, nausea, or vomiting Additional Testing: In some cases, outpatient testing such as a stress test or imaging may be recommended to further evaluate your heart health. Your follow-up provider will discuss this with you if necessary. Mental Health: Anxiety and stress can contribute to chest pain. Consider discussing any concerns with your healthcare provider, who may recommend screening for anxiety or depression and appropriate management strategies. Contact Information: If you have any questions or concerns before your follow-up appointment, please contact your healthcare provider or the ED where you were evaluated. Summary: You have been discharged from the ED with a low risk of serious heart conditions. Follow the instructions above, attend your follow-up appointments, and seek immediate care if you experience any red flags. Prescriptions: No Action acetaminophen 325 mg tablet 650 mg PO Q6H PRN (Reason: Pain, Mild (Pain Scale 1-3)) Qty: 30 0RF docusate sodium 100 mg tablet 100 mg PO DAILY Qty: 30 0RF polyethylene glycol 3350 [Miralax] 17 gram/dose powder 17 g PO BID PRN (Reason: constipation) Qty: 850 2RF sertraline 50 mg tablet 50 mg PO DAILY Qty: 90 1RF olanzapine 2.5 mg tablet 2.5 mg PO DAILY Qty: 90 1RF aspirin 81 mg tablet,delayed release (DR/EC) 81 mg PO DAILY Qty: 90 1RF Eliquis 5 mg tablet 5 mg PO BID 90 Days Qty: 180 1RF Rx Instructions: Take Eliquis 10 mg (two 5 mg tablets) twice daily for 4 more days then Take Eliquis 5 mg 1 tablet twice daily atorvastatin 80 mg tablet 80 mg PO DAILY Qty: 90 1RF Referrals: Ray [place] MD [Primary Care Provider] - Print Language: Korean
[2025-03-25 16:02] VITALS: PULSE 70
[2025-03-25 16:03] VITALS: BP 150/100; PULSE 72; RESP 15; TEMP 36.9; O2SAT 97
[2025-03-25 16:33] LABS: MANUAL DIFF FLAG NO
[2025-03-25 16:35] LABS: Basophils Percent Auto 0.1 % (0-2); Eosinophils Percent Auto 0.4 % (0-4); Hematocrit 47.7 % (42.0-52.0); Hemoglobin 15.8 g/dl (14.0-18.0); Imm Gran Abs Auto 0.02 X10*3/uL (0.00-0.03); Imm Gran Pct Auto 0.3 % (0.0-0.4); Lymphocytes Absolute Auto 2.8 X10*3/uL (1.2-4.9); Lymphocytes Percent Auto 41.3 % (20-40); Mean Corpuscular HGB Conc 33.1 g/dl (31.0-36.0); Mean Corpuscular Hemoglobin 27.3 pg (27.0-33.0); Mean Corpuscular Volume 82.4 fL (80.0-98.0); Mean Platelet Volume 10.1 fL (9.4-12.4); Monocytes Absolute Auto 0.5 X10*3/uL (0.1-1.2); Monocytes Percent Auto 7.1 % (2-11); Neutrophils Absolute Auto 3.4 x10*3/uL (2.0-8.3); Neutrophils Percent Auto 50.8 % (45-73); Platelet Count 177 X10*3/uL (160-400); Red Blood Count 5.79 X10*6/uL (4.60-5.80); White Blood Count 6.8 X10*3/uL (4.8-10.8)
[2025-03-25 16:55] LABS: Alanine Aminotransferase 48 U/L (0-40); Albumin Level 4.4 g/dL (3.5-5.0); Alkaline Phosphatase 99 U/L (39-117); Anion Gap 13 (12-20); Aspartate Amino Transferase 46 U/L (5-37); Bilirubin Direct 0.1 mg/dL (0.0-0.5); Bilirubin Total 0.7 mg/dL (0.0-1.0); Blood Urea Nitrogen 14 mg/dL (9-16); Calcium 9.5 mg/dL (8.4-10.2); Carbon Dioxide 26 mmol/L (22-29); Chloride 108 mmol/L (96-108); Creatinine Clr Calc Pharmacy 118.4; Estimated Glomerular Filt Rate > 60; Glucose Random 90 mg/dL (60-115); Lipase 17 U/L (8-78); Magnesium 1.9 mg/dL (1.6-2.6); Sodium 142 mmol/L (135-145); Total Protein 7.7 g/dL (6.5-8.0)
[2025-03-25 16:59] LABS: Partial Thromboplastin Time 27.3 SEC (26.0-36.8)
[2025-03-25 17:02] LABS: Troponin-I High Sensitivity 6.4 ng/L (<3.5-35.0)
[2025-03-25 17:13] LABS: Influenza A PCR NEGATIVE (Negative); Influenza B PCR NEGATIVE (Negative); Resp Syncy Virus RNA Qual PCR NEGATIVE (Negative); SARS COV2 PCR INHOUSE NEGATIVE (Negative)
[2025-03-25 17:44] LABS: D Dimer High Sensitivity < 150 NG/ML
[2025-03-25 19:36] VITALS: BP 139/91; PULSE 65; RESP 16; TEMP 36.4; O2SAT 97
[2025-03-25 19:41] LABS: Troponin-I High Sensitivity 9.3 ng/L (<3.5-35.0)
--- NOTE | 2025-03-25 19:43 | MHC.EDTECH ---
This pct assumed care of Patient at 1845 ,vitals taken ,Patient in great sprits ,watching television ,Patient family member at bedside .
[2025-03-25 20:10] VITALS: BP 139/91; PULSE 65; RESP 16; TEMP 36.4; O2SAT 97
== END 2025-03-25 20:20 | disposition home or self-care (01) ==
PROVIDERS: Physician Assistant Medical; Emergency Provider Emergency Medicine; PCP Internal Medicine
DX: R07.89 Other chest pain (principal); R94.31 Abnormal electrocardiogram [ECG] [EKG]; M79.601 Pain in right arm; I25.10 Atherosclerotic heart disease of native coronary artery without angina pectoris; M54.50 Low back pain, unspecified; Z91.148 Patient's other noncompliance with medication regimen for other reason; Z03.818 Encounter for observation for suspected exposure to other biological agents ruled out; Z79.899 Other long term (current) drug therapy
CPT/HCPCS: 0241U; 36415; 71045; 80048; 80076; 83690; 83735; 84484; 85025; 85379; 85610; 85730; 93005; 96127; 99212; 99283; 99285

== ENCOUNTER → 2025-03-25 15:39 | Outpatient (BNV) | payer OTHER, SELFPAY | PROVIDERS: Emergency Provider Emergency Medicine; PCP Internal Medicine; Visit Provider Internal Medicine Cardiovascular Disease | DX: I25.2 Old myocardial infarction (principal) | CPT/HCPCS: 93010 ==

== ENCOUNTER → 2025-03-25 15:50 | Outpatient (BNV) | payer OTHER, SELFPAY | PROVIDERS: Emergency Provider Emergency Medicine; PCP Internal Medicine; Visit Provider Radiology Diagnostic Radiology | DX: R07.9 Chest pain, unspecified (principal) | CPT/HCPCS: 71045 ==

== ENCOUNTER 2025-06-23 10:53 | Outpatient (AMB) | payer OTHER, SELFPAY ==
--- OUTSIDE RECORDS SUMMARY | 2024-10-08 05:30 | XMS_ITS ---
Author Organization [facility] Address [address] [facility] [place] [address] Care Team Providers Care Driller Machine Name Role Phone Ray Porter Primary Care Provider Sweta Aguilera [phone] Encounters Encounter Location Date Provider Diagnosis [address] [address] 10/08/2024 Sweta Aguilera Plan Of Treatment No Information Progress Notes * Yomi PONCE EDOB:1970 (55 yo M)Acc No.[id number]:10/08/2024 Progress Notes Patient: Yomi RODRIGUEZ Provider: Leta Aguilera DPM :1970 A ge:54 Y S ex:Male Date:10/08/2024 Address:[address], [place] Pcp:Ray Porter Subjective: * Chief Complaints: * [...] 12/09/2023 Generated for Romulo eden/Tucker/Iselaitting on: 0 06/23/2025 11:48 AM EDT
--- OUTSIDE RECORDS SUMMARY | 2024-10-20 07:00 | XMS_ITS ---
Author Organization [facility] Address [address] [facility] [address] Care Team Providers Care Toxicology Supervisor Name Role Phone Ray Porter Primary Care Provider Sweta Aguilera Unavailable [phone] Riki Mehta [phone] Encounters Encounter Location Date Provider Diagnosis [address] [place] [address] 10/20/2024 Riki Mehta Plan Of Treatment No Information Progress Notes * Yomi CAREY EDOB:1970 (55 yo M)Acc No.[id number]:10/20/2024 Progress Notes Patient: Yomi RODRIGUEZ Provider: Emmanuel Mehta D.P.M. :1970 A ge:54 Y S ex:Male Date:10/20/2024 [address] Pcp:Ray Porter Subjective: * Chief Complaints: * * Medical History: Objective: * Vitals: Assessment: Plan: * Treatment: * Images: * The named appointment provid er may or may not be the originator of this progress note, and it is not deemed complete until electronically signed by the appointment provider. Sign off status: Pending * Provider: Emmanuel Mehta D.P.M. Date: 1 12/21/2023 Generated for Romulo eden/Tucker/eTnazariosmitting on: 0 06/23/2025 11:47 AM EDT
--- OUTSIDE RECORDS SUMMARY | 2024-11-26 05:30 | XMS_ITS ---
Author Organization [facility] Address [address] [place] [address] Care Team Providers Care Ultrasound Tester Name Role Phone Ray Porter Primary Care Provider [phone] Sweta Aguilera Unavailable [phone] Riki Mehta [phone] Encounters Encounter Location Date Provider Diagnosis [address] [place] [address] 11/26/2024 Riki Mehta Plan Of Treatment No Information Progress Notes * Yomi CAREY EDOB:1970 (55 yo M)Acc No.[id number]:11/26/2024 Progress Notes Patient: Yomi RODRIGUEZ Provider: Emmanuel Mehta D.P.M. :1970 A ge:54 Y S ex:Male Date:11/26/2024 Address[address] [place] Pcp:Ray Porter Subjective: * Chief Complaints: * * Medical History: Objective: * Vitals: Assessment: Plan: * Treatment: * Images: * The named appointment provid er may or may not be the originator of this progress note, and it is not deemed complete until electronically signed by the appointment provider. Sign off status: Pending * Provider: Emmanuel Mehta D.P.M. Date: 0 11/26/2024 Generated for Romulo eden/Tucker/eTnazariosmitting on: 0 06/23/2025 11:47 AM EDT
--- NOTE | 2025-06-23 11:00 | A.OFFPC_ITS ---
Vital Signs 06/23/25 11:03 Height 5 ft 11 in Weight 276 lb 6 oz BMI 38.5 BP 130/78 Blood Pressure Location Lt brachial Position Sitting Pulse 68 Pulse Source Pulse Oximeter Temp 97.1 F Temp Source Temporal Artery Scan Pulse Oximetry (%) 96 Oxygen Delivery Method Room Air Intake Visit Reasons: follow up Intake Note: Patient is here to follow up on HTN, Hypercholesterolemia. Asphalt Machine Operator Required: No Ink Maker: Not Required per policy Accompanied by: Self / Same As Patient Allergies No Known Allergies (No Known Allergies*) Allergy (Verified 06/23/25 11:02) Tobacco use date assessed: 06/23/25 Dental Screening Dental Screen Date: 03/25/25 ON LICENSE OF [facility] Medical History (Updated 03/26/25 @ 00:01 by Liv Mgcuire) Depression Anxiety History of [place] (myocardial infarction) Chest pain Intermittent chest pain CAD (coronary artery disease) Class 2 severe obesity with body mass index (BMI) of 35 to 39.9 with serious comorbidity Bipolar illness High cholesterol HTN (hypertension) Surgical History Hx of heart artery stent Status post excision of lipoma Family History Father Cancer Mother No problems noted. Family/Other FH: mental illness Mental health disorder Brother No problems noted. Son In good health Daughter In good health Substance use disorder Social History Household Members: Significant Other Housing: House Do you presently have visiting nurse or other home services: No Alcohol intake: never Patient Tobacco Use Status: Never used Tobacco e-Cigarette/Vaping Use: Never Used Second Hand Smoke Exposure: No service: No Current occupational status: disabled Cognitive needs: No Hearing needs: No Vision needs: No Questionnaire PHQ-9 Over the last 2 weeks, how often have you been bothered by any of the following problems? 1. Little interest or pleasure in doing things: not at all 2. Feeling down, depressed, or hopeless: not at all 3. Trouble falling or staying asleep, or sleeping too much: not at all 4. Feeling tired or having little energy: not at all 5. Poor appetite or overeating: several days 6. Feeling bad about yourself - or that you are a failure or have let yourself or your family down: several days 7. Trouble concentrating on things, such as reading the newspaper or watching television: more than half the days 8. Moving or speaking so slowly that other people could have noticed. Or the opposite - being so fidgety or restless that you have been moving around a lot more than usual: several days 9. Thoughts that you would be better off or of hurting yourself in some way: not at all Total score: 5 Depression Screening Interpretation: Positive Depression Screening Done: Yes Source: Developed by Drs. Blair Mercado, Melissa Driscoll, [employer] and colleagues, with an educational bill from [employer]. Thrive Questionnaire Date Thrive assessed: 03/25/25 I am a: Patient What is your living situation today?: I have a steady place to live Within the past 12 months, did the food you bought not last and you didn't have the money to get more?: Never true Within the past 12 months, did you worry whether your food would run out before you got money to buy more?: Never true Do you have trouble paying for medicines?: No Do you have trouble getting transportation to medical appointments?: No Do you have trouble paying your heating and electricity bill?: No Do you have trouble taking care of your child, family member or friend?: No Do you have trouble with day-to-day activities such as bathing, preparing meals, shopping, managing finances, etc.?: No Are you currently unemployed and looking for a job?: Yes Are you interested in more education?: Yes Please select the resources that you would like help with: None Currently or been in a relationship where the following occur: No concerns reported THRIVE Score: 0 AUDIT C Alcohol Use Questionnaire (AUDIT-C) 1. How often do you have a drink containing alcohol?: Never Total Score: 0 TANO-7 AMB Questionnaire TANO-7 Date TANO - 7 assessed: 06/23/25 Feeling nervous, anxious, or on edge: 0 = Not at all Not being able to stop or control worryin = More than half the days Worrying too much about different things: 2 = More than half the days Trouble relaxin = More than half the days Being so restless that it is hard to sit still: 2 = More than half the days Becoming easily annoyed or irritable: 0 = Not at all Feeling afraid as if something awful might happen: 0 = Not at all Total TANO-7 score (0-4 normal; 5-9 mild; 10-14 moderate; 15-21 severe): 8 Source: Developed by Drs. Blair Mercado, Melissa Driscoll, [employer] and colleagues, with an educational bill from [employer]. Physical exam (Primary Care) Vital Signs: Last Vital Signs Temp 97.1 F 06/23/25 11:03 Pulse 68 06/23/25 11:03 BP 130/78 06/23/25 11:03 Pulse Ox 96 06/23/25 11:03 Oxygen Delivery Method Room Air 06/23/25 11:03 BMI result Body Mass Index 38.5 Tobacco/Smoking Status: Tobacco use Status Tobacco use date assessed 06/23/25 06/23/25 11:08 Patient Tobacco Use Status Never used Tobacco 06/23/25 11:08 e-Cigarette/Vaping Use Never Used 06/23/25 11:08 PHQ-9: PHQ-9 Score PHQ-9: Total score 5 06/23/25 11:08 Depression Screening Interpretation: Positive Thrive Assessment: Date of Thrive Assessment Date Thrive assessed 03/25/25 06/23/25 11:08 Currently or been in a relationship where the following occur: No concerns reported Coding Level of Care Code Est Pt Level 4 (64877) Complex EM visit Add On G2211 Diagnoses Bipolar illness F31.9 Lipoma D17.9 Assessment & Plan Assessment & Plan (1) Bipolar illness: Code(s): F31.9 - Bipolar disorder, unspecified Category: Medical Plan: History of Present Illness - The patient is a 55-year-old male presenting for a physical examination and assistance with documentation for Social Security and a day program. - Bipolar disorder: The patient has a history of bipolar disorder and has stopped taking prescribed medications due to perceived side effects. - Hypertension: The patient has a history of hypertension but is not currently taking antihypertensive medications. - Medication adherence: The patient has medications at home but has not been taking them regularly, as advised by his counselor. - Social history: The patient plans to return to the gym next week and has been cooking for himself, indicating some level of self-sufficiency. Social History - Exercise: The patient plans to return to the gym next week. - Nutrition: The patient has been cooking for himself and eating a lot, suggesting a focus on self-prepared meals. Review of Systems - General: Reports feeling hyped up and under pressure. - Psychiatric: Reports stopping medications for bipolar disorder due to side effects. Physical Exam General: Cooperative and healthy appearing Nutritional Appearance: Well nourished Orientation/consciousness: Patient oriented x3 Limitations: No limitations Head: Normal to inspection General: Appearance normal, both eyes and all related structures Neck: Normal visual inspection Chest: Normal palpation of entire chest wall Respiratory: No abnormalities detected during breathing assessment. ormal respiratory effort Neurology: Patient oriented x3, no neurological deficits noted. Results Plan 1. Bipolar Disorder - The patient is advised to restart medications for bipolar disorder as previously prescribed. - The patient is on a waiting list for psychiatric evaluation. 2. Hypertension - The patient is advised to resume antihypertensive medications. Discussion Notes I discussed with the patient the importance of restarting his medications for bipolar disorder and hypertension to manage his conditions effectively. I also provided letters for Social Security and the day program as requested. Patient Instructions - Restart all prescribed medications for bipolar disorder and hypertension. - Attend the day program and follow up with Social Security using the provided letters. - Return to the gym as planned to maintain physical activity. (2) Lipoma: Code(s): D17.9 - Benign lipomatous neoplasm, unspecified Plan: Gen Surgery appt given Orders: Referrals General Surgery Referral D17.9 - Benign lipomatous neoplasm, unspecified
[2025-06-23 11:03] VITALS: BP 130/78; PULSE 68; TEMP 36.2; O2SAT 96; BMI 38.5
--- OUTSIDE RECORDS SUMMARY | 2025-06-23 11:47 | XMS_ITS | Clinical Summary ---
Author Organization [employer] Address [address] [place] [address] Care Team Providers Care Manpower Development Specialist Manager Name Role Phone Unavailable Primary Care Provider Unavailabl e Active Problems Problem Noted Date Diagnosed Date Substance use disorder 06/16/2025 Encounters * This document contains information received from the source organization and may not represent a complete record from that organization. Date Type Department Care Team Description 06/22/2025 Patient Outreach [facility] [address] [place] [id number] James Duran Recovery Supports 06/18/2025 Patient Outreach [address] [phone] Alex Barreto Recovery Supports 06/18/2025 Patient Outreach [address] [id number] Alex Barreto Recovery Supports 06/17/2025 Patient Outreach [address] [address] James Duran Recovery Supports 06/16/2025 10:00 AM EDT Office Visit [address] [address] Sánchez Nash MD Substance use disorder (Primary Dx) 06/16/2025 Travel 06/15/2025 Patient Outreach [facility] [address] [place] [id number] James Duran Recovery Supports 06/15/2025 Patient Outreach [address] [phone] Lamin Mabry RC Recovery Supports 06/14/2025 Patient Outreach [address] [address] Oli Joaquin RC Recovery Supports 06/10/2025 Patient Outreach [address] [address] Estevan, Alex RC Recovery Supports 06/07/2025 Patient Outreach [facility] [address] [place] [address] Oli Joaquin RC Recovery Supports 04/29/2025 Patient Outreach [facility] [address] [place] [address] Solomon English RC Recovery Supports 04/02/2025 Patient Outreach [facility] [address] [place] [address] Lamin Mabry RC Recovery Supports 03/30/2025 Patient Outreach [facility] [address] [place], [place] [phone] James Duran RC Recovery Supports from Last 3 Months Social [...] Vaccines (1 of 2) 2020 COVID-19 Vaccine ( - 2023-2 5 season) 2024 Influenza Vaccine (#1) 2025 RSV Patients and Pa tients Aged 60 [...] patient's age to complete this topic Insurance [facility] ONE CARE < 65 [facility]
--- OUTSIDE RECORDS SUMMARY | 2025-06-23 11:48 | XMS_ITS | Encounter Summary ---
Author Organization [employer] Address [address] [facility] 7t [place] [address] Care Team Providers Care Solar Project Engineer Name Role Phone Unavailable Primary Care Provider Unavailabl e Reason for Visit * Reason Comments Recovery Supports Encounter Details Date Type Department Care Team (Late st Contact Info) Description 06/22/2025 Patient Outreach [facility] MEDICINE [address] [place] [address] James Duran Recovery Supports Social History Tobacco Use Types Packs/Day Years Used Date Smoking Tobacco: Never Assessed Sex and Gender Information Value Date Recorded Sex Assigned at Male 11/01/2023 12:12 PM EST Legal Sex Male 8:14 AM EDT Gender Identity Male 11/01/2023 12:12 PM EST Sexual Orientation Straight 11/01/2023 12 :12 PM EST documented as of this encounter Progress Notes * James Duran - 06/22/2025 3:55 PM EDT I met with Yomi today. Setting: in person at [facility] Recovery Wellness Goals worked on: Social Stability Action taken/next steps: Attended alcohol and drug free activity Additional comments: Jamse Duran documented in this encounter Plan of Treatment Not on file documented as of this encounter Visit Diagnoses Not on filedocumented in this encounter
--- OUTSIDE RECORDS SUMMARY | 2025-06-23 11:48 | XMS_ITS | Patient Health Record ---
Author Organization [facility] Address [address] [place] [address] Care Team Providers Care Cna Caregiver Name Role Phone Ray Porter Primary Care Provider Sweta Aguilera Unavailable [phone] Riki Mehta Unavailable [phone] Reason For Referral No Information Encounters Encounter Location Date Provider Diagnosis [place] [address] [address] 10/01/[address] [address] 10/12/[address] [address] 11/18/2024 Sweta Aguilera Plan Of Treatment No Information Insurance Providers Payer Name Payer Address Payer Phone Subscriber Number Group Number Insured Name Patient Relationship to Insured Coverage Start Date Coverage End Date [facility] [employer] Claims [address] [place] [id number] Yomi Ponce Self - patient is the insured
--- OUTSIDE RECORDS SUMMARY | 2025-06-23 11:48 | XMS_ITS | Encounter Summary ---
Author Organization [employer] Address [address] [facility] 7t [place] [address] Care Team Providers Care Filling And Packing Supervisor Name Role Phone Unavailable Primary Care Provider Unavailabl e Reason for Visit * Reason Comments [facility] Recovery Supports Encounter Details Date Type Department Care Team (Late st Contact Info) Description 06/18/2025 Patient Outreach [facility] MEDICINE [address] [place], [place] [phone] Alex Barreto Recovery Supports Social History Tobacco Use Types Packs/Day Years Used Date Smoking Tobacco: Never Assessed Sex and Gender Information Value Date Recorded Sex Assigned at Male 11/01/2023 12:12 PM EST Legal Sex Male 8:14 AM EDT Gender Identity Male 11/01/2023 12:12 PM EST Sexual Orientation Straight 11/01/2023 12 :12 PM EST documented as of this encounter Progress Notes * Alex Barreto - 06/18/2025 10:41 AM EDT I met with Yomi today. Setting: in person at [facility] Recovery Wellness Goals worked on: Social Stability Action taken/next steps: Attended alcohol and drug free activity Additional comments: Alex Barreto documented in this encounter Plan of Treatment Not on file documented as of this encounter Visit Diagnoses Not on filedocumented in this encounter
--- OUTSIDE RECORDS SUMMARY | 2025-06-23 11:48 | XMS_ITS | Encounter Summary ---
Author Organization [employer] Address [address] [facility] 7t [place] [address] Care Team Providers Care Branch Associate Name Role Phone Unavailable Primary Care Provider Unavailabl e Reason for Visit * Reason Comments [facility] Recovery Supports Encounter Details Date Type Department Care Team (Late st Contact Info) Description 06/18/2025 Patient Outreach [facility] MEDICINE [address] [place], [place] [id number] Alex Barreto Recovery Supports Social History Tobacco [...] Progress Notes * Alex Barreto - 06/18/2025 3:20 PM EDT I met with Yomi today. Setting: in person at [facility] Recovery Wellness Goals worked on: Social Stability Action taken/next steps: Attended alcohol and drug free activity Additional comments: Alex Barreto documented in this encounter Plan of Treatment Not on file documented as of this encounter Visit Diagnoses Not on filedocumented in this encounter
== END 2025-06-23 11:49 | disposition home or self-care (01) ==
LOC: HO.HMCH 10:54
PROVIDERS: PCP Internal Medicine; Visit Provider Internal Medicine
DX: F31.9 Bipolar disorder, unspecified (principal); D17.9 Benign lipomatous neoplasm, unspecified

== ENCOUNTER → 2025-06-23 10:53 | Outpatient (BNVA) | payer OTHER, SELFPAY | PROVIDERS: PCP Internal Medicine; Visit Provider Internal Medicine | DX: Z00.00 Encounter for general adult medical examination without abnormal findings (principal); I10 Essential (primary) hypertension; F31.9 Bipolar disorder, unspecified; D17.9 Benign lipomatous neoplasm, unspecified; E78.00 Pure hypercholesterolemia, unspecified | CPT/HCPCS: 99212 ==

== ENCOUNTER 2025-07-06 10:59 | Outpatient (REF) | payer OTHER, SELFPAY ==
--- OUTSIDE RECORDS SUMMARY | 2024-06-18 06:30 | XMS_ITS ---
Author Organization [facility] Address [address] [place] [address] Care Team Providers Care Manager Payroll Name Role Phone Ray Porter Primary Care Provider Sweta Aguilera [phone] Encounters Encounter Location Date Provider Diagnosis [address] [address] 06/18/2024 Sweta Aguilera Plan Of Treatment No Information Progress Notes * Yomi PONCE EDOB:1970 (55 yo M)Acc No.[id number]:06/18/2024 Progress Notes Patient: Yomi RODRIGUEZ Provider: Leta Aguilera DPM :1970 A ge:54 Y S ex:Male Date:06/18/2024 Address:[address], [place] Pcp:Ray Porter Subjective: * Chief Complaints: * * Medical History: Objective: * Vitals: Assessment: Plan: * Treatment: * Images: * The named appointment provid er may or may not be the originator of this progress note, and it is not deemed complete until electronically signed by the appointment provider. Sign off status: Pending * Provider: Leta Aguilera DPM Date: 06/18/2024 Generated for Romulo eden/Tucker/Iselaitting on: 07/06/2025 01:19 PM EDT
--- OUTSIDE RECORDS SUMMARY | 2024-10-08 05:30 | XMS_ITS ---
Author Organization [facility] Address [address] [place] [address] Care Team Providers Care Box Printing Machine Operator Name Role Phone Ray Porter Primary Care Provider Sweta Aguilera [phone] Encounters Encounter Location Date Provider Diagnosis [address] [address] 10/08/2024 Sweta Aguilera Plan Of Treatment No Information Progress Notes * PONCE Yomi EDOB:1970 (55 yo M)Acc No.[id number]:10/08/2024 Progress Notes Patient: Yomi RODRIGUEZ Provider: Leta Aguilera DPM :1970 A ge:54 Y S ex:Male Date:10/08/2024 Address:[address], [place] Pcp:Ray Porter Subjective: * Chief Complaints: * * Medical History: Objective: * Vitals: Assessment: Plan: * Treatment: * Images: * The named appointment provid er may or may not be the originator of this progress note, and it is not deemed complete until electronically signed by the appointment provider. Sign off status: Pending * Provider: Leta Aguilera DPM Date: 1 12/09/2023 Generated for Romulo eden/Tucker/Iselaitting on: 0 07/06/2025 01:20 PM EDT
--- OUTSIDE RECORDS SUMMARY | 2024-10-20 07:00 | XMS_ITS ---
Author Organization [facility] Address [address] [place] [address] Care Team Providers Care Supervisor Sintering Plant Name Role Phone Ray Porter Primary Care Provider Sweta Aguilera Unavailable [phone] Riki Mehta [phone] Encounters Encounter Location Date Provider Diagnosis [address] [place] [address] 10/20/2024 Riki Mehta Plan Of Treatment No Information Progress Notes * Yomi CAREY EDOB:1970 (55 yo M)Acc No.[id number]:10/20/2024 Progress Notes Patient: Yomi RODRIGUEZ Provider: Emmanuel Mehta D.P.M. :1970 A ge:54 Y S ex:Male Date:10/20/2024 Address[address] [place] Pcp:Ray Porter Subjective: * Chief Complaints: * [...] Date: 12/21/2023 Generated for Romulo eden/Tucker/eTnazariosmitting on: 0 07/06/2025 01:19 PM EDT
--- OUTSIDE RECORDS SUMMARY | 2024-11-26 05:30 | XMS_ITS ---
Author Organization [facility] Address [address] [place] [address] Care Team Providers Care Eyelet Riveter Name Role Phone Ray Porter Primary Care Provider Sweta Aguilera Unavailable [phone] Riki Mehta [phone] Encounters Encounter Location Date Provider Diagnosis [address] [place] [address] 11/26/2024 Riki Mehta Plan Of Treatment No Information Progress Notes * Yomi CAREY EDOB:1970 (55 yo M)Acc No.[id number]:11/26/2024 Progress Notes Patient: Yomi RODRIGUEZ Provider: Emmanuel Mehta D.P.M. :1970 A ge:54 Y S ex:Male Date:11/26/2024 Address[address] [place] Pcp:Ray Porter Subjective: * Chief Complaints: * [...] 11/26/2024 Generated for Romulo eden/Tucker/eTnazariosmitting on: 0 07/06/2025 01:18 PM EDT
--- OUTSIDE RECORDS SUMMARY | 2025-07-06 13:19 | XMS_ITS | Clinical Summary ---
Author Organization [employer] Address [address] [facility] 7t [place] [address] Care Team Providers Care Licensed Master Social Worker Name Role Phone Unavailable Primary Care Provider Unavailabl e Active Problems Problem Noted Date Diagnosed Date Substance use disorder 06/16/2025 Encounters * This document contains information received from the source organization and may not represent a complete record from that organization. Date Type Department Care Team Description 06/22/2025 Patient Outreach [facility] MEDICINE [address] [place] [address] James Duran Recovery Supports 06/18/2025 Patient Outreach [address] [address] Alex Barreto Recovery Supports 06/18/2025 Patient Outreach [address] [address] Alex Barreto Recovery Supports 06/17/2025 Patient Outreach [address] [address] James Duran Recovery Supports 06/16/2025 10:00 AM EDT Office Visit [address] [address] Sánchez Nash MD Substance use disorder (Primary Dx) 06/16/2025 Travel 06/15/2025 Patient Outreach [facility] MEDICINE [address] [place] [address] James Duran Recovery Supports 06/15/2025 Patient Outreach [address] [address] Lamin Mabry RC Recovery Supports 06/14/2025 Patient Outreach [address] [address] Oli Joaquin RC Recovery Supports 06/10/2025 Patient Outreach [address] [address] [place], Alex RC Recovery Supports 06/07/2025 Patient Outreach [facility] MEDICINE [address] [place] [address] Oli Joaquin RC Recovery Supports 04/29/2025 Patient Outreach [facility] MEDICINE [address] [place] [address] Solomon English RC Recovery Supports from Last 3 Months [...] COVID-19 Vaccine (1 - 2023-2 5 season) 2025 Influenza Vaccine (#1) 2025 RSV Patients and [...] patient's age to complete this topic Insurance [facility] ONE CARE < 65 [place] [id number] [facility]
--- OUTSIDE RECORDS SUMMARY | 2025-07-06 13:20 | XMS_ITS | Patient Health Record ---
Author Organization [facility] Address [address] [place] [address] Care Team Providers Care In Room Dining Server Name Role Phone Ray Porter Primary Care Provider [phone] Sweta Aguilera Unavailable [phone] Riki Mehta Unavailable [phone] Reason For Referral No Information Encounters Encounter Location Date Provider Diagnosis [place] [address] [address] 10/01/[address] [address] 10/12/[address] [address] 11/18/2024 Sweta Aguilera Plan Of Treatment No Information Insurance Providers Payer Name Payer Address Payer Phone Subscriber Number Group Number Insured Name Patient Relationship to Insured Coverage Start Date Coverage End Date [facility] [employer] Claims [address] [place] [id number] Yomi Ponce Self - patient is the insured
[2025-07-09 17:53] LABS: TS Negative Control Passed; TS Panel A 0; TS Panel B 0; TS Positive Control Passed; TSpotTB Negative (Negative)
== END 2025-07-06 11:00 | disposition home or self-care (01) ==
LOC: HO.LAB 10:59
PROVIDERS: PCP Internal Medicine; Visit Provider Internal Medicine
DX: Z02.0 Encounter for examination for admission to educational institution (principal); Z11.1 Encounter for screening for respiratory tuberculosis
CPT/HCPCS: 36415; 86481

== ENCOUNTER 2025-08-18 09:05 | Outpatient (AMB) | payer OTHER, SELFPAY ==
--- OUTSIDE RECORDS SUMMARY | 2024-06-18 06:30 | XMS_ITS ---
Author Organization [facility] Address [address] [place] [address] Care Team Providers Care Copy Preparer Name Role Phone Ray Porter Primary Care Provider [phone] Sweta Aguilera [phone] Encounters Encounter Location Date Provider Diagnosis [address] [address] 06/18/2024 Sweta Aguilera Plan Of Treatment No Information Progress Notes * Yomi PONCE EDOB:1970 (55 yo M)Acc No.[id number]:06/18/2024 Progress Notes Patient: Yomi RODRIGUEZ Provider: Leta Aguilera DPM :1970 A ge:54 Y S ex:Male Date:06/18/2024 Address:[address], [place] Pcp:Ray Porter Subjective: * Chief Complaints: * * Medical History: Objective: * Vitals: Assessment: Plan: * Treatment: * Images: * The named appointment provid er may or may not be the originator of this progress note, and it is not deemed complete until electronically signed by the appointment provider. Sign off status: Pending * Provider: Leta Aguilera DPM Date: 0 06/18/2024 Generated for Romulo eden/Tucker/Kita on: 10:02 AM EDT
--- OUTSIDE RECORDS SUMMARY | 2024-10-08 05:30 | XMS_ITS ---
Author Organization [facility] Address [address] [place] [address] Care Team Providers Care Sr. Strategic Sourcing Manager Name Role Phone Ray Porter Primary Care Provider Sweta Aguilera [phone] Encounters Encounter Location Date Provider Diagnosis [address] [address] 10/08/2024 Sweta Aguilera Plan Of Treatment No Information Progress Notes * Yomi PONCE EDOB:1970 (55 yo M)Acc No.[id number]:10/08/2024 Progress Notes Patient: Yomi RODRIGUEZ Provider: Leta Aguilera DPM :1970 A ge:54 Y S ex:Male Date:10/08/2024 Address:[address], [place] Pcp:Ray Porter Subjective: * Chief Complaints: * * Medical History: Objective: * Vitals: Assessment: Plan: * Treatment: * Images: * The named appointment provid er may or may not be the originator of this progress note, and it is not deemed complete until electronically signed by the appointment provider. Sign off status: Pending * Provider: Leta Aguilera DPM Date: 12/09/2023 Generated for Romulo eden/Tucker/Kita on: 10:03 AM EDT
--- OUTSIDE RECORDS SUMMARY | 2024-10-20 07:00 | XMS_ITS ---
Author Organization [facility] Address [address] [facility] [place] [address] Care Team Providers Care Cartridge Maker Name Role Phone Ray Porter Primary Care Provider Sweta Aguilera Unavailable [phone] Riki Mehta [phone] Encounters Encounter Location Date Provider Diagnosis [address] [place] [address] 10/20/2024 Riki Mehta Plan Of Treatment No Information Progress Notes * Yomi CAREY EDOB:1970 (55 yo M)Acc No.[id number]:10/20/2024 Progress Notes Patient: Yomi RODRIGUEZ Provider: Emmanuel Mheta D.P.M. :1970 A ge:54 Y S ex:Male Date:10/20/2024 Address[address] [place] Pcp:Ray Porter Subjective: * Chief Complaints: * * Medical History: Objective: * Vitals: Assessment: Plan: * Treatment: * Images: * The named appointment provid er may or may not be the originator of this progress note, and it is not deemed complete until electronically signed by the appointment provider. Sign off status: Pending * Provider: Emmanuel Mehta D.P.M. Date: 12/21/2023 Generated for Romulo eden/Tucker/Leobardosmitting on: 10:02 AM EDT
--- OUTSIDE RECORDS SUMMARY | 2024-11-26 05:30 | XMS_ITS ---
Author Organization [facility] Address [address] [facility] [place] [address] Care Team Providers Care Continuous Washer Operator Name Role Phone Ray Porter Primary Care Provider Sweta Aguilera Unavailable [phone] Riki Mehta [phone] Encounters Encounter Location Date Provider Diagnosis [address] [place] [address] 11/26/2024 Riki Mehta Plan Of Treatment No Information Progress Notes * Yomi CAREY EDOB:1970 (55 yo M)Acc No.[id number]:11/26/2024 Progress Notes Patient: Yomi RODRIGUEZ Provider: Emmanuel Mehta D.P.M. :1970 A ge:54 Y S ex:Male Date:11/26/2024 Address[address] [place] Pcp:Ray Porter Subjective: * Chief Complaints: * [...] 0 11/26/2024 Generated for Romulo eden/Tucker/eTnazariosmitting on: 10:02 AM EDT
--- NOTE | 2025-08-18 09:19 | MHC.OFFVIS ---
Vital Signs 08/18/25 09:22 Height 5 ft 11 in Weight 282 lb BMI 39.3 BP 145/78 H Blood Pressure Location Lt brachial Position Sitting Pulse 73 Pulse Oximetry (%) 98 Oxygen Delivery Method Room Air Intake Visit Reasons: jm pt colo screening Intake Note: Patient complex follow up for pre colonoscopy screening, venessa was 06/2022. Patient cc: constipation on and off. Denies any other GI issues. Channel Specialist Required: No Channel Specialist Services: Channel Specialist Offered & Declined Accompanied by: Family/Other Allergies No Known Allergies (No Known Allergies*) Allergy (Verified 06/23/25 11:02) Medication List - Last Reconciled 08/18/25 by Lali Jason CNP acetaminophen 650 mg (2 x 325 mg) PO Q6H PRN apixaban (Eliquis) 5 mg PO BID 90 days aspirin 81 mg PO DAILY atorvastatin 80 mg PO DAILY docusate sodium 100 mg PO DAILY olanzapine 2.5 mg PO DAILY polyethylene glycol 3350 (Miralax) 17 grams PO BID PRN sertraline 50 mg PO DAILY HPI HPI jm pt colo screening: Details: Patient is a 55-year-old male with PMH of obesity, depression, anxiety, biploar, CAD, HTN, HLD, GA with coronary stent on anticoagulation and antiplatelet therapy. Referred by PCP for pre colonoscopy screening. Patient is accompanied by his partner who is helping with translation. Yomi missed his colonoscopy appointment in 2021. He reports chronic constipation, with bowel movements almost daily but requiring frequent straining to evacuate stools. He has trialed multiple remedies including prune juice and uesd-bef-scyxnth powders such as MiraLAX, which he uses intermittently, without substantial relief. Denies hematochezia and describes stool passage as consistently difficult. Appetite is increased, with repeated mention of frequent eating and stable weight (self-reported fluctuations within a few pounds, no unexplained weight loss). He occasionally experiences abdominal pain, but attributes this to laughter and does not describe persistent or focal pain. Notable comorbidities include history of GA with coronary stent, currently on anticoagulation and antiplatelet therapy, dyslipidemia, and psychiatric conditions managed with psychotropics. Denies prior cancer, though paternal history is significant for unspecified malignancy. Recent labs show elevated liver enzymes, thought likely secondary to non-fasting state; no hepatitis C detected, but lacks immunity to hepatitis B. Patient denies: fever/chills, n/v, appetite changes, pyrosis, regurgitation,dysphasia, unintentional wt loss, ab pain or melena/hematochezia. Social hx: -denies ETOH use -denies recreational drug use -non-smoker - family hx as below -denies personal hx of CA -tolerated anesthesia in the past without difficulty. [facility] Medical History (Updated 08/18/25 @ 10:09 by Lali Jason CNP) Literacy problem Depression Anxiety History of GA (myocardial infarction) Chest pain Intermittent chest pain CAD (coronary artery disease) Class 2 severe obesity with body mass index (BMI) of 35 to 39.9 with serious comorbidity Bipolar illness High cholesterol HTN (hypertension) Surgical History Hx of heart artery stent Status post excision of lipoma Family History Father Cancer Mother No problems noted. Family/Other FH: mental illness Mental health disorder Brother No problems noted. Son In good health Daughter In good health Substance use disorder Social History Household Members: Significant Other Housing: House Do you presently have visiting nurse or other home services: No Alcohol intake: never Patient Tobacco Use Status: Never used Tobacco e-Cigarette/Vaping Use: Never Used Second Hand Smoke Exposure: No service: No Current occupational status: disabled Cognitive needs: No Hearing needs: No Vision needs: No Review of Systems Const Reports as per HPI ENT Reports as per HPI Card Reports as per HPI Resp Reports as per HPI GI Reports as per HPI Reports as per HPI Physical Exam Vital Signs: Last Vital Signs Pulse 73 08/18/25 09:22 BP 145/78 H 08/18/25 09:22 Pulse Ox 98 08/18/25 09:22 Oxygen Delivery Method Room Air 08/18/25 09:22 BMI result Body Mass Index 39.3 Const General: healthy appearing, no acute distress and well developed Nutritional Appearance: average body habitus Orientation/consciousness: patient oriented x3 HEENT Head: Yes normal to inspection, Yes normocephalic and Yes atraumatic Face and sinus: Yes normal facial exam Eyes General: appearance normal, both eyes and all related structures Neck Neck: Yes normal visual inspection Resp Effort & Inspection: normal respiratory effort, able to speak in complete sentences, no tracheal deviation and symmetric chest movement Cardio Jugular venous distension: no JVD GI Inspection: Yes normal to inspection, No distended and Yes obesity Palpation (GI): not firm, nontender and No hepatosplenomegaly present Auscultation: normal bowel sounds Neuro General: patient oriented x3 Gait exam (Neuro): Normal gait present Psych Appearance: grossly normal Mental Status: mental status grossly normal Speech and movement: Normal speech and movement present Affect: normal affect Attitude: cooperative Thought process: Normal thought process present Thought content: Normal thought content present Insight: Good insight present (Psych) Judgement: Good judgement present (Psych) Assessment & Plan Assessment & Plan (1) Screening for colon cancer: Code(s): Z12.11 - Encounter for screening for malignant neoplasm of colon Category: Medical Plan: Due for index screening colonoscopy. No alarm features. Medications: -prescriptions for laxative tablets and PEG sent to pharmacy; instructions on clear liquid diet given. Understands Eliquis and ASA will need to be held days prior to procedure. Nurse to review med holds per protocol. Prep instructions written and provided, including visual/video resources due to reported literacy challenges. Patient educated on scheduling process, procedure preparation, including avoiding certain foods and ensuring clear liquid intake Advised on necessity for ride post-procedure due to sedation. (2) Constipation: Code(s): K59.00 - Constipation, unspecified Category: Medical Qualifiers: Constipation type: unspecified constipation type Qualified Code(s): K59.00 - Constipation, unspecified Plan: Daily straining, lack of response to standard OTC agents, risk for incomplete bowel prep. Additional Testing: None outside standard colonoscopy prep. Medication Management: Begin daily Colace and MiraLAX; refill provided. Prescribed PEGl colonoscopy prep solutions. Lifestyle Recommendations: Increase dietary fiber (fruits, vegetables, beans, nuts/seeds), minimize processed/canned foods with high sodium/sugar. Provided handout with high-fiber foods. Follow-Up: Monitor response to bowel regimen; contact GI with persistence or worsening prior to colonoscopy date. (3) Elevated transaminase level: Code(s): R74.01 - Elevation of levels of liver transaminase levels Category: Medical Plan: Mild transaminitis on labs performed non-fasting. Additional Testing: Repeat fasting labs, including LFTs, Hepatitis panel. Medication Management: -declined Hep B vaccine -None pending repeat results. Lifestyle Recommendations: Minimize alcohol, monitor diet for hepatotoxic agents. Follow-Up: Labs to be repeated after fasting; abnormal results to be communicated via phone call. Plan Follow-up after endoscopy or sooner as needed Time: I spent a total of 35 minutes on the date of encounter which includes: Preparing to see the patient (reviewed previous documentation, test results and medical history) Performing a medically appropriate exam and/or evaluation Ordering medications, tests, and procedures Documenting clinical information in the health record Orders: Orders Comprehensive [place]. Panel Fast Today R74.01 - Elevation of levels of liver transaminase levels Referrals GI Procedure Notification Z12.11 - Encounter for screening for malignant neoplasm of colon Medications: New bisacodyl Take per colonoscopy instructions 20 mg (4 x 5 mg) PO ONCE 4 tabs 0RF peg 3350-electrolytes [id number] -5.86 gram until fecal effluent is clear 240 mL PO ONCE 4,000 mL 0RF simethicone (Gas Relief (simethicone)) per colonoscopy prep instructions 500 mg (4 x 125 mg) PO ONCE 4 caps 0RF abdominal distention Changed From polyethylene glycol 3350 (Miralax) 17 grams PO BID PRN 850 grams 2RF constipation To polyethylene glycol 3350 (Miralax) 17 grams PO DAILY 850 grams 2RF constipation Refilled docusate sodium 100 mg PO DAILY 90 tabs 1RF Coding Level of Care Code New Pt New Pt Level 3 (22155) Patient Type New Diagnoses Screening for colon cancer Z12.11 Constipation, unspecified constipation type K59.00 Constipation type: unspecified constipation type Elevated transaminase level R74.01
[2025-08-18 09:22] VITALS: BP 145/78; PULSE 73; O2SAT 98; BMI 39.3
--- OUTSIDE RECORDS SUMMARY | 2025-08-18 10:02 | XMS_ITS | Clinical Summary ---
Author Organization [employer] Address [address] [facility] 7t [place] [address] Care Team Providers Care Data Examination Clerk Name Role Phone Unavailable Primary Care Provider Unavailabl e Active Problems Problem Noted Date Diagnosed Date Substance use disorder 06/16/2025 Encounters * This document contains information received from the source organization and may not represent a complete record from that organization. Date Type Department Care Team Description 08/13/2025 Patient Outreach [facility] MEDICINE [address] [place] [address] Lamin Mabry Recovery Supports 07/07/2025 10:30 AM EDT Office Visit [address] [address] Sánchez Nash MD Substance use disorder (Primary Dx) 07/07/2025 Travel 06/22/2025 Patient Outreach [facility] MEDICINE [address] [place] [address] James Duran Recovery Supports 06/18/2025 Patient Outreach [address] [address] Alex Barreto Recovery Supports 06/18/2025 Patient Outreach [address] [address] Alex Barreto Recovery Supports 06/17/2025 Patient Outreach [facility] MEDICINE [address] [place] [address] James Duran Recovery Supports 06/16/2025 10:00 AM EDT Office Visit [address] [address] Sánchez Nash MD Substance use disorder (Primary Dx) 06/16/2025 Travel 06/15/2025 Patient Outreach [facility] MEDICINE [address] [place] [address] James Duran Recovery Supports 06/15/2025 Patient Outreach [facility] MEDICINE [address] [place] [address] Lamin Mabry RC Recovery Supports 06/14/2025 Patient Outreach [facility] MEDICINE [address] [place] [address] Oli Joaquin RC Recovery Supports 06/10/2025 Patient Outreach [facility] MEDICINE [address] [place] [address] Estevan Alex RC Recovery Supports 06/07/2025 Patient Outreach [facility] MEDICINE [address] [place] [address] Oli Joaquin RC Recovery Supports from Last 3 Months [...] COVID-19 Vaccine ( - 2023-2 5 season) 2025 Influenza Vaccine [...] patient's age to complete this topic Insurance [facility] < 65 [facility]
--- OUTSIDE RECORDS SUMMARY | 2025-08-18 10:02 | XMS_ITS | Encounter Summary ---
Author Organization [employer] Address [address] [facility] 7t [place] [address] Care Team Providers Care Tube Mounter Name Role Phone Unavailable Primary Care Provider Unavailabl e Reason for Visit * Reason Comments [facility] Recovery Supports Encounter Details Date Type Department Care Team (Late st Contact Info) Description 08/13/2025 Patient Outreach [facility] MEDICINE [address] [place] [address] Lamin Mabry Recovery Supports Social History Tobacco Use Types Packs/Day Years Used Date Smoking Tobacco: Never Assessed Sex and Gender Information Value Date Recorded Sex Assigned at Male 11/01/2023 12:12 PM EST Legal Sex Male 8:14 AM EDT Gender Identity Male 11/01/2023 12:12 PM EST Sexual Orientation Straight 11/01/2023 12 :12 PM EST documented as of this encounter Progress Notes * Lamin Mabry - 08/13/2025 3:36 PM EDT I met with Yomi today. Setting: in person at [facility] Recovery Wellness Goals worked on: Social Stability Action taken/next steps: Attended alcohol and drug free activity Additional comments: Lamin Mabry documented in this encounter Plan of Treatment Not on file documented as of this encounter Visit Diagnoses Not on filedocumented in this encounter
--- OUTSIDE RECORDS SUMMARY | 2025-08-18 10:03 | XMS_ITS | Patient Health Record ---
Author Organization [facility] Address [address] [place] [address] Care Team Providers Care Repair Supervisor Name Role Phone Ray Porter Primary Care Provider Sweta Aguilera Unavailable [phone] Riki Mehta Unavailable [phone] Reason For Referral No Information Encounters Encounter Location Date Provider Diagnosis [place] [address] [address] 10/01/[address] [address] 10/12/2024 [address] [address] 11/18/2024 Sweta Aguilera Plan Of Treatment No Information Insurance Providers Payer Name Payer Address Payer Phone Subscriber Number Group Number Insured Name Patient Relationship to Insured Coverage Start Date Coverage End Date [facility] [employer] Claims [address] [place] [id number] Yomi Ponce Self - patient is the insured
== END 2025-08-18 10:05 | disposition home or self-care (01) ==
LOC: HO.HGI 09:05
PROVIDERS: PCP Internal Medicine; Visit Provider Nurse Practitioner Family
DX: Z12.11 Encounter for screening for malignant neoplasm of colon (principal); K59.00 Constipation, unspecified; R74.01 Elevation of levels of liver transaminase levels
CPT/HCPCS: 99024

== ENCOUNTER → 2025-08-18 09:05 | Outpatient (BNVA) | payer OTHER, SELFPAY | PROVIDERS: PCP Internal Medicine; Visit Provider Nurse Practitioner Family | DX: Z12.11 Encounter for screening for malignant neoplasm of colon (principal); K59.00 Constipation, unspecified; R74.01 Elevation of levels of liver transaminase levels | CPT/HCPCS: 99212 ==

== ENCOUNTER 2025-08-27 14:03 | Outpatient (AMB) | payer OTHER, SELFPAY ==
--- OUTSIDE RECORDS SUMMARY | 2024-06-18 06:30 | XMS_ITS ---
Author Organization [facility] Address [address] [place] [address] Care Team Providers Care Ship Surveyor Name Role Phone Ray Porter Primary Care Provider Sweta Aguilera [phone] Encounters Encounter Location Date Provider Diagnosis [address] [address] 06/18/2024 Sweta Aguilera Plan Of Treatment No Information Progress Notes * Yomi PONCE EDOB:1970 (55 yo M)Acc No.[id number]:06/18/2024 Progress Notes Patient: Yomi RODRIGUEZ Provider: Leta Aguilera DPM :1970 A ge:54 Y S ex:Male Date:06/18/2024 Address:[address], [place] Pcp:Ray Porter Subjective: * Chief Complaints: * [...] DPM Date: 0 06/18/2024 Generated for Romulo eden/Tucker/Iselaitting on: 02:52 PM EDT
--- OUTSIDE RECORDS SUMMARY | 2024-10-08 05:30 | XMS_ITS ---
Author Organization [facility] Address [address] [place] [address] Care Team Providers Care Cattle Killer Name Role Phone Ray Porter Primary Care Provider Sweta Aguilera [phone] Encounters Encounter Location Date Provider Diagnosis [address] [address] 10/08/2024 Sweta Aguilera Plan Of Treatment No Information Progress Notes * Yomi PONCE EDOB:1970 (55 yo M)Acc No.[id number]:10/08/2024 Progress Notes Patient: Yomi RODRIGUEZ Provider: Leta Aguilera DPM :1970 A ge:54 Y S ex:Male Date:10/08/2024 Address:[address], [place] Pcp:Ray Porter Subjective: * Chief Complaints: * [...] Date: 12/09/2023 Generated for Romulo eden/Tucker/Kita on: 02:52 PM EDT
--- OUTSIDE RECORDS SUMMARY | 2024-10-20 07:00 | XMS_ITS ---
Author Organization [facility] Address [address] [place] [address] Care Team Providers Care Scouring Machine Tender Name Role Phone Ray Porter Primary Care Provider [phone] Sweta Aguilera Unavailable [phone] Riki Mehta [phone] Encounters Encounter Location Date Provider Diagnosis [address] [place] [address] 10/20/2024 Riki Mehta Plan Of Treatment No Information Progress Notes * Yomi CAREY EDOB:1970 (55 yo M)Acc No.[id number]:10/20/2024 Progress Notes Patient: Yomi RODRIGUEZ Provider: Emmanuel Mehta D.P.M. :1970 A ge:54 Y S ex:Male Date:10/20/2024 [address] [place] Pcp:Ray Porter Subjective: * Chief Complaints: * * Medical History: Objective: * Vitals: Assessment: Plan: * Treatment: * Images: * The named appointment provid er may or may not be the originator of this progress note, and it is not deemed complete until electronically signed by the appointment provider. Sign off status: Pending * Provider: Emmanuel Mehta D.P.M. Date: 12/21/2023 Generated for Romulo eden/Tucker/eTnazariosmitting on: 02:52 PM EDT
--- OUTSIDE RECORDS SUMMARY | 2024-11-26 05:30 | XMS_ITS ---
Author Organization [facility] Address [address] [place] [address] Care Team Providers Care Jailer Chief Name Role Phone Ray Porter Primary Care Provider Sweta Aguilera Unavailable [phone] Riki Mehta [phone] Encounters Encounter Location Date Provider Diagnosis [address] [place] [address] 11/26/2024 Riki Mehta Plan Of Treatment No Information Progress Notes * Yomi CAREY EDOB:1970 (55 yo M)Acc No.[id number]:11/26/2024 Progress Notes Patient: Yomi RODRIGUEZ Provider: Emmanuel Mehta D.P.M. :1970 A ge:54 Y S ex:Male Date:11/26/2024 Address[address] [place] Pcp:Ray Porter Subjective: * Chief Complaints: * [...] 0 11/26/2024 Generated for Romulo eden/Tucker/eTnazariosmitting on: 02:52 PM EDT
--- NOTE | 2025-08-27 14:10 | A.OFFVIS_ITS ---
Vital Signs 3 08/27/25 14:20 Height 5 ft 11 in Weight 287 lb BMI 40.0 BP 189/107 H Blood Pressure Location Lt brachial Position Sitting Pulse 80 Intake Visit Reasons: Benign lipomatous neoplasm, forehead/midback Intake Note: Patient is seen in office for lipoma of the forehead and mid back. 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 Required: No Accompanied by: Self / Same As Patient Allergies No Known Allergies (No Known Allergies*) Allergy (Verified 08/27/25 14:18) Medication List - Last Reconciled 08/27/25 by Yomi Christopher MD acetaminophen 650 mg (2 x 325 mg) PO Q6H PRN apixaban (Eliquis) 5 mg PO BID 90 days aspirin 81 mg PO DAILY atorvastatin 80 mg PO DAILY bisacodyl 20 mg (4 x 5 mg) PO ONCE docusate sodium 100 mg PO DAILY olanzapine 2.5 mg PO DAILY peg 3350-electrolytes 236-22.74-6.74 -5.86 gram 240 mL PO ONCE polyethylene glycol 3350 (Miralax) 17 grams PO DAILY sertraline 50 mg PO DAILY simethicone (Gas Relief (simethicone)) 500 mg (4 x 125 mg) PO ONCE HPI Comments Details: 55-year-old male patient with a previous history of MD, s/p stent placement currently on Eliquis, presenting for evaluation of a mass in the midback and right frontal scalp. He reports a previous excision of a sebaceous cyst of the midback at the same location many years ago. This has subsequently returned and continues to increase in size. He denies any pain, redness or discharge from the site. He also has a newer lump located in the frontal scalp which he finds to be hard. He denies a history of trauma to the scalp. He is interested in having the lumps removed. He denies any previous imaging of the scalp lesion. [facility] Medical History Literacy problem Depression Anxiety History of MD (myocardial infarction) Chest pain Intermittent chest pain CAD (coronary artery disease) Class 2 severe obesity with body mass index (BMI) of 35 to 39.9 with serious comorbidity Bipolar illness High cholesterol HTN (hypertension) Surgical History Hx of heart artery stent Status post excision of lipoma Family History Father Cancer Mother No problems noted. Family/Other FH: mental illness Mental health disorder Brother No problems noted. Son In good health Daughter In good health Substance use disorder Social History Household Members: Significant Other Housing: House Do you presently have visiting nurse or other home services: No Alcohol intake: never Patient Tobacco Use Status: Never used Tobacco e-Cigarette/Vaping Use: Never Used Second Hand Smoke Exposure: No service: No Current occupational status: disabled Cognitive needs: No Hearing needs: No Vision needs: No Review of Systems Const All systems reviewed & are unremarkable except as noted in HPI and below Physical Exam Vital Signs: Last Vital Signs Pulse 80 08/27/25 14:20 BP 189/107 H 08/27/25 14:20 BMI result Body Mass Index 40.0 Const General: cooperative and no acute distress Nutritional Appearance: well nourished Orientation/consciousness: patient oriented x3 Limitations: no limitations HEENT Other: Hard palpable mass, non mobile right frontal scalp approximately 2.5 cm in diameter. Nontender to palpation, no overlying skin changes. Appears to be fixed to skull. Head: Yes normocephalic and Yes atraumatic Ears: hearing grossly normal bilaterally Resp Effort & Inspection: normal respiratory effort, no audible wheezes, no cough and no respiratory distress Cardio Jugular venous distension: no JVD GI Inspection: Yes normal to inspection Back/Spine/Pelvis Other: 5 cm sebaceous cyst in the midback midline as noted below. Previous incision noted directly over the cyst from previous excision. Nontender to palpation, non fluctuant. Back/spine/pelvis image: 2 1. 5 cm sebaceous cyst mid back, recurrent Skin Other: Warm, dry, no rash Neuro General: patient oriented x3 Extrem General: Yes no clubbing, cyanosis or edema Assessment & Plan Assessment & Plan (1) Mass of scalp: Code(s): R22.0 - Localized swelling, mass and lump, head Category: Medical (2) Epidermal inclusion cyst: Code(s): L72.0 - Epidermal cyst Category: Medical Plan 55-year-old male patient with multiple medical problems including previous MD, stent placement, on Eliquis presenting with a hard mass on the scalp which is nonmobile and appears to be bony in feel. He denies a history of trauma or surgery in this location. I recommended further evaluation with CT of the head to evaluate for bony lesions. He also has a recurrent sebaceous cyst of the back which is currently noninfected. I will await the findings of the CT before deciding on timing of surgery. Patient expressed understanding and agrees with the plan. Orders: Orders 2 CT head/brain wo IV con Today R22.0 - Localized swelling, mass and lump, head Coding Level of Care Code New Pt Level 4 (60941) Diagnoses Mass of scalp R22.0 Epidermal inclusion cyst L72.0
[2025-08-27 14:20] VITALS: BP 189/107; PULSE 80; BMI 40.0
--- OUTSIDE RECORDS SUMMARY | 2025-08-27 14:52 | XMS_ITS | Patient Health Record ---
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 Name Role Phone Ray Porter Primary Care Provider Sweta Aguilera Unavailable [phone] Riki Mehta Unavailable [phone] Reason For Referral No Information Encounters Encounter Location Date Provider Diagnosis [place] [facility] [id number] 10/01/[address] [address] 10/12/2024 [address] [address] 11/18/2024 Sweta Aguilera Plan Of Treatment No Information Insurance Providers Payer Name Payer Address Payer Phone Subscriber Number Group Number Insured Name Patient Relationship to Insured Coverage Start Date Coverage End Date [facility] [employer] Claims [address] [place] [id number] Yomi Ponce Self - patient is the insured
== END 2025-08-27 14:34 | disposition home or self-care (01) ==
LOC: HO.HGS 14:04
PROVIDERS: PCP Internal Medicine; Visit Provider Surgery
DX: R22.0 Localized swelling, mass and lump, head (principal); L72.0 Epidermal cyst
CPT/HCPCS: 99204

== ENCOUNTER → 2025-08-27 14:03 | Outpatient (BNVA) | payer OTHER, SELFPAY | PROVIDERS: PCP Internal Medicine; Visit Provider Surgery | DX: R22.0 Localized swelling, mass and lump, head (principal); L72.0 Epidermal cyst | CPT/HCPCS: 99202 ==

== ENCOUNTER 2025-09-30 11:00 | Outpatient (AMB) | payer OTHER, SELFPAY ==
[2025-09-30 11:20] VITALS: BP 140/100; PULSE 77; TEMP 36.2; O2SAT 98; BMI 40.2
--- NOTE | 2025-09-30 11:20 | A.OFFPC_ITS ---
Vital Signs 09/30/25 11:20 09/30/25 11:29 Height 5 ft 11 in Weight 288 lb 4 oz BMI 40.2 BP 140/100 H 132/86 Blood Pressure Location Lt brachial Lt brachial Position Sitting Sitting Pulse 77 Pulse Source Pulse Oximeter Temp 97.1 F Temp Source Temporal Artery Scan Pulse Oximetry (%) 98 Oxygen Delivery Method Room Air Intake Visit Reasons: follow up Intake Note: Patient is here to follow up on HTN. Airline Stewardess Required: No Mapping Specialist: Present Accompanied by: Spouse Allergies No Known Allergies (No Known Allergies*) Allergy (Verified 09/30/25 11:20) Tobacco use date assessed: 09/30/25 Dental Screening Dental Screen Date: 03/25/25 HPI HPI Comments History of Present Illness Details History of Present Illness - The patient is a 55-year-old male pres enting for a follow-up visit for medication management. - He had previously stopped his medicati ons but reports he is now taking them again and requires refills. - The patient is followed by Dr. Zhane bowman for a lump on his forehead and for bony lesions on his back. - An x-ray of the forehead is planned be fore any potential procedure. - He also has a colonoscopy scheduled fo r next month. - He reports that his weight has been in creasing and plans to join a gym. - He notes difficulty breathing, which i s thought to be related to his weight. - His last blood work was in February and was noted to be good. Social History - Diet: He reports eating a lot of bread every day and was counseled to reduce his intake of carbohydrates, including rice and pasta. - Exercise: He plans to join a gym to lo se weight. - Transportation: He uses the bus. Results - Labs: Blood work from February 2023 was not ed to be good. [facility] Medical History Literacy problem Depression Anxiety History of OR (myocardial infarction) Chest pain Intermittent chest pain CAD (coronary artery disease) Class 2 severe obesity with body mass index (BMI) of 35 to 39.9 with serious comorbidity Bipolar illness High cholesterol HTN (hypertension) Surgical History Hx of heart artery stent Status post excision of lipoma Family History Father Cancer Mother No problems noted. Family/Other FH: mental illness Mental health disorder Brother No problems noted. Son In good health Daughter In good health Substance use disorder Social History Household Members: Significant Other Housing: House Do you presently have visiting nurse or other home services: No Alcohol intake: never Patient Tobacco Use Status: Never used Tobacco e-Cigarette/Vaping Use: Never Used Second Hand Smoke Exposure: No service: No Current occupational status: disabled Cognitive needs: No Hearing needs: No Vision needs: No Questionnaire Thrive Questionnaire Date Thrive assessed: 06/23/25 I am a: Patient What is your living situation today?: I have a steady place to live Within the past 12 months, did the food you bought not last and you didn't have the money to get more?: Never true Within the past 12 months, did you worry whether your food would run out before you got money to buy more?: Never true Do you have trouble paying for medicines?: No Do you have trouble getting transportation to medical appointments?: No Do you have trouble paying your heating and electricity bill?: No Do you have trouble taking care of your child, family member or friend?: No Do you have trouble with day-to-day activities such as bathing, preparing meals, shopping, managing finances, etc.?: No Are you currently unemployed and looking for a job?: Yes Are you interested in more education?: Yes Please select the resources that you would like help with: None Currently or been in a relationship where the following occur: No concerns reported THRIVE Score: 0 TANO-7 AMB Questionnaire TANO-7 Date TANO - 7 assessed: 06/23/25 Source: Developed by Drs. Blair Mercado, Melissa Driscoll, [facility] and colleagues, with an educational bill from [employer]. Review of Systems Narrative Review of Systems - Constitutional: Reports weight gain. - Respiratory: Reports dyspnea. - Cardiovascular: Denies chest pain. Physical exam (Primary Care) Vital Signs: Last Vital Signs Temp 97.1 F 09/30/25 11:20 Pulse 77 09/30/25 11:20 BP 132/86 09/30/25 11:29 Pulse Ox 98 09/30/25 11:20 Oxygen Delivery Method Room Air 09/30/25 11:20 BMI result Body Mass Index 40.2 Tobacco/Smoking Status: Tobacco use Status Tobacco use date assessed 09/30/25 09/30/25 11:30 Patient Tobacco Use Status Never used Tobacco 09/30/25 11:30 e-Cigarette/Vaping Use Never Used 09/30/25 11:30 Thrive Assessment: Date of Thrive Assessment Date Thrive assessed 06/23/25 09/30/25 11:30 Currently or been in a relationship where the following occur: No concerns reported Narrative Physical Exam General: Appearance normal, both eyes and all related structures Nutritional Appearance: Well nourished, but patient reports weight gain Orientation/consciousness: Patient oriented x3 Limitations: No limitations Head: Normal to inspection, but patient has a lump on the forehead Neck: Normal visual inspection Chest: Normal palpation of entire chest wall Respiratory: Patient reports difficulty breathing Neurology: Patient oriented x3 Coding Level of Care Code Est Pt Level 4 (39539) Add On Problem Visit Only Diagnoses Essential hypertension I10 Assessment & Plan Assessment & Plan (1) HTN (hypertension): Code(s): I10 - Essential (primary) hypertension Category: Medical Plan Plan - Medication refills will be sent upon request from the patient's pharmacy. - The patient was counseled to reduce his carbohydrate intake, including bread, rice, and pasta, for weight management. - The patient will proceed with his scheduled colonoscopy next month. - The patient will follow up with the surgeon for further evaluation of the forehead lump, which includes a planned x-ray, and for a procedure on his back lesions. - The patient declined the influenza vaccine. - Follow up in the clinic in 3 months. Discussion Notes I advised the patient that he should have his pharmacy send a request for medication refills. We discussed that his difficulty breathing is likely related to his weight, and I counseled him on dietary changes, including reducing carbohydrates such as bread, rice, and pasta. We also reviewed his plans to follow up with his surgeon for the forehead mass and back lesions, as well as his upcoming colonoscopy. The patient declined the influenza vaccine at this visit. A follow-up appointment was scheduled for three months to re-evaluate. Patient Instructions - Call your pharmacy and ask them to send me a request for your medication refills. - You will continue with your plan to have a colonoscopy next month. - Follow up with your surgeon regarding the lump on your forehead and the lesions on your back. - To help with your weight and breathing, try to eat less bread, rice, and pasta. - You have decided not to get a flu shot today. - Please schedule a follow-up appointment to see me in 3 months. Medications: Refilled acetaminophen 650 mg (2 x 325 mg) PO Q6H PRN 30 tabs 0RF Pain, Mild (Pain Scale 1-3) apixaban (Eliquis) Take Eliquis 10 mg (two 5 mg tablets) twice daily for 4 more days then Take Eliquis 5 mg 1 tablet twice daily 5 mg PO BID 180 tabs 1RF 90 days atorvastatin 80 mg PO DAILY 90 tabs 1RF olanzapine 2.5 mg PO DAILY 90 tabs 1RF aspirin 81 mg PO DAILY 90 tabs 1RF sertraline 50 mg PO DAILY 90 tabs 1RF
[2025-09-30 11:29] VITALS: BP 132/86
== END 2025-09-30 12:44 | disposition home or self-care (01) ==
LOC: HO.HMCH 11:01
PROVIDERS: PCP Internal Medicine; Visit Provider Internal Medicine
DX: I10 Essential (primary) hypertension (principal)

== ENCOUNTER → 2025-09-30 11:00 | Outpatient (BNVA) | payer OTHER, SELFPAY | PROVIDERS: PCP Internal Medicine; Visit Provider Internal Medicine | DX: I10 Essential (primary) hypertension (principal) | CPT/HCPCS: 99212 ==